=== PATIENT | male | born 1985 | race Caucasian/White ===

== ENCOUNTER 2016-05-13 18:30 | Emergency (ER) | payer OTHER ==
[2016-05-13] MEDS ORDERED: diphenhydrAMINE 25 MG CAPSULE PO STA (20:04)
[2016-05-13] MEDS ORDERED: diphenhydrAMINE 25 MG CAPSULE PO ONE (20:05)
[2016-05-13] MEDS ORDERED: NICOTINE 21 MG PATCH TOP STA (21:46)
[2016-05-13] MEDS ORDERED: NICOTINE 21 MG PATCH TOP ONE (21:49)
[2016-05-13] MEDS ORDERED: LORazepam 0.5 MG TABLET PO STA (23:13)
[2016-05-13] MEDS ORDERED: LORazepam 0.5 MG TABLET ONE (23:17)
[2016-05-14] MEDS ORDERED: LORazepam 0.5 MG TABLET PO STA ×2 (00:59→10:59)
[2016-05-14] MEDS ORDERED: LORazepam 0.5 MG TABLET ONE ×2 (01:03→11:02)
== END 2016-05-14 11:07 | disposition home or self-care (01) ==
DX: F10.129 Alcohol abuse with intoxication, unspecified (principal); R45.851 Suicidal ideations; Y90.8 Blood alcohol level of 240 mg/100 ml or more; F41.9 Anxiety disorder, unspecified; F32.9 Major depressive disorder, single episode, unspecified; F90.9 Attention-deficit hyperactivity disorder, unspecified type; F17.200 Nicotine dependence, unspecified, uncomplicated
CPT/HCPCS: 36415; 80053; 80306; 80307; 80320; 80329; 81003; 83690; 84443; 85025; 99284; A9270

== ENCOUNTER 2016-07-29 13:58 | Outpatient (CLI) | payer OTHER | END 2016-07-29 13:59 | disposition home or self-care (01) | DX: G47.30 Sleep apnea, unspecified (principal); G47.8 Other sleep disorders; R06.83 Snoring; R51 Headache; G47.10 Hypersomnia, unspecified ==

== ENCOUNTER 2016-08-22 22:35 | Outpatient (CLI) | payer OTHER | END 2016-08-22 22:36 | disposition home or self-care (01) | LOC: SC 22:35 | PROVIDERS: ATTEND Internal Medicine Pulmonary Disease | DX: G47.30 Sleep apnea, unspecified (principal) | CPT/HCPCS: 95810 ==

== ENCOUNTER 2016-10-28 15:26 | Outpatient (CLI) | payer OTHER | END 2016-10-28 15:27 | disposition home or self-care (01) | LOC: SC 15:26 | PROVIDERS: ATTEND Internal Medicine Pulmonary Disease | DX: G47.33 Obstructive sleep apnea (adult) (pediatric) (principal) | CPT/HCPCS: 99212; 99213 ==

== ENCOUNTER 2016-12-01 19:26 | Outpatient (CLI) | payer OTHER | END 2016-12-01 19:27 | disposition home or self-care (01) | LOC: SC 19:26 | PROVIDERS: ATTEND Internal Medicine Pulmonary Disease | DX: G47.8 Other sleep disorders (principal) | CPT/HCPCS: 95810 ==

== ENCOUNTER 2016-12-17 14:19 | Outpatient (CLI) | payer OTHER | END 2016-12-17 14:20 | disposition home or self-care (01) | LOC: SC 14:19 | PROVIDERS: ATTEND Internal Medicine Pulmonary Disease | DX: G47.8 Other sleep disorders (principal) | CPT/HCPCS: 99212; 99213 ==

== ENCOUNTER 2017-02-19 15:17 | Emergency (ER) | payer OTHER ==
[2017-02-19] MEDS ORDERED: HYDROmorphone 1 MG/ML SYRINGE IM STA (16:26)
--- NOTE | 2017-02-19 16:29 | ED Physician Documentation ---
History of Present Illness - Stated complaint Stated Complaint: LOWER BACK PX - Chief complaint Chief Complaint: Back Pain - History obtained from History obtained from: Patient (pt states that approx 1-2 hours ago he bent over to tie his shoe and stretched nad had a sudden onset of lower back pain. he states that he now has tingling down his legs. no urinary sx, no bowel sx, no fevers, no trauma, no numbness in his upper thighs, states he had pain similar to this several years go and was dx with prostititis.) Review of Systems Constitutional: denies: Fever, Chills Cardiac: denies: Chest pain / pressure, Palpitations Respiratory: denies: Dyspnea, Cough GI: denies: Abdominal Pain, Nausea, Vomiting, Constipation, Diarrhea, Hematemesis : denies: Dysuria, Hesitancy, Unable to Void, Incontinent Skin: denies: Rash, Lesions Musculoskeletal: reports: Back pain. denies: Extremity pain, Joint pain, Joint swelling, Pain with weight bearing Neurologic: reports: Numbness (tingling to bilateral legs) PD PAST MEDICAL HISTORY - Past Medical History Cardiovascular: Other (anxiety, depression ) Psych: Depression - Past Surgical History Past Surgical History: Yes - Present Medications Home Medications: Ambulatory Orders Medication Instructions Recorded Confirmed HYDROcod/ACETAM 5/325 [[place] 5/325] 1 - 2 ea PO Q6H PRN #15 tablet 02/19/17 Mirtazapine [Remeron] 15 mg PO DAILY 02/19/17 02/19/17 OLANZapine [Zyprexa] 10 mg PO DAILY PM 02/19/17 02/19/17 - Allergies Allergies/Adverse Reactions: Allergies Allergy/AdvReac Type Severity Reaction Status Date / Time No Known Drug Allergies Allergy Verified 02/19/17 15:33 - Social History Does the pt smoke?: Yes Smoking Status: Current every day smoker Does the pt drink ETOH?: Yes Does the pt have substance abuse?: No - Immunizations Immunizations are current?: Yes PD ED PE NORMAL - Vitals Vital signs reviewed: Yes - General General: Alert and oriented X 3, No acute distress, Well developed/nourished - HEENT HEENT: Moist mucous membranes - Cardiac Cardiac: RRR, No murmur - Respiratory Respiratory: No respiratory distress - Abdomen Abdomen: Normal bowel sounds, Soft, Non tender - Back Back: No: No spinal TTP (TTP lower lumbar region medline and bilateral parapsinal. + uscle spasm with tenderness to the right paraspinal region. ) - Derm Derm: Normal color, No rash - Extremities Extremities: No deformity, No tenderness to palpate, No edema - Neuro Neuro: Alert and oriented X 3, Normal speech - Psych Psych: Normal mood, Normal affect Results - Vitals Vitals: Vital Signs - 24 hr 02/19/17 15:28 Temperature 36.4 C L Heart Rate 87 Respiratory 18 Rate Blood Pressure 159/102 H O2 Saturation 100 Oxygen O2 Source Room air PD MEDICAL DECISION MAKING - ED course Complexity details: d/w patient ED course: pt with hx and PE that is C/W MSK back pain. does have bilateral sx but has not other sx that are concerning for cauda equina. will hold on MRI for now. he urinated in the ER w/o problems. no trauma so doubt fracture. will hold on X-rays for now. discussed with the pt. he has flexeril and lidocaine patches at home. We discussed NSAID use. offered toradol but he refused. stated that he has had tradol in the past for his upper back pain but that did not help. will treat symptoms for now. pt was given return precautions. Departure - Departure Disposition: 01 Home, Self Care Clinical Impression: Back pain, Hypertension, Radiculopathy Condition: Good Instructions: ED Low Back Pain Injury Follow-Up: primary, care provider [Other] Prescriptions: HYDROcod/ACETAM 5/325 [Leonidas 5/325] 1 - 2 ea PO Q6H PRN #15 tablet PRN Reason: Pain Comments: take the medications as we discussed. Return to the ER for any new or worsening symptoms, fevers, increase in pain, problems urinating or any other concerning symptoms. Call your primary care provider for a follow up next week.
[2017-02-19] MEDS ORDERED: HYDROmorphone 1 MG/ML SYRINGE ONE (16:37)
[2017-02-19 17:09] VITALS: BP 156/107
== END 2017-02-19 17:08 | disposition home or self-care (01) ==
LOC: ED 15:17
DX: M54.5 Low back pain (principal); M54.10 Radiculopathy, site unspecified; I10 Essential (primary) hypertension; F17.200 Nicotine dependence, unspecified, uncomplicated
CPT/HCPCS: 96372; 99283; J1170

== ENCOUNTER 2019-03-01 16:35 | Emergency (ER) | payer OTHER ==
--- NOTE | 2019-03-01 18:10 | ED Physician Documentation ---
PD HPI BACK INJURY - Stated complaint Stated Complaint: LOW BACK PAIN - History obtained from History obtained from: Patient - History of Present Illness Location: Right, Lower Type of injury: No: Fall, Twist Where injury occurred: Home Timing - onset: Today (Today around noon time he was lifting groceries with slight bending and twisting noted no abrupt worsening of his back pain. He does have a history of back pain episodically in the past with some mild baseline pain often. He does not take any daily medicines. The pain was significantly worse after onset and has continued through the afternoon despite some stretching heat and rest.) Timing - duration: Hours Timing - details: Abrupt onset, Still present, Constant Quality: Pain, Spasm Improved by: No: Rest, Immobilization Worsened by: Moving, Palpating Associated symptoms: No: Fever, Weakness, Numbness, Incontinent of urine Contributing factors: No: Prior back surgery, Work related Similar symptoms before: Diagnosis (Recurrent low back pain with last significant episode about 2 years ago and does not take any daily medicines) Recently seen: Not recently seen Review of Systems Constitutional: denies: Fever, Chills Nose: denies: Rhinorrhea / runny nose, Congestion Throat: denies: Sore throat Respiratory: denies: Cough GI: denies: Nausea, Vomiting, Diarrhea : denies: Incontinent, Hematuria Skin: denies: Rash, Lesions Neurologic: reports: Numbness (intermittent down left posterolateral thigh). denies: Focal weakness PD PAST MEDICAL HISTORY - Past Medical History Cardiovascular: Other (anxiety, depression ) Psych: Depression Musculoskeletal: Chronic back pain (episodic and not regularly; last episode 2016, with some pains intermittently since. ) - Past Surgical History Past Surgical History: Yes - Present Medications Home Medications: Ambulatory Orders Medication Instructions Recorded Confirmed HYDROcod/ACETAM 5/325 [[place] 5/325] 1 - 2 ea PO Q6H PRN #15 tablet 02/19/17 Mirtazapine [Remeron] 15 mg PO DAILY 02/19/17 02/19/17 OLANZapine [Zyprexa] 10 mg PO DAILY PM 02/19/17 02/19/17 Naproxen 500 mg PO BID #20 tablet 03/01/19 Oxycodone HCl/Acetaminophen 1 each PO Q4H PRN #20 tablet 03/01/19 [Percocet 7.5-325 mg Tablet] Tizanidine HCl 4 mg PO TID PRN #25 capsule 03/01/19 dexAMETHasone [Decadron] 4 mg PO DAILY #5 tablet 03/01/19 - Allergies Allergies/Adverse Reactions: Allergies Allergy/AdvReac Type Severity Reaction Status Date / Time No Known Drug Allergies Allergy Verified 03/01/19 16:40 - Social History Does the pt smoke?: Yes Smoking Status: Current every day smoker Does the pt drink ETOH?: Yes Does the pt have substance abuse?: No - Immunizations Immunizations are current?: Yes PD ED PE NORMAL - Vitals Vital signs reviewed: Yes - General General: Alert and oriented X 3, Well developed/nourished, Other (He appears uncomfortable with a slightly bent position and guarded range of motion.) - Neck Neck: Supple, no meningeal sign, No adenopathy - Cardiac Cardiac: RRR, No murmur - Respiratory Respiratory: Clear bilaterally - Abdomen Abdomen: Soft, Non tender - Back Back: No CVA TTP, Other (Tender in the upper upper to mid lumbar area and also in the right paralumbar muscles. There is no obvious deformity. There is limited range of motion due to guarding.) - Derm Derm: Normal color, Warm and dry - Extremities Extremities: No deformity, No tenderness to palpate, No edema, No calf tenderness / cord - Neuro Neuro: Alert and oriented X 3, No motor deficit, No sensory deficit, Other (2+ DTRs at the knees) Eye Opening: Spontaneous Motor: Obeys Commands Verbal: Oriented GCS Score: 15 Results - Vitals Vitals: Vital Signs - 24 hr 03/01/19 03/01/19 16:40 18:59 Temperature 36.8 C Heart Rate 92 69 Respiratory 18 18 Rate Blood Pressure 144/113 H 130/83 H O2 Saturation 98 100 Oxygen O2 Source Room air PD MEDICAL DECISION MAKING - ED course Complexity details: reviewed old records (The nurse reports that the patient's called and was concerned he may be exaggerating his degree of pain for work release or such. However the patient does appear uncomfortable and does have tenderness and does not have an KELLY form and his last visit to the ER was 2 and half years ago. At this point I would go with the idea of having some back pain episode and just be cautious on repeat visits.), re-evaluated patient, considered differential, d/w patient Departure - Departure Disposition: 01 Home, Self Care Clinical Impression: Low back strain Qualifiers: Encounter type: initial encounter Qualified Code(s): S39.012A - Strain of muscle, fascia and tendon of lower back, initial encounter Condition: Stable Record reviewed to determine appropriate education?: Yes Instructions: ED Low Back Pain Injury Prescriptions: dexAMETHasone [Decadron] 4 mg PO DAILY #5 tablet Naproxen 500 mg PO BID #20 tablet Oxycodone HCl/Acetaminophen [Percocet 7.5-325 mg Tablet] 1 each PO Q4H PRN #20 tablet PRN Reason: Pain Tizanidine HCl 4 mg PO TID PRN #25 capsule PRN Reason: Spasms Comments: Heat and gentle stretching for the low back to decrease spasming. Physical modalities such as chiropractic and massage are good for this. Off work for several days as needed to reduce strain on the low back. Anti-inflammatories such as naproxen twice daily for the next 7 to 10 days. Decadron steroid anti-inflammatory daily for 5 more days as well. To that add tizanidine if needed for muscle spasms and stiffness. Add Tylenol or oxycodone as needed for pain. Follow-up with your primary care if not improving well over the next several days and resolved by a week back to your baseline. Return if other symptoms develop worsening. Forms: Activity restrictions
[2019-03-01] MEDS ORDERED: KETOROLAC 60 MG/2 ML VIAL IM STA (18:24)
[2019-03-01] MEDS ORDERED: CHERRY SYRUP 10 ML UDC PO ONE (18:24)
[2019-03-01] MEDS ORDERED: METHOCARBAMOL 500 MG TABLET PO STA (18:24)
[2019-03-01] MEDS ORDERED: HYDROmorphone 1 MG/ML CARPUJECT IM STA (18:24)
[2019-03-01] MEDS ORDERED: DEXAMETHASONE 10 MG/ML VIAL PO STA (18:24)
[2019-03-01 19:00] VITALS: BP 130/83
== END 2019-03-01 19:15 | disposition home or self-care (01) ==
LOC: ED 16:35
DX: S39.012A Strain of muscle, fascia and tendon of lower back, initial encounter (principal); X50.0XXA Overexertion from strenuous movement or load, initial encounter; Y93.89 Activity, other specified; Y92.009 Unspecified place in unspecified non-institutional (private) residence as the place of occurrence of the external cause; F17.200 Nicotine dependence, unspecified, uncomplicated
CPT/HCPCS: 96372; 99284; A9270; J1170

== ENCOUNTER 2019-03-26 10:08 | Emergency (ER) | payer OTHER ==
[2019-03-26 10:31] LABS: MUDS CUTOFF CONCENTRATIONS CUTOFF CONC BELOW:
[2019-03-26 10:40] LABS: BILIRUBIN,URINE NEGATIVE (NEGATIVE); GLUCOSE, URINE (UA) NEGATIVE (NEGATIVE); KETONES,URINE (UA) 40 mg/dL (NEGATIVE); LEUKOCYTE ESTERASE, URINE NEGATIVE (NEGATIVE); NITRITE,URINE NEGATIVE (NEGATIVE); OCCULT BLOOD,URINE NEGATIVE (NEGATIVE); PH,URINE 5.5 PH (5.0-7.5); PROTEIN,URINE NEGATIVE (NEGATIVE); UROBILINOGEN,URINE 0.2 (NORMAL) E.U./dL (NORMAL)
[2019-03-26 10:44] LABS: CLARITY,URINE CLEAR (CLEAR)
[2019-03-26 10:46] LABS: AMPHETAMINE SCREEN,URINE NEGATIVE (NEGATIVE); BENZODIAZEPINES SCREEN, URINE NEGATIVE (NEGATIVE); COCAINE SCREEN URINE NEGATIVE (NEGATIVE); METHADONE SCREEN, URINE NEGATIVE (NEGATIVE); METHAMPHETAMINES SCREEN, URINE NEGATIVE (NEGATIVE); OPIATE SCREEN, URINE NEGATIVE (NEGATIVE); OXYCODONE SCREEN, URINE NEGATIVE (NEGATIVE); PROPOXYPHENE SCREEN, URINE NEGATIVE (NEGATIVE); TRICYCLIC ANTIDEPRESSANT,URINE NEGATIVE (NEGATIVE)
[2019-03-26 10:46] LABS: BASOPHILS % (AUTO) 0.4 %; EOSINOPHILS % (AUTO) 0.1 %; LYMPHOCYTES # (AUTO) 1.3 10^3/uL (1.5-3.5); LYMPHOCYTES % (AUTO) 15.4 %; MEAN CORPUSCULAR HEMOGLOBIN 29.5 pg (27.0-31.0); MEAN CORPUSCULAR HGB CONC 33.2 g/dL (32.0-36.0); MEAN PLATELET VOLUME 9.9 fL (7.4-11.4); MONOCYTES # (AUTO) 0.4 10^3/uL (0.0-1.0); MONOCYTES % (AUTO) 4.4 %; NEUTROPHILS # (AUTO) 6.7 10^3/uL (1.5-6.6); NEUTROPHILS % (AUTO) 79.3 %; PLT - PLATELET COUNT 296 10^3/uL (130-450); RED BLOOD COUNT 5.08 10^6/uL (4.70-6.10); RED CELL DISTRIBUTION WIDTH 13.7 % (12.0-15.0); WHITE BLOOD COUNT 8.5 x10^3/uL (4.8-10.8)
[2019-03-26 11:12] LABS: ACETAMINOPHEN < 10 ug/mL (10-30); ALBUMIN 5.5 g/dL (3.2-5.5); ALBUMIN/GLOBULIN RATIO 1.8 (1.0-2.2); ALKALINE PHOSPHATASE 63 IU/L (42-121); ALT ALANINE AMINOTRANSFERASE 23 IU/L (10-60); AST ASPARTATE AMINOTRANSFERASE 32 IU/L (10-42); BILIRUBIN,TOTAL 0.9 mg/dL (0.2-1.0); BUN - BLOOD UREA NITROGEN 19 mg/dL (6-20); CREATININE 0.9 mg/dL (0.6-1.2); GFR - MDRD 97 (>89); LIPASE 25 U/L (22-51); SALICYLATE < 6.0 mg/dL; TOTAL PROTEIN 8.6 g/dL (6.7-8.2)
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
[2019-03-26 11:14] LABS: CARBON DIOXIDE - CO2 24 mmol/L (21-32); CHLORIDE 99 mmol/L (101-111); GLUCOSE 74 mg/dL (70-100); SODIUM 137 mmol/L (135-145)
[2019-03-26] MEDS ORDERED: OLANZapine ODT 5 MG TABLET TL ONE (12:34)
[2019-03-26] MEDS ORDERED: OLANZapine ODT 5 MG TABLET TL STA (23:06)
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
[2019-03-27] MEDS ORDERED: OLANZapine ODT 5 MG TABLET TL STA (07:58)
[2019-03-27] MEDS ORDERED: KETOROLAC 60 MG/2 ML VIAL IM STA (14:03)
[2019-03-27 14:11] VITALS: BP 123/76
== END 2019-03-27 14:13 ==
LOC: ED 10:08
DX: F33.3 Major depressive disorder, recurrent, severe with psychotic symptoms (principal); F41.9 Anxiety disorder, unspecified; F19.10 Other psychoactive substance abuse, uncomplicated; F12.10 Cannabis abuse, uncomplicated; F10.10 Alcohol abuse, uncomplicated; F17.200 Nicotine dependence, unspecified, uncomplicated
CPT/HCPCS: 36415; 80320; 80329; 81003; 83690; 96372; 99283; 99285; A9270; G0427; Q3014; 80053; 80306; 80307; 81001; 84443; 85025; 87086

== ENCOUNTER 2020-08-02 11:50 | Outpatient (CLI) | payer OTHER | END 2020-08-02 23:59 | disposition home or self-care (01) | LOC: COV 11:50 | PROVIDERS: ATTEND Family Medicine | DX: R06.02 Shortness of breath (principal); M79.10 Myalgia, unspecified site; R53.83 Other fatigue; R09.81 Nasal congestion; Z20.822 Contact with and (suspected) exposure to COVID-19 ==

== ENCOUNTER 2020-08-09 14:21 | Outpatient (CLI) | payer OTHER | END 2020-08-09 14:22 | disposition critical access hospital (66) | LOC: EMS 14:21 | DX: R53.83 Other fatigue (principal); R11.2 Nausea with vomiting, unspecified; F41.9 Anxiety disorder, unspecified | CPT/HCPCS: A0425; A0429 ==

== ENCOUNTER 2020-08-09 14:42 | Inpatient (IN) | payer OTHER ==
[2020-08-09] MEDS ORDERED: SODIUM CHLORIDE 0.9% 1,000 ML IV STA ×3 (15:09→19:29)
[2020-08-09] MEDS ORDERED: DROPERIDOL 5 MG/2 ML VIAL IVP STA (15:10)
--- NOTE | 2020-08-09 15:12 | ED Physician Documentation ---
History of Present Illness - Stated complaint Stated Complaint: ANXIOUS - Chief complaint Chief Complaint: General - Additonal information Additional information: 35-year-old male was brought to the emergency department via EMS for acute anxi ety and vomiting. He had reportedly been abstaining from cannabis for nearly a month when today he consumed more than his usual dose which may have been around 100 mg. He states that he began vomiting immediately and just wants to sleep. On presentation he is quite wide-eyed and tachypneic hyperventilating. He denies chest pain or shortness of air. He feels nauseated. He denies focal abdominal pain. Denies that he had thoughts of self-harm or harm to others. 1800: Patient's has arrived at the bedside and provides more ancillary history. She reports the patient returned from [place] nearly 10 days ago. He has been having shortness of air and tachypnea and did go to [facility] on the . She reports a chest x-ray was completed but no testing was done and he was told he had a viral upper respiratory infection. Review of Systems Unable to obtain: Other (high on cannabis??) Constitutional: denies: Fever, Chills Eyes: reports: Reviewed and negative Ears: reports: Reviewed and negative Nose: reports: Reviewed and negative Throat: reports: Reviewed and negative Cardiac: reports: Reviewed and negative Respiratory: reports: Reviewed and negative GI: reports: Nausea, Vomiting. denies: Abdominal Swelling : reports: Reviewed and negative Skin: reports: Reviewed and negative Musculoskeletal: reports: Reviewed and negative Neurologic: reports: Reviewed and negative Psychiatric: reports: Reviewed and negative Endocrine: reports: Reviewed and negative PD PAST MEDICAL HISTORY - Past Medical History Cardiovascular: Other (anxiety, depression ) Respiratory: None Neuro: None Endocrine/Autoimmune: None Psych: Depression, Anxiety Musculoskeletal: Chronic back pain - Past Surgical History Past Surgical History: Yes - Present Medications Home Medications: Ambulatory Orders Medication Instructions Recorded Confirmed HYDROcod/ACETAM 5/325 [[place] 5/325] 1 - 2 ea PO Q6H PRN #15 tablet 02/19/17 Mirtazapine [Remeron] 15 mg PO DAILY 02/19/17 02/19/17 OLANZapine [Zyprexa] 10 mg PO DAILY PM 02/19/17 02/19/17 Naproxen 500 mg PO BID #20 tablet 12/16/19 Oxycodone HCl/Acetaminophen 1 each PO Q4H PRN #20 tablet 03/01/19 [Percocet 7.5-325 mg Tablet] Tizanidine HCl 4 mg PO TID PRN #25 capsule 03/01/19 dexAMETHasone [Decadron] 4 mg PO DAILY #5 tablet 03/01/19 LORazepam [Ativan] 1 mg PO TID PRN #15 tablet 03/26/19 traZODone [Desyrel] 50 mg PO HS PRN #15 tablet 03/26/19 - Allergies Allergies/Adverse Reactions: Allergies Allergy/AdvReac Type Severity Reaction Status Date / Time No Known Drug Allergies Allergy Verified 08/09/20 14:53 - Social History Does the pt smoke?: Yes Smoking Status: Current every day smoker Does the pt drink ETOH?: Yes Does the pt have substance abuse?: No - Immunizations Immunizations are current?: Yes PD ED PE EXPANDED - General General: In distress (tachypneic, requesting to sleep) - Neck Neck: Supple w/out meningeal sx. No: Adenopathy - Cardiac Cardiac: Tachy, Radial strong equal, Pedal strong equal, Cap refill < 2 sec. No: Murmur Present - Respiratory Respiratory: Clear to ausultation karson. No: Distress (tachypnea, unlabored) - Abdomen Abdomen: Normal Bowel sounds. No: Tender to palpation - Back Back: Normal exam. No: Vertebral tenderness, Soft tissue tenderness - Derm Derm: Normal color, Warm and dry - Extremities Extremities: Normal. No: Deformity, Tenderness - Neuro Neuro: Alert and Oriented X 3, CNII-XII intact, Normal speech (Sleepy but arouses easily. Speaking in full coherent sentences. States that he consumed too much cannabis and would simply like to sleep.) - GCS Eye Opening: Spontaneous Motor: Obeys Commands Verbal: Oriented Total: 15 - Psych Psych: Intoxicated / AOB, Poor eye contact, Anxious Results - Vitals Vitals: Vital Signs - 24 hr 08/09/20 14:46 Temperature 36.3 C L Heart Rate 121 H Respiratory 22 Rate Blood Pressure 140/95 H O2 Saturation 100 Oxygen O2 Source Room air - Labs Labs: Laboratory Tests 08/09/20 08/09/20 08/09/20 15:15 15:36 15:36 WBC 19.9 H RBC 5.00 Hgb 15.3 Hct 42.3 MCV 84.6 MCH 30.6 MCHC 36.2 H RDW 15.9 H Plt Count 364 MPV 9.3 Neut # (Auto) Not Reportable Lymph # (Auto) Not Reportable Ada # (Auto) Not Reportable Eos # (Auto) Not Reportable Baso # (Auto) Not Reportable Absolute Nucleated RBC Not Reportable Total Counted 100 Band Neuts % (Manual) 15 H Abnorm Lymph % (Manual) 0 Nucleated RBC % Not Reportable Neutrophils # (Manual) 17.9 H Lymphocytes # (Manual) 1.0 L Monocytes # (Manual) 1.0 Eosinophils # (Manual) 0.0 Basophils # (Manual) 0.0 Differential Comment MANUAL DIFFERENTIAL WBC Morphology 2+ TOXIC GRANULATION Platelet Estimate NORMAL (130-450,000) Platelet Morphology NORMAL APPEARANCE RBC Morph Micro Appear 1+ ANISOCYTOSIS VBG pH VBG pCO2 VBG pO2 VBG HCO3 VBG Total CO2 VBG O2 Saturation VBG Base Excess Sodium 130 L Potassium 3.3 L Chloride 98 L Carbon Dioxide 6 L* Anion Gap 26.0 H BUN 13 Creatinine 1.7 H Estimated GFR (MDRD) 46 L Glucose 488 H Lactic Acid Calcium 10.3 Phosphorus Magnesium Total Bilirubin 2.4 H AST 23 ALT 22 Alkaline Phosphatase 204 H Troponin I High Sens Total Protein 8.2 Albumin 4.5 Globulin 3.7 Albumin/Globulin Ratio 1.2 Triglycerides Cholesterol LDL Cholesterol Direct LDL Cholesterol, Calc VLDL Cholesterol HDL Cholesterol LDL/HDL Ratio dLDL/HDL Ratio Cholesterol/HDL Ratio Lipase 660 H TSH Urine Color YELLOW Urine Clarity CLEAR Urine pH 5.5 Ur Specific [place] >=1.030 H Urine Protein 100 H Urine Glucose (UA) >=1000 H Urine Ketones >=80 H Urine Occult Blood MODERATE H Urine Nitrite NEGATIVE Urine Bilirubin NEGATIVE Urine Urobilinogen 0.2 (NORMAL) Ur Leukocyte Esterase NEGATIVE Urine RBC 6-10 H Urine WBC 0-3 Ur Squamous Epith Cells FEW Squamous Amorphous Sediment Few Urine Bacteria Rare Urine Casts 6-10 RBC Casts Urine Mucus Few Strands Ur Microscopic Review INDICATED Urine Culture Comments NOT INDICATED Nasal Adenovirus (PCR) Nasal B. parapertussis DNA (PCR) Nasal Coronavir 229E PCR Nasal Coronavir HKU1 PCR Nasal Coronavir NL63 PCR Nasal Coronavir OC43 PCR Nasal Enterovir/Rhinovir PCR Nasal Influenza B PCR Nasal Influenza A PCR Nasal Parainfluen 1 PCR Nasal Parainfluen 2 PCR Nasal Parainfluen 3 PCR Nasal Parainfluen 4 PCR Nasal RSV (PCR) Nasal B.pertussis DNA PCR Nasal C.pneumoniae (PCR) Geoff Human Metapneumo PCR Nasal M.pneumoniae (PCR) Nasal SARS-CoV-2 (PCR) Salicylates < 6.0 Urine Opiates Screen POSITIVE H Ur Oxycodone Screen NEGATIVE Urine Methadone Screen NEGATIVE Ur Propoxyphene Screen NEGATIVE Acetaminophen < 10 L Ur Barbiturates Screen NEGATIVE Ur Tricyclics Screen NEGATIVE Ur Phencyclidine Scrn NEGATIVE Ur Amphetamine Screen NEGATIVE U Methamphetamines Scrn NEGATIVE U Benzodiazepines Scrn NEGATIVE Urine Cocaine Screen NEGATIVE U Cannabinoids Screen POSITIVE H Ethyl Alcohol < 5.0 Serum Ketones 08/09/20 08/09/20 08/09/20 15:36 17:36 17:36 WBC RBC Hgb Hct MCV MCH MCHC RDW Plt Count MPV Neut # (Auto) Lymph # (Auto) Ada # (Auto) Eos # (Auto) Baso # (Auto) Absolute Nucleated RBC Total Counted Band Neuts % (Manual) Abnorm Lymph % (Manual) Nucleated RBC % Neutrophils # (Manual) Lymphocytes # (Manual) Monocytes # (Manual) Eosinophils # (Manual) Basophils # (Manual) Differential Comment WBC Morphology Platelet Estimate Platelet Morphology RBC Morph Micro Appear VBG pH 6.893 L VBG pCO2 19.6 L VBG pO2 52.2 H VBG HCO3 3.7 L VBG Total CO2 4.3 L VBG O2 Saturation 83.5 H VBG Base Excess -28.3 L Sodium 130 L Potassium 3.0 L Chloride 100 L Carbon Dioxide < 6 L* Anion Gap 24.0 H BUN 13 Creatinine 1.4 H Estimated GFR (MDRD) 58 L Glucose 458 H Lactic Acid Calcium 9.3 Phosphorus Magnesium Total Bilirubin 2.1 H AST 25 ALT 20 Alkaline Phosphatase 186 H Troponin I High Sens Total Protein 7.4 Albumin 4.2 Globulin 3.2 Albumin/Globulin Ratio 1.3 Triglycerides Cholesterol LDL Cholesterol Direct LDL Cholesterol, Calc VLDL Cholesterol HDL Cholesterol LDL/HDL Ratio dLDL/HDL Ratio Cholesterol/HDL Ratio Lipase 825 H TSH 0.48 Urine Color Urine Clarity Urine pH Ur Specific [place] Urine Protein Urine Glucose (UA) Urine Ketones Urine Occult Blood Urine Nitrite Urine Bilirubin Urine Urobilinogen Ur Leukocyte Esterase Urine RBC Urine WBC Ur Squamous Epith Cells Amorphous Sediment Urine Bacteria Urine Casts Urine Mucus Ur Microscopic Review Urine Culture Comments Nasal Adenovirus (PCR) Nasal B. parapertussis DNA (PCR) Nasal Coronavir 229E PCR Nasal Coronavir HKU1 PCR Nasal Coronavir NL63 PCR Nasal Coronavir OC43 PCR Nasal Enterovir/Rhinovir PCR Nasal Influenza B PCR Nasal Influenza A PCR Nasal Parainfluen 1 PCR Nasal Parainfluen 2 PCR Nasal Parainfluen 3 PCR Nasal Parainfluen 4 PCR Nasal RSV (PCR) Nasal B.pertussis DNA PCR Nasal C.pneumoniae (PCR) Geoff Human Metapneumo PCR Nasal M.pneumoniae (PCR) Nasal SARS-CoV-2 (PCR) Salicylates Urine Opiates Screen Ur Oxycodone Screen Urine Methadone Screen Ur Propoxyphene Screen Acetaminophen Ur Barbiturates Screen Ur Tricyclics Screen Ur Phencyclidine Scrn Ur Amphetamine Screen U Methamphetamines Scrn U Benzodiazepines Scrn Urine Cocaine Screen U Cannabinoids Screen Ethyl Alcohol Serum Ketones MODERATE H 08/09/20 08/09/20 08/09/20 17:36 18:50 18:50 WBC RBC Hgb Hct MCV MCH MCHC RDW Plt Count MPV Neut # (Auto) Lymph # (Auto) Ada # (Auto) Eos # (Auto) Baso # (Auto) Absolute Nucleated RBC Total Counted Band Neuts % (Manual) Abnorm Lymph % (Manual) Nucleated RBC % Neutrophils # (Manual) Lymphocytes # (Manual) Monocytes # (Manual) Eosinophils # (Manual) Basophils # (Manual) Differential Comment WBC Morphology Platelet Estimate Platelet Morphology RBC Morph Micro Appear VBG pH VBG pCO2 VBG pO2 VBG HCO3 VBG Total CO2 VBG O2 Saturation VBG Base Excess Sodium 130 L Potassium 3.5 Chloride 101 Carbon Dioxide < 6 L* Anion Gap 23.0 H BUN 12 Creatinine 1.4 H Estimated GFR (MDRD) 58 L Glucose 453 H Lactic Acid 2.5 H Calcium 9.3 Phosphorus 4.1 Magnesium 2.1 Total Bilirubin AST ALT Alkaline Phosphatase Troponin I High Sens Total Protein Albumin Globulin Albumin/Globulin Ratio Triglycerides Cholesterol LDL Cholesterol Direct LDL Cholesterol, Calc VLDL Cholesterol HDL Cholesterol LDL/HDL Ratio dLDL/HDL Ratio Cholesterol/HDL Ratio Lipase TSH Urine Color Urine Clarity Urine pH Ur Specific [place] Urine Protein Urine Glucose (UA) Urine Ketones Urine Occult Blood Urine Nitrite Urine Bilirubin Urine Urobilinogen Ur Leukocyte Esterase Urine RBC Urine WBC Ur Squamous Epith Cells Amorphous Sediment Urine Bacteria Urine Casts Urine Mucus Ur Microscopic Review Urine Culture Comments Nasal Adenovirus (PCR) Nasal B. parapertussis DNA (PCR) Nasal Coronavir 229E PCR Nasal Coronavir HKU1 PCR Nasal Coronavir NL63 PCR Nasal Coronavir OC43 PCR Nasal Enterovir/Rhinovir PCR Nasal Influenza B PCR Nasal Influenza A PCR Nasal Parainfluen 1 PCR Nasal Parainfluen 2 PCR Nasal Parainfluen 3 PCR Nasal Parainfluen 4 PCR Nasal RSV (PCR) Nasal B.pertussis DNA PCR Nasal C.pneumoniae (PCR) Geoff Human Metapneumo PCR Nasal M.pneumoniae (PCR) Nasal SARS-CoV-2 (PCR) Salicylates Urine Opiates Screen Ur Oxycodone Screen Urine Methadone Screen Ur Propoxyphene Screen Acetaminophen Ur Barbiturates Screen Ur Tricyclics Screen Ur Phencyclidine Scrn Ur Amphetamine Screen U Methamphetamines Scrn U Benzodiazepines Scrn Urine Cocaine Screen U Cannabinoids Screen Ethyl Alcohol Serum Ketones 08/09/20 08/09/20 08/09/20 18:50 18:53 19:01 WBC RBC Hgb Hct MCV MCH MCHC RDW Plt Count MPV Neut # (Auto) Lymph # (Auto) Ada # (Auto) Eos # (Auto) Baso # (Auto) Absolute Nucleated RBC Total Counted Band Neuts % (Manual) Abnorm Lymph % (Manual) Nucleated RBC % Neutrophils # (Manual) Lymphocytes # (Manual) Monocytes # (Manual) Eosinophils # (Manual) Basophils # (Manual) Differential Comment WBC Morphology Platelet Estimate Platelet Morphology RBC Morph Micro Appear VBG pH VBG pCO2 VBG pO2 VBG HCO3 VBG Total CO2 VBG O2 Saturation VBG Base Excess Sodium Potassium Chloride Carbon Dioxide Anion Gap BUN Creatinine Estimated GFR (MDRD) Glucose Lactic Acid Calcium Phosphorus Magnesium Total Bilirubin AST ALT Alkaline Phosphatase Troponin I High Sens 15.3 Total Protein Albumin Globulin Albumin/Globulin Ratio Triglycerides 692 H Cholesterol 296 H LDL Cholesterol Direct 138 H LDL Cholesterol, Calc Not Reportable VLDL Cholesterol Not Reportable HDL Cholesterol 25 L LDL/HDL Ratio Not Reportable dLDL/HDL Ratio 5.5 Cholesterol/HDL Ratio 11.8 Lipase TSH Urine Color Urine Clarity Urine pH Ur Specific [place] Urine Protein Urine Glucose (UA) Urine Ketones Urine Occult Blood Urine Nitrite Urine Bilirubin Urine Urobilinogen Ur Leukocyte Esterase Urine RBC Urine WBC Ur Squamous Epith Cells Amorphous Sediment Urine Bacteria Urine Casts Urine Mucus Ur Microscopic Review Urine Culture Comments Nasal Adenovirus (PCR) NOT DETECTED Nasal B. parapertussis DNA (PCR) NOT DETECTED Nasal Coronavir 229E PCR NOT DETECTED Nasal Coronavir HKU1 PCR NOT DETECTED Nasal Coronavir NL63 PCR NOT DETECTED Nasal Coronavir OC43 PCR DETECTED A Nasal Enterovir/Rhinovir PCR NOT DETECTED Nasal Influenza B PCR NOT DETECTED Nasal Influenza A PCR NOT DETECTED Nasal Parainfluen 1 PCR NOT DETECTED Nasal Parainfluen 2 PCR NOT DETECTED Nasal Parainfluen 3 PCR NOT DETECTED Nasal Parainfluen 4 PCR NOT DETECTED Nasal RSV (PCR) NOT DETECTED Nasal B.pertussis DNA PCR NOT DETECTED Nasal C.pneumoniae (PCR) NOT DETECTED Geoff Human Metapneumo PCR NOT DETECTED Nasal M.pneumoniae (PCR) NOT DETECTED Nasal SARS-CoV-2 (PCR) NOT DETECTED Salicylates Urine Opiates Screen Ur Oxycodone Screen Urine Methadone Screen Ur Propoxyphene Screen Acetaminophen Ur Barbiturates Screen Ur Tricyclics Screen Ur Phencyclidine Scrn Ur Amphetamine Screen U Methamphetamines Scrn U Benzodiazepines Scrn Urine Cocaine Screen U Cannabinoids Screen Ethyl Alcohol Serum Ketones - Rads (name of study) CXR Radiology: Final report received (No acute cardiopulmonary process) CT head Radiology: Final report received (No acute process.) Procedures - Central Line Central Line Preparation: Unable to obtain consent, Ultrasound used Central line location: Right IJ Central line type: Triple lumen Central line aftercare: Chlorhexidine disc placed, Secured, Placement confirmed, No pneumothorax, No complications, Pt tolerated well PD MEDICAL DECISION MAKING - ED course Complexity details: reviewed results, re-evaluated patient ED course: 35-year-old male presents to the emergency department initially with reported anxiety, hyperventilation and tachycardia after consuming 100 mg of cannabis. Reported to me initially that he just wanted to sleep and had not used cannabis for quite some time. On presentation he was fairly tachypneic and tachycardic but his vital signs were otherwise unrevealing. As he had reported excessive cannabis use to this provider initially we treated him with IV fluids as well as droperidol pending screening labs. 1700: Screening labs are unfortunately consistent with acute DKA. He is noted to be mildly hypokalemic with a potassium of 3.3. 20 mEq of potassium replacement ordered. Will defer insulin until electrolytes are corrected. He has received approximately 14 help 100 mL of fluid to date. Central line will be placed. Ketones are positive. Lactate mildly elevated at 2.5. He has an elevated anion gap. As his time in the emergency department has progressed he has become increasingly encephalopathic and obtunded. CT of the head was completed and did not show any acute findings. This gentleman will need to be admitted to the ICU for further evaluation and management of his electrolyte derangement as well as DKA. noted increasing lipase; CT of the abdomen is pending, though initially there was not abdominal pain elicited I have spoken with Dr. Hurt hospitalist at 1745 she agrees to bring the patient into the hospital once a troponin is negative. 1925: High-sensitivity troponin is negative. Dr. King will admit the patient to the ICU. - Critical Care Time(min): 45 Time Includes: Direct patient care, Review records, Reassess patient, Document care, Coordinate care Data interpretation: Labs, CXR, Prior EKG Procedures included in critical care time: Peripheral IV, Blood draw Procedures excluded from critical care time: Central IV Departure - Departure Disposition: 66 [facility] DC/Xfer Clinical Impression: DKA (diabetic ketoacidoses) Qualifiers: Diabetes mellitus complication detail: with coma Qualified Code(s): E08.11 - Diabetes mellitus due to underlying condition with ketoacidosis with coma Condition: Stable Record reviewed to determine appropriate education?: Yes Discharge Date/Time: 08/09/20 20:10
[2020-08-09 15:16] LABS: MUDS CUTOFF CONCENTRATIONS CUTOFF CONC BELOW:
[2020-08-09 15:21] LABS: GLUCOSE, URINE (UA) >=1000 mg/dL (NEGATIVE); KETONES,URINE (UA) >=80 mg/dL (NEGATIVE); LEUKOCYTE ESTERASE, URINE NEGATIVE (NEGATIVE); NITRITE,URINE NEGATIVE (NEGATIVE); OCCULT BLOOD,URINE MODERATE (NEGATIVE); PH,URINE 5.5 PH (5.0-7.5); PROTEIN,URINE 100 mg/dL (NEGATIVE); UROBILINOGEN,URINE 0.2 (NORMAL) E.U./dL (NORMAL)
[2020-08-09 15:23] LABS: CLARITY,URINE CLEAR (CLEAR)
[2020-08-09 15:26] LABS: BILIRUBIN,URINE NEGATIVE (NEGATIVE); ICTOTEST,URINE NEGATIVE
[2020-08-09 15:30] LABS: AMPHETAMINE SCREEN,URINE NEGATIVE (NEGATIVE); BARBITURATE SCREEN,UR NEGATIVE (NEGATIVE); BENZODIAZEPINES SCREEN, URINE NEGATIVE (NEGATIVE); COCAINE SCREEN URINE NEGATIVE (NEGATIVE); METHADONE SCREEN, URINE NEGATIVE (NEGATIVE); METHAMPHETAMINES SCREEN, URINE NEGATIVE (NEGATIVE); OPIATE SCREEN, URINE POSITIVE (NEGATIVE); OXYCODONE SCREEN, URINE NEGATIVE (NEGATIVE); PROPOXYPHENE SCREEN, URINE NEGATIVE (NEGATIVE); THC CANNABINOID SCREEN, URINE POSITIVE (NEGATIVE); TRICYCLIC ANTIDEPRESSANT,URINE NEGATIVE (NEGATIVE)
[2020-08-09 15:32] LABS: AMORPHOUS SEDIMENT,UR Few /LPF; BACTERIA,URINE Rare /HPF (None Seen); MUCUS,URINE Few Strands; SQUAMOUS EPITHELIAL CELL,UR FEW Squamous (<= Few); WBC,URINE 0-3 /HPF (0-3)
[2020-08-09 15:33] LABS: CASTS, URINE 6-10 RBC Casts /LPF
[2020-08-09 15:41] LABS: BASOPHILS % (AUTO) 0.6 %; HCT - HEMATOCRIT 42.3 % (42.0-52.0); HGB - HEMOGLOBIN 15.3 g/dL (14.0-18.0); LYMPHOCYTES % (AUTO) 4.3 %; MEAN CORPUSCULAR HEMOGLOBIN 30.6 pg (27.0-31.0); MEAN CORPUSCULAR HGB CONC 36.2 g/dL (32.0-36.0); MEAN CORPUSCULAR VOLUME 84.6 fL (80.0-94.0); MEAN PLATELET VOLUME 9.3 fL (7.4-11.4); MONOCYTES % (AUTO) 7.9 %; NEUTROPHILS % (AUTO) 86.6 %; PLT - PLATELET COUNT 364 10^3/uL (130-450); RED CELL DISTRIBUTION WIDTH 15.9 % (12.0-15.0); WHITE BLOOD COUNT 19.9 x10^3/uL (4.8-10.8)
[2020-08-09 15:45] LABS: ABNORMAL LYMPHS % (MANUAL) 0 %
[2020-08-09] MEDS ORDERED: LORazepam 2 MG/ML VIAL IVP STA (16:07)
[2020-08-09 16:19] LABS: BAND NEUTROPHILS % (MANUAL) 15 %; DIFFERENTIAL COMMENT MANUAL DIFFERENTIAL; LYMPHOCYTES % (MANUAL) 5 %; NEUTROPHILS # (MANUAL) 17.9 10^3/uL (1.5-6.6); PLATELET ESTIMATE, MANUAL NORMAL (130-450,000) (NORMAL); PLATELET MORPHOLOGY NORMAL APPEARANCE (NORMAL); RBC MORPHOLOGY (MULTIPLE) 1+ ANISOCYTOSIS (NORMAL); WBC MORPHOLOGY (MULTIPLE) 2+ TOXIC GRANULATION (NORMAL)
--- NOTE | 2020-08-09 16:43 | XRAY Report ---
PROCEDURE: Chest 1 View X-Ray INDICATIONS: chest pain TECHNIQUE: One view of the chest was acquired. COMPARISON: None. FINDINGS: Surgical changes and devices: A metallic density projects in the region of the right axilla, possibly external to the patient although indeterminate. Please correlate clinically. Lungs and pleura: No pleural effusions or pneumothorax. Lungs are clear. Mediastinum: Mediastinal contours appear normal. Heart size is normal. Bones and chest wall: No suspicious bony lesions. Overlying soft tissues appear unremarkable. IMPRESSION: No acute disease. Reviewed by: Tevin Bonds MD on 08/09/2020 4:42 PM PDT Approved by: Tevin Bonds MD on 08/09/2020 4:42 PM PDT Station ID: [id number]
[2020-08-09 16:53] LABS: ACETAMINOPHEN < 10 ug/mL (10-30); ALBUMIN 4.5 g/dL (3.2-5.5); ALBUMIN/GLOBULIN RATIO 1.2 (1.0-2.2); ALKALINE PHOSPHATASE 204 IU/L (42-121); ALT ALANINE AMINOTRANSFERASE 22 IU/L (10-60); AST ASPARTATE AMINOTRANSFERASE 23 IU/L (10-42); BILIRUBIN,TOTAL 2.4 mg/dL (0.2-1.0); BUN - BLOOD UREA NITROGEN 13 mg/dL (6-20); CALCIUM 10.3 mg/dL (8.5-10.3); CHLORIDE 98 mmol/L (101-111); CREATININE 1.7 mg/dL (0.6-1.2); ETOH - ETHANOL < 5.0 mg/dL; GFR - MDRD 46 (>89); GLUCOSE 488 mg/dL (70-100); LIPASE 660 U/L (22-51); POTASSIUM 3.3 mmol/L (3.5-5.0); SALICYLATE < 6.0 mg/dL; SODIUM 130 mmol/L (135-145); TOTAL PROTEIN 8.2 g/dL (6.7-8.2)
[2020-08-09 16:55] LABS: CARBON DIOXIDE - CO2 6 mmol/L (21-32)
[2020-08-09] MEDS ORDERED: POTASSIUM CHLOR 10 MEQ/100 ML 10 MEQ/100 ML BAG IV STA (17:01)
[2020-08-09 17:42] LABS: VBG BASE EXCESS -28.3 mmol/L (-2 - +2); VBG HCO3 3.7 mmol/L (23-28); VBG PCO2 19.6 mmHg (41-51); VBG PH 6.893 (7.31-7.41); VBG PO2 52.2 mmHg (25-47); VBG TOTAL CO2 4.3 mmol/L (24-29)
[2020-08-09 17:43] LABS: VBG OXYGEN SATURATION 83.5 % (60-80)
[2020-08-09 17:49] LABS: KETONES, SERUM (ACETEST) MODERATE (NEGATIVE)
[2020-08-09 18:10] LABS: BILIRUBIN,TOTAL 2.1 mg/dL (0.2-1.0); LIPASE 825 U/L (22-51); TOTAL PROTEIN 7.4 g/dL (6.7-8.2)
[2020-08-09 18:11] LABS: ALBUMIN 4.2 g/dL (3.2-5.5); ALBUMIN/GLOBULIN RATIO 1.3 (1.0-2.2); ALKALINE PHOSPHATASE 186 IU/L (42-121); ALT ALANINE AMINOTRANSFERASE 20 IU/L (10-60); AST ASPARTATE AMINOTRANSFERASE 25 IU/L (10-42); BUN - BLOOD UREA NITROGEN 13 mg/dL (6-20); CALCIUM 9.3 mg/dL (8.5-10.3); CHLORIDE 100 mmol/L (101-111); CREATININE 1.4 mg/dL (0.6-1.2); GFR - MDRD 58 (>89); GLUCOSE 458 mg/dL (70-100); SODIUM 130 mmol/L (135-145)
[2020-08-09 18:14] LABS: CARBON DIOXIDE - CO2 < 6 mmol/L (21-32)
--- NOTE | 2020-08-09 18:25 | CT Report ---
PROCEDURE: HEAD WO INDICATIONS: DKA< tacypnea TECHNIQUE: Noncontrast 4.5 mm thick angled axial sections acquired from the foramen magnum to the vertex. For r adiation dose reduction, the following was used: automated exposure control, adjustment of mA and/or kV according to patient size. COMPARISON: None. FINDINGS: Image quality: Excellent. CSF spaces: Basal cisterns are patent. No extra-axial fluid collections. Ventricles are normal in size and shape. Brain: No midline shift. No intracranial masses or hemorrhage. [place]-white matter interface is norm al. Skull and face: Calvarium and visualized facial bones are intact, without suspicious lesions. Sinuses: Moderate left maxillary sinus mucosal disease. Visualized sinuses and mastoids are otherwis e clear. IMPRESSION: 1. No acute intracranial abnormality. 2. Left maxillary sinus mucosal disease. Reviewed by: Perri Hood MD on 08/09/2020 6:23 PM PDT Approved by: Perri Hood MD on 08/09/2020 6:23 PM PDT Station ID: [id number]
--- NOTE | 2020-08-09 19:04 | XRAY Report ---
PROCEDURE: Chest for Line Placement INDICATIONS: CENTRAL LINE PLACEMENT TECHNIQUE: One view of the chest was acquired. COMPARISON: 08/09/2020 at 1547 hours FINDINGS: Surgical changes and devices: Right-sided central venous catheter is present, tip of which projects o eugenie the mid SVC. Lungs and pleura: No pleural effusions or pneumothorax. Lungs are clear. Mediastinum: Mediastinal contours appear normal. Heart size is normal. Bones and chest wall: No suspicious bony lesions. Overlying soft tissues appear unremarkable. IMPRESSION: No acute process. Reviewed by: Perri Hood MD on 08/09/2020 7:02 PM PDT Approved by: Perri Hood MD on 08/09/2020 7:02 PM PDT Station ID: [id number]
[2020-08-09 19:10] LABS: BUN - BLOOD UREA NITROGEN 12 mg/dL (6-20); CALCIUM 9.3 mg/dL (8.5-10.3); CHLORIDE 101 mmol/L (101-111); CREATININE 1.4 mg/dL (0.6-1.2); GFR - MDRD 58 (>89); GLUCOSE 453 mg/dL (70-100); POTASSIUM 3.5 mmol/L (3.5-5.0); SODIUM 130 mmol/L (135-145)
[2020-08-09] MEDS: POTASSIUM CHLOR 10 MEQ/100 ML 10 MEQ/100 ML BAG IV SCH ×2 (19:11→21:03)
[2020-08-09 19:12] LABS: CARBON DIOXIDE - CO2 < 6 mmol/L (21-32)
[2020-08-09] MEDS ORDERED: MORPHINE 2 MG/ML CARPUJECT IVP PRN (19:32)
[2020-08-09] MEDS ORDERED: ONDANSETRON 4 MG/2 ML VIAL IVP PRN (19:32)
[2020-08-09] MEDS ORDERED: ONDANSETRON ODT 4 MG TABLET TL PRN (19:32)
[2020-08-09] MEDS ORDERED: POTASSIUM CHLOR 20 MEQ/100 ML 20 MEQ/100 ML BAG IV ONE ×3 (19:38→22:31)
--- NOTE | 2020-08-09 19:42 | HISTORY & PHYSICAL EXAMINATION ---
History of Present Illness - Admitted From Admitted From:: Home - History Obtained From Records Reviewed: Yes History obtained from: Spouse, Daytime Hospitalist, EMR Exam Limitations: Patient is altered and unable to provide a history. - History of Present Illness HPI Comment/Other: This is a 35-year-old male with a past medical history significant for bipolar disorder, chronic back pain, anxiety/depression who presents today due to increasing fatigue as well as nausea and vomiting. Most of the history is obtained from his as he is altered and unable to provide a meaningful histo ry. His tells me that he went to [place] about 6 weeks ago and since he returned, he has been feeling sick. She states he was previously taking Abilify, lithium, Zoloft but he stopped taking these for at least the past 2 to 3 weeks. There was concern that he may have had a viral infection given he was feeling ill and was complaining of shortness of breath at times. He went to [facility] a few days ago where he was reportedly diagnosed with a URI and discharged home. His notes that she noticed he has been drinking more water this past few weeks and that he has lost about 10 to 15 pounds since he went to [place]. He had nausea and vomiting last week but then began to feel be tter over the weekend but today he had another episode of emesis. He told her that he was complaining of right upper quadrant pain. She is states he may have smoking marijuana today and does smoke marijuana occasionally. She does not believe he has drank any alcohol for the past few days but reports a history of alcohol abuse in the past. She states he would drink for 6 months to a year and then quit suddenly and they began to drink again at times. He was hospitalized at a rehab facility in [place] over a year ago for about 3 months. She states he was on Suboxone at the time but is currently not taking it. In the emergency department, he was found to be afebrile with a temperature of 3 6.3 C. He was tachycardic with a heart rate of 121. Blood pressure was in the 140s systolic. His respiratory rate was in the low 20s. He was saturating well on room air. Labs were significant for a white count of 19.9 with 15% bands. His initial sodium was 130, potassium 3.3, bicarbonate 6, anion gap 26, creatinine 1.7, and blood glucose 488. His total bilirubin was 2.4 with a normal AST and ALT. Lipase was 660. pH on VBG was 6.893. His serum ketones were positive. Given the above findings, medicine was consulted for admission. History - Past Medical History Respiratory: reports: None Neuro: reports: None Endocrine/Autoimmune: reports: None Psych: reports: Depression, Anxiety, Bipolar disorder Musculoskeletal: reports: Chronic back pain MRSA Hx?: No - Family & Social History Family History Comment/Other: His does not believe his parents have a history of diabetes. She does not recall any family history to her knowledge. Living arrangement: At home Living Situation: With family Social History Notes: The patient lives at home with his and 8-year-old daughter. He was previously the [employer] and retired in 2018. He worked for [employer] shortly after that. They have lived on [facility] for 6 years. He does have a history of marijuana and alcohol use although this is not consistent. Meds/Allgy - Home Medications Home Medications: Ambulatory Orders Medication Instructions Recorded Confirmed HYDROcod/ACETAM 5/325 [Hutchinson 5/325] 1 - 2 ea PO Q6H PRN #15 tablet 02/19/17 Mirtazapine [Remeron] 15 mg PO DAILY 02/19/17 02/19/17 OLANZapine [Zyprexa] 10 mg PO DAILY PM 02/19/17 02/19/17 Naproxen 500 mg PO BID #20 tablet 03/01/19 Oxycodone HCl/Acetaminophen 1 each PO Q4H PRN #20 tablet 03/01/19 [Percocet 7.5-325 mg Tablet] Tizanidine HCl 4 mg PO TID PRN #25 capsule 03/01/19 dexAMETHasone [Decadron] 4 mg PO DAILY #5 tablet 03/01/19 LORazepam [Ativan] 1 mg PO TID PRN #15 tablet 03/26/19 traZODone [Desyrel] 50 mg PO HS PRN #15 tablet 03/26/19 - Allergies Allergies/Adverse Reactions: Allergies Allergy/AdvReac Type Severity Reaction Status Date / Time No Known Drug Allergies Allergy Verified 08/09/20 14:53 Review of Systems - All Other Systems All Other Systems: reports: Other (Unable to obtain review of systems due to his encephalopathy.) Prior Level of Functionality: He is independent with his ADL's. Exam - Vital Signs Reviewed Vital Signs: Yes Vital Signs: Vital Signs x48h Temp Pulse Resp BP Pulse Ox 08/09/20 14:46 36.3 C L 121 H 22 140/95 H 100 - Physical Exam General Appearance: positive: Moderate distress, Lethargic, Other (He is lethargic but will open his eyes at times. Appears lethargic and restless at other times.) Eyes Bilateral: positive: PERRL, Conjunctivae nml ENT: positive: Dry mucous membranes. negative: No signs of dehydration Neck: positive: Nml inspection Respiratory: positive: Other (Tachypnic.). negative: No respiratory distress, Wheezes, Rales Cardiovascular: positive: Tachycardia. negative: Irregularly irregular, Systolic murmur Abdomen: positive: Non-tender, Nml bowel sounds, No distention. negative: Tenderness, Guarding, Rebound Skin: positive: Warm, Dry Extremities: positive: No pedal edema Neurologic/Psychiatric: positive: Other (Moving all four extremities. No obvious focal deficits. Does follow commands intermittently.). negative: Disoriented to person Conclusion/Plan - Problem List (1) DKA (diabetic ketoacidoses) Conclusion/Plan: He is quite obviously in DKA at this time and suspect that he has underlying type 1 diabetes. His pH is less than 6.9 and his bicarbonate is less than 6 with an anion gap in the mid 20s. Serum ketons are positive. His blood glucose is greater than 450. He has already received 1.5 L of IV fluids in the emergency department. At this time, we will admit him to intensive care unit and start him on insulin drip as his potassium is now above 3.5. We will continue aggressive IV hydration with normal saline. Check labs every 4 hours and transition to D5/half-normal when his blood glucose is less than 200 as long as his anion gap is still elevated. He is n.p.o. for time being. Check A1c. He will need diabetic education and nutrition consult and further work-up of this new diabetes. Qualifiers: Diabetes mellitus complication detail: with coma Qualified Code(s): E08.11 - Diabetes mellitus due to underlying condition with ketoacidosis with coma (2) Encephalopathy Conclusion/Plan: I suspect this is related to his diabetic ketoacidosis. CT of the head was unremarkable. His urine toxicology was positive for opiates and marijuana which is consistent with a history obtained from his . At this time, we will treat his underlying DKA in hopes that his mental status will improve over the next 24 hours. (3) Pancreatitis Conclusion/Plan: This may be secondary to alcohol use although his does not believe he has been drinking recently.. Although his T bili is mildly elevated, his AST and ALT are normal and therefore would not suspect gallstone pancreatitis. Given this new diagnosis of diabetes, he could very well have hypertriglyceridemia and we will check a stat lipid panel to evaluate for this although management would not change as he would still require IV insulin and IV fluids. Continue n.p.o. status. Aggressive IV hydration with saline. Pain control with morphine IV as needed. Zofran as needed for nausea. Given he has a soft abdomen without tenderness at this time, we will hold off on CT but consider one tomorrow with IV contrast once his renal function improves. Qualifiers: Chronicity: acute (4) Acute kidney injury Conclusion/Plan: His creatinine is elevated at 1.7 and repeat labs have shown improvement 1.4. This is likely prerenal injury due to dehydration from his diabetic ketoacidosis and poorly controlled diabetes. His urinalysis did reveal RBC casts as well as occult blood. We will continue aggressive IV hydration and monitor his renal function and urine output. (5) Leukocytosis Conclusion/Plan: This is likely reactive. He does have 15% bands noted and his white count is nearly 20,000. There has been no evidence of infection at this time. We will hold off on antibiotics and continue to monitor. Blood cultures have been obtained (6) Hypokalemia Conclusion/Plan: His potassium is now improved to 3.5 and so we will initiate the insulin drip as mentioned above. We will repeat the potassium aggressively with potassium in his IV fluids as well as 20 mEq via central line. We will continue to monitor every 4 hours and will hold insulin drip if his potassium decreases to less than 3.3. (7) Hyponatremia Conclusion/Plan: This is pseudohyponatremia secondary to the hyperglycemia. When corrected for hyperglycemia, his sodium is within normal limits. (8) Marijuana abuse Conclusion/Plan: He does have a history of marijuana use but his tells me that he can quit for up to months at a time. His urine toxicology was positive for marijuana. We will discuss this further with the patient once he is able to participate in a conversation. (9) Bipolar disorder Conclusion/Plan: We will need to discuss this further with the patient once he is able to par ticipate in a conversation. We will need to discuss resuming his previous medications and ensuring he has appropriate follow-up. - Lab Results Lab results reviewed: Yes Ky Bones: 08/09/20 15:36 08/09/20 18:50 Core Measures - Anticipated LOS I expect patient to be DC'd or transferred within 96 hours.: Yes - Issues Hospital Issues and Management Plan: 35-year-old male presents with nausea or vomiting and tachypnea found to have diabetic acidosis with pancreatitis. Will admit to intensive care unit for IV insulin and aggressive IV hydration. - DVT/VTE - Prophylaxis VTE/DVT Device ordered at admit?: Yes VTE/DVT Prophylaxis med ordered at admit?: Yes
[2020-08-09] MEDS ORDERED: SODIUM CHLORIDE 0.9% 1,000 ML IV ONE (19:49)
[2020-08-09 19:56] LABS: MAGNESIUM 2.1 mg/dL (1.7-2.8); PHOSPHORUS 4.1 mg/dL (2.5-4.6)
[2020-08-09 20:00] LABS: B. PARAPERTUSSIS- RESP PCR PAN NOT DETECTED; B. PERTUSSIS- RESP PCR PANEL NOT DETECTED; C. PNEUMONIAE- RESP PCR PANEL NOT DETECTED; CORONAVIRUS 229E-RESP PCR NOT DETECTED; CORONAVIRUS HKU1-RESP PCR NOT DETECTED; CORONAVIRUS NL63-RESP PCR NOT DETECTED; CORONAVIRUS OC43-RESP PCR DETECTED; HUMAN METAPNEUMOVIRUS NOT DETECTED; INFLUENZA A- RESP PCR PANEL NOT DETECTED; INFLUENZA B - RESP PCR PANEL NOT DETECTED; M. PNEUMONIAE- RESP PCR PANEL NOT DETECTED; PARAINFLUENZA VIRUS 1 NOT DETECTED; PARAINFLUENZA VIRUS 2 NOT DETECTED; PARAINFLUENZA VIRUS 3 NOT DETECTED; PARAINFLUENZA VIRUS 4 NOT DETECTED; RHINOVIRUS/ENTEROVIRUS NOT DETECTED; RSV- RESP PCR PANEL NOT DETECTED; SARS-CoV-2 -RESP PCR PANEL NOT DETECTED
[2020-08-09] MEDS ORDERED: POTASSIUM CHLORIDE INJ 40 MEQ in DEXTROSE 5%-0.45% NACL 980 ML IV SCH (20:00)
[2020-08-09] MEDS ORDERED: INSULIN REGULAR HUMAN 100 UNIT in SODIUM CHLORIDE 0.9% 100ML 99 ML IV SCH (20:00)
[2020-08-09] MEDS ORDERED: IOVERSOL 320 100 ML VIAL IVP ONE (20:05)
[2020-08-09] MEDS: NS W/20 MEQ KCL 1,000 ML IV SCH (20:20)
[2020-08-09] MEDS ORDERED: INSULIN REGULAR HUMAN 100 UNIT/1 ML 10 ML MDV ONE (20:21)
[2020-08-09 20:23] LABS: CHOL/HDL RATIO 11.8 (<5.0); CHOLESTEROL 296 mg/dL; HDL CHOLESTEROL 25 mg/dL; TRIGLYCERIDES 692 mg/dL
[2020-08-09 20:44] LABS: LDL CHOLESTEROL,DIRECT 138 mg/dL; LDLD/HDL RATIO 5.5 (<3.6)
[2020-08-09] MEDS: SODIUM CHLORIDE FLUSH 0.9% 10 ML SYRINGE IVP PRN (21:04)
[2020-08-09 22:27] LABS: BUN - BLOOD UREA NITROGEN 14 mg/dL (6-20); CALCIUM 7.8 mg/dL (8.5-10.3); CHLORIDE 109 mmol/L (101-111); CREATININE 1.1 mg/dL (0.6-1.2); GFR - MDRD 77 (>89); GLUCOSE 299 mg/dL (70-100); PHOSPHORUS 2.9 mg/dL (2.5-4.6); POTASSIUM 3.6 mmol/L (3.5-5.0); SODIUM 132 mmol/L (135-145)
[2020-08-09 22:29] LABS: CARBON DIOXIDE - CO2 < 6 mmol/L (21-32)
[2020-08-09] MEDS: D5.45NS W/20 MEQ KCL 1,000 ML IV SCH (23:53)
[2020-08-10] MEDS: SODIUM CHLORIDE FLUSH 0.9% 10 ML SYRINGE IVP SCH ×3 (01:45→18:26)
[2020-08-10] MEDS: SODIUM CHLORIDE FLUSH 0.9% 10 ML SYRINGE IVP PRN ×4 (01:45→22:01)
[2020-08-10 02:08] LABS: CALCIUM 9.1 mg/dL (8.5-10.3); CREATININE 1.1 mg/dL (0.6-1.2); MAGNESIUM 1.9 mg/dL (1.7-2.8); POTASSIUM 2.7 mmol/L (3.5-5.0)
[2020-08-10] MEDS ORDERED: POTASSIUM CHLOR 20 MEQ/100 ML 20 MEQ/100 ML BAG IV ONE ×7 (02:20→22:28)
[2020-08-10] MEDS: NS W/20 MEQ KCL 1,000 ML IV SCH ×3 (04:11→19:33)
[2020-08-10 04:44] LABS: BASOPHILS % (AUTO) 0.3 %; HCT - HEMATOCRIT 36.8 % (42.0-52.0); HGB - HEMOGLOBIN 13.4 g/dL (14.0-18.0); LYMPHOCYTES % (AUTO) 3.1 %; MEAN CORPUSCULAR HEMOGLOBIN 30.2 pg (27.0-31.0); MEAN CORPUSCULAR HGB CONC 36.4 g/dL (32.0-36.0); MEAN CORPUSCULAR VOLUME 82.9 fL (80.0-94.0); MONOCYTES % (AUTO) 6.5 %; NEUTROPHILS % (AUTO) 89.3 %; PLT - PLATELET COUNT 246 10^3/uL (130-450); RED BLOOD COUNT 4.44 10^6/uL (4.70-6.10); RED CELL DISTRIBUTION WIDTH 15.9 % (12.0-15.0); WHITE BLOOD COUNT 20.3 x10^3/uL (4.8-10.8)
[2020-08-10 04:46] LABS: ABNORMAL LYMPHS % (MANUAL) 0 %
[2020-08-10 05:02] LABS: ALBUMIN 3.6 g/dL (3.2-5.5); ALKALINE PHOSPHATASE 153 IU/L (42-121); ALT ALANINE AMINOTRANSFERASE 20 IU/L (10-60); AMYLASE 292 U/L (28-100); AST ASPARTATE AMINOTRANSFERASE 26 IU/L (10-42); BILIRUBIN,DIRECT 0.1 mg/dL (0.1-0.5); BILIRUBIN,TOTAL 1.6 mg/dL (0.2-1.0); BUN - BLOOD UREA NITROGEN 12 mg/dL (6-20); CALCIUM 9.2 mg/dL (8.5-10.3); CHLORIDE 113 mmol/L (101-111); CREATININE 1.1 mg/dL (0.6-1.2); GFR - MDRD 77 (>89); GLUCOSE 207 mg/dL (70-100); LIPASE 213 U/L (22-51); MAGNESIUM 1.9 mg/dL (1.7-2.8); POTASSIUM 3.5 mmol/L (3.5-5.0); SODIUM 135 mmol/L (135-145); TOTAL PROTEIN 6.8 g/dL (6.7-8.2)
[2020-08-10 05:06] LABS: CARBON DIOXIDE - CO2 < 6 mmol/L (21-32); PHOSPHORUS < 1.0 mg/dL (2.5-4.6)
[2020-08-10] MEDS ORDERED: POTASSIUM PHOSPHATE 21 MMOL in SODIUM CHLORIDE 0.9% 250 ML IV ONE (05:20)
[2020-08-10] MEDS: INSULIN REGULAR HUMAN 100 UNIT in SODIUM CHLORIDE 0.9% 100ML 99 ML IV SCH ×2 (05:27→15:01)
[2020-08-10 05:40] LABS: BAND NEUTROPHILS % (MANUAL) 28 %; LYMPHOCYTES # (MANUAL) 0.6 10^3/uL (1.5-3.5); LYMPHOCYTES % (MANUAL) 3 %; MONOCYTES # (MANUAL) 0.6 10^3/uL (0.0-1.0); NEUTROPHILS # (MANUAL) 19.1 10^3/uL (1.5-6.6)
[2020-08-10 05:41] LABS: DIFFERENTIAL COMMENT MANUAL DIFFERENTIAL; PLATELET ESTIMATE, MANUAL NORMAL (130-450,000) (NORMAL); RBC MORPHOLOGY (MULTIPLE) NORMAL APPEARANCE (NORMAL)
[2020-08-10] MEDS: POTASSIUM PHOSPHATE 15 MMOL in SODIUM CHLORIDE 0.9% 250 ML IV SCH ×3 (06:18→20:10)
[2020-08-10] MEDS ORDERED: IOVERSOL 320 100 ML VIAL IVP ONE ×2 (06:24→07:30)
[2020-08-10] MEDS: D5.45NS W/20 MEQ KCL 1,000 ML IV SCH ×2 (08:00→17:30)
--- NOTE | 2020-08-10 08:06 | CT Report ---
PROCEDURE: Abdomen/Pelvis W INDICATIONS: Nausea, vomiting, abdominal pain, elevated lipase CONTRAST: IV CONTRAST: Optiray 320 ml: 100 PO CONTRAST: *NO PO CONTRAST TECHNIQUE: After the administration of intravenous contrast, 5 mm thick sections acquired from the diaphragms to the symphysis. 5 mm thick coronal and sagittal reformats were acquired. For radiation dose reducti on, the following was used: automated exposure control, adjustment of mA and/or kV according to isabel ent size. COMPARISON: None. FINDINGS: Image quality: Excellent. ABDOMEN: Lung bases: Scattered areas of patchy groundglass airspace opacity in both lower lobes as well as the right middle lobe and the lingular segment of the left upper lobe. This is consistent with atypical pneumonia. Solid organs: Low attenuation of the hepatic parenchyma consistent with hepatic steatosis. Superimpos ed more dense focal fatty infiltration of the medial left hepatic lobe. Normal size of the liver. No focal hepatic mass. Hepatic and portal veins appear patent. The gallbladder is unremarkable. No intra hepatic or extrahepatic biliary ductal dilatation. No pancreatic duct dilatation. There is mild perip ancreatic fat stranding. No organized fluid collection is seen adjacent to the pancreas. The spleen, adrenal glands, and kidneys are unremarkable. Peritoneum and bowel: Bowel loops demonstrate normal wall thickness and caliber. No free fluid or a ir. Nodes and vessels: No retroperitoneal or mesenteric adenopathy by size criteria. Aorta and inferior vena cava are normal in size. Miscellaneous: No ventral hernias. PELVIS: Genitourinary: Bladder wall thickness is normal. Miscellaneous: No inguinal hernias or adenopathy. Bones: No suspicious bony lesions. No vertebral body compression fractures. IMPRESSION: Acute interstitial pancreatitis. Bilateral atypical pneumonia. Hepatic steatosis. Reviewed by: Daniel Hunt MD on 08/10/2020 8:05 AM PDT Approved by: Daniel Hunt MD on 08/10/2020 8:05 AM PDT Station ID: [id number]
[2020-08-10] MEDS: ENOXAPARIN 40 MG/0.4 ML SYRINGE SUBQ SCH (09:44)
[2020-08-10] MEDS: FENOFIBRATE 48 MG TABLET PO SCH (10:11)
[2020-08-10 10:20] LABS: CALCIUM 9.1 mg/dL (8.5-10.3); CREATININE 0.9 mg/dL (0.6-1.2); MAGNESIUM 1.8 mg/dL (1.7-2.8); POTASSIUM 2.7 mmol/L (3.5-5.0)
[2020-08-10] MEDS: POTASSIUM CHLOR 20 MEQ/100 ML 20 MEQ/100 ML BAG IV SCH ×4 (10:46→15:35)
[2020-08-10 11:44] LABS: ESTIMATED AVERAGE GLUCOSE 364 mg/dL (70-100); HEMOGLOBIN A1c% 14.3 % (4.27-6.07)
--- NOTE | 2020-08-10 12:43 | XRAY Report ---
PROCEDURE: Chest for Line Placement INDICATIONS: verify line placement d/t possible dislodgement TECHNIQUE: One view of the chest was acquired. COMPARISON: 08/09/2020 FINDINGS: Surgical changes and devices: Right IJ central venous line has been retracted into the soft tissues o f the right neck. Lungs and pleura: No pleural effusions or pneumothorax. Lungs are clear. Mediastinum: Mediastinal contours appear normal. Heart size is normal. Bones and chest wall: No suspicious bony lesions. Overlying soft tissues appear unremarkable. IMPRESSION: 1. Right IJ central venous line is now in the soft tissues of the right neck. Advise repositioning. 2. No pneumothorax. Reviewed by: Guanakito Colunga MD on 08/10/2020 11:42 AM MARCOS Approved by: Guanakito Colunga MD on 08/10/2020 11:42 AM MARCOS Station ID: [id number]
--- NOTE | 2020-08-10 13:23 | ANESTHESIA PROCEDURE NOTE ---
Anesth Central Line Template - Central Line Central Line Preparation: Consent Obtained (from original placement), Time out completed, Ultrasound used, Sterile prep and drape Central line location: Right IJ Central line type: Triple lumen Central line catheter tip site resides: Superior vena cava (SVC) Central line aftercare: Secured, Placement confirmed, No pneumothorax, No complications, Bundle checklist complete, Pt tolerated well, Other Other Info/Details: Call to ICU for CVL that was inadvertently pulled. Cath removed with dressing after line mann sutures removed. New 20cm triple placed at R IJ, caps aspirate and flush, easily, x3. Secured with suture and tegaderm. Pt tolerated procedure without complaint, complication
--- NOTE | 2020-08-10 13:25 | XRAY Report ---
PROCEDURE: Chest for Line Placement INDICATIONS: Verify line placement TECHNIQUE: One view of the chest was acquired. COMPARISON: 08/10/2020 FINDINGS: Surgical changes and devices: Termination of a right internal jugular central venous catheter project s over the cavoatrial junction. Lungs and pleura: No pleural effusions or pneumothorax. Lungs are clear. Mediastinum: Mediastinal contours appear normal. Heart size is normal. Bones and chest wall: No suspicious bony lesions. Overlying soft tissues appear unremarkable. IMPRESSION: Right internal jugular catheter appears to terminate near the cavoatrial junction. Reviewed by: Daniel Hunt MD on 08/10/2020 1:24 PM PDT Approved by: Daniel Hunt MD on 08/10/2020 1:24 PM PDT Station ID: [id number]
--- NOTE | 2020-08-10 18:32 | PROVIDER PROGRESS NOTE ---
Subjective - Prog Note Date Prog Note Date: 08/10/20 Prog Note Time: 18:29 - Subjective Subjective: The patient continues to sleep. While he will wake up to just voice stimulation, he will answer appropriately, speech is lucid, but then fall right back asleep. Not awake long enough to eat or drink anything substantial. He says he does not have an appetite at all he wants is to drink water. He denies abdominal pain. There has been no vomiting. Vital signs of been stable throughout the day. He accidentally pulled out his central line rolling over in bed and a new central line had to be placed. Current Medications - Current Medications Current Medications: Active Medications Acetaminophen (Acetaminophen 325 Mg Tablet) 650 mg PO Q4HR PRN PRN Reason: Pain 1 to 4 Enoxaparin Sodium (Enoxaparin 40 Mg/0.4 Ml Syringe) 40 mg SUBQ DAILY [facility] Last Admin: 08/10/20 09:44 Dose: 40 mg Documented by: Fenofibrate (Fenofibrate 48 Mg Tablet) 134 mg PO DAILY [facility] Last Admin: 08/10/20 10:11 Dose: Not Given Documented by: Potassium Chloride/Sodium Chloride (Normal Saline 0.9% W/20 Meq Kcl) 1,000 mls @ 125 mls/hr IV .Q8H [facility] Last Admin: 08/10/20 13:29 Dose: Not Given Documented by: Potassium Chloride/Dextrose/Sod Cl (D5.45ns W/20 Meq Kcl) 1,000 mls @ 125 mls/hr IV .Q8H [facility] Last Admin: 08/10/20 17:30 Dose: 125 mls/hr Documented by: Insulin Human Regular 100 unit (/ Sodium Chloride) 100 mls @ 6.6 mls/hr IV .[id number] [facility]; Protocol Last Titration: 08/10/20 17:00 Dose: 0.08 unit/kg/hr, 5 mls/hr Documented by: Morphine Sulfate (Morphine 2 Mg/Ml Carpuject) 2 mg IVP Q2HR PRN PRN Reason: Pain 8 to 10 Ondansetron HCl (Ondansetron Odt 4 Mg Tablet) 4 mg TL Q6HR PRN PRN Reason: Nausea / Vomiting Ondansetron HCl (Ondansetron 4 Mg/2 Ml Vial) 4 mg IVP Q6HR PRN PRN Reason: Nausea / Vomiting Oxycodone HCl (Oxycodone 5 Mg Tablet) 5 mg PO Q4HR PRN PRN Reason: Pain 5 to 7 Sodium Chloride (Sodium Chloride Flush 0.9% 10 Ml Syringe) 10 ml IVP 0100,0900,1700 [facility] Last Admin: 08/10/20 18:26 Dose: 10 ml Documented by: Sodium Chloride (Sodium Chloride Flush 0.9% 10 Ml Syringe) 10 ml IVP PRN PRN PRN Reason: NEEDED PER PROVIDER ORDERS Last Admin: 08/10/20 10:14 Dose: 10 ml Documented by: Sodium Chloride (Sodium Chloride Flush 0.9% 10 Ml Syringe) 20 ml IVP PRN PRN PRN Reason: After Blood Draw Mirtazapine [Remeron] 15 mg PO DAILY 02/19/17 OLANZapine [Zyprexa] 10 mg PO DAILY PM 02/19/17 ARIPiprazole [Abilify] 5 mg PO DAILY 08/10/20 Objective - Vital Signs/Intake & Output Reviewed Vital Signs: Yes Vital Signs: Vital Signs x48h Temp Pulse Resp BP Pulse Ox 08/10/20 18:00 81 19 119/80 99 08/10/20 17:00 37.6 C 85 15 126/85 H 99 08/10/20 16:00 86 19 108/75 98 08/10/20 15:00 37.1 C 84 16 129/90 H 99 08/10/20 14:00 37.8 C 84 18 135/82 H 100 08/10/20 13:00 80 19 123/84 H 100 08/10/20 12:00 38.0 C H 89 15 145/91 H 99 08/10/20 11:00 82 16 131/86 H 99 Intake & Output: Intake & Output 08/07/20 08/08/20 08/09/20 08/10/20 23:59 23:59 23:59 23:59 Intake Total 0119.670 3375.550 Output Total 2300 5150 Balance 3633.670 -4653.450 - Objective General Appearance: positive: No acute distress, Lethargic, Other (Thin white male at 6 foot tall and 65.5 kg, appears cachectic) Eyes Bilateral: positive: PERRL ENT: positive: No signs of dehydration Neck: positive: No JVD. negative: Stiff neck Respiratory: positive: No respiratory distress. negative: Wheezes, Rales, Rhon chi Cardiovascular: positive: Regular rate & rhythm. negative: Systolic murmur, Gallop/S4, Friction rub Abdomen: positive: Non-tender, No organomegaly, Nml bowel sounds, No distention. negative: Guarding, Rebound Skin: positive: Warm, Dry. negative: Diaphoresis, Skin rash Extremities: positive: Non-tender, Full ROM, No pedal edema Neurologic/Psychiatric: positive: CN's nml (2-12), Motor nml (Will spontaneously reach for things, sheets, all done with eyes closed.) - Lab Results Fish Bones: 08/10/20 04:30 08/10/20 10:04 Other Labs: Lab Results x24hrs 08/10/20 08/10/20 08/10/20 Range/Units 10:04 04:30 04:30 WBC (4.8-10.8) x10^3/uL RBC (4.70-6.10) 10^6/uL Hgb (14.0-18.0) g/dL Hct (42.0-52.0) % MCV (80.0-94.0) fL MCH (27.0-31.0) pg MCHC (32.0-36.0) g/dL RDW (12.0-15.0) % Plt Count (130-450) 10^3/uL MPV (7.4-11.4) fL Neut # (Auto) Lymph # (Auto) [place] # (Auto) Eos # (Auto) Baso # (Auto) Absolute Nucleated RBC Total Counted Band Neuts % (Manual) (0 - 10) % Abnorm Lymph % (Manual) % Nucleated RBC % Neutrophils # (Manual) (1.5-6.6) 10^3/uL Lymphocytes # (Manual) (1.5-3.5) 10^3/uL Monocytes # (Manual) (0.0-1.0) 10^3/uL Eosinophils # (Manual) (0-0.7) 10^3/uL Basophils # (Manual) (0-0.1) 10^3/uL Differential Comment Platelet Estimate (NORMAL) RBC Morph Micro Appear (NORMAL) Sodium 134 L 135 (135-145) mmol/L Potassium 2.7 L 3.5 (3.5-5.0) mmol/L Chloride 112 H 113 H (101-111) mmol/L Carbon Dioxide 12 L* < 6 L* (21-32) mmol/L Anion Gap 10.0 TNP (6-13) BUN 11 12 (6-20) mg/dL Creatinine 0.9 1.1 (0.6-1.2) mg/dL Estimated GFR (MDRD) 97 77 L (>89) Glucose 186 H 207 H (70-100) mg/dL Estimat Average Glucose 364 H (70-100) mg/dL Hemoglobin A1c % 14.3 H (4.27-6.07) % Lactic Acid (0.5-2.2) mmol/L Calcium 9.1 9.2 (8.5-10.3) mg/dL Phosphorus < 1.0 L* (2.5-4.6) mg/dL Magnesium 1.8 1.9 (1.7-2.8) mg/dL Total Bilirubin 1.6 H (0.2-1.0) mg/dL Direct Bilirubin 0.1 (0.1-0.5) mg/dL AST 26 (10-42) IU/L ALT 20 (10-60) IU/L Alkaline Phosphatase 153 H (42-121) IU/L Troponin I High Sens (2.3-19.7) ng/L Total Protein 6.8 (6.7-8.2) g/dL Albumin 3.6 (3.2-5.5) g/dL Globulin 3.2 (2.1-4.2) g/dL Triglycerides ( - 149) mg/dL Cholesterol ( - 199) mg/dL LDL Cholesterol Direct ( - 129) mg/dL LDL Cholesterol, Calc VLDL Cholesterol HDL Cholesterol (60 - ) mg/dL LDL/HDL Ratio dLDL/HDL Ratio (<3.6) Cholesterol/HDL Ratio (<5.0) Amylase 292 H (28-100) U/L Lipase 213 H (22-51) U/L Nasal Adenovirus (PCR) Nasal B. parapertussis DNA (PCR) Nasal Coronavir 229E PCR Nasal Coronavir HKU1 PCR Nasal Coronavir NL63 PCR Nasal Coronavir OC43 PCR Nasal Enterovir/Rhinovir PCR Nasal Influenza B PCR Nasal Influenza A PCR Nasal Parainfluen 1 PCR Nasal Parainfluen 2 PCR Nasal Parainfluen 3 PCR Nasal Parainfluen 4 PCR Nasal RSV (PCR) Nasal Screen MRSA (PCR) (NEGATIVE) Nasal B.pertussis DNA PCR Nasal C.pneumoniae (PCR) Geoff Human Metapneumo PCR Nasal M.pneumoniae (PCR) Nasal SARS-CoV-2 (PCR) 08/10/20 08/10/20 08/09/20 Range/Units 04:30 01:45 22:00 WBC 20.3 H (4.8-10.8) x10^3/uL RBC 4.44 L (4.70-6.10) 10^6/uL Hgb 13.4 L (14.0-18.0) g/dL Hct 36.8 L (42.0-52.0) % MCV 82.9 (80.0-94.0) fL MCH 30.2 (27.0-31.0) pg MCHC 36.4 H (32.0-36.0) g/dL RDW 15.9 H (12.0-15.0) % Plt Count 246 (130-450) 10^3/uL MPV 9.0 (7.4-11.4) fL Neut # (Auto) Not Reportable Lymph # (Auto) Not Reportable [place] # (Auto) Not Reportable Eos # (Auto) Not Reportable Baso # (Auto) Not Reportable Absolute Nucleated RBC Not Reportable Total Counted 100 Band Neuts % (Manual) 28 H (0 - 10) % Abnorm Lymph % (Manual) 0 % Nucleated RBC % Not Reportable Neutrophils # (Manual) 19.1 H (1.5-6.6) 10^3/uL Lymphocytes # (Manual) 0.6 L (1.5-3.5) 10^3/uL Monocytes # (Manual) 0.6 (0.0-1.0) 10^3/uL Eosinophils # (Manual) 0.0 (0-0.7) 10^3/uL Basophils # (Manual) 0.0 (0-0.1) 10^3/uL Differential Comment MANUAL DIFFERENTIAL Platelet Estimate NORMAL (130-450,000) (NORMAL) RBC Morph Micro Appear NORMAL APPEARANCE (NORMAL) Sodium 135 132 L (135-145) mmol/L Potassium 2.7 L 3.6 (3.5-5.0) mmol/L Chloride 113 H 109 (101-111) mmol/L Carbon Dioxide 7 L* < 6 L* (21-32) mmol/L Anion Gap 15.0 H 17.0 H (6-13) BUN 13 14 (6-20) mg/dL Creatinine 1.1 1.1 (0.6-1.2) mg/dL Estimated GFR (MDRD) 77 L 77 L (>89) Glucose 121 H 299 H (70-100) mg/dL Estimat Average Glucose (70-100) mg/dL Hemoglobin A1c % (4.27-6.07) % Lactic Acid (0.5-2.2) mmol/L Calcium 9.1 7.8 L (8.5-10.3) mg/dL Phosphorus 2.9 (2.5-4.6) mg/dL Magnesium 1.9 2.0 (1.7-2.8) mg/dL Total Bilirubin (0.2-1.0) mg/dL Direct Bilirubin (0.1-0.5) mg/dL AST (10-42) IU/L ALT (10-60) IU/L Alkaline Phosphatase (42-121) IU/L Troponin I High Sens (2.3-19.7) ng/L Total Protein (6.7-8.2) g/dL Albumin (3.2-5.5) g/dL Globulin (2.1-4.2) g/dL Triglycerides ( - 149) mg/dL Cholesterol ( - 199) mg/dL LDL Cholesterol Direct ( - 129) mg/dL LDL Cholesterol, Calc VLDL Cholesterol HDL Cholesterol (60 - ) mg/dL LDL/HDL Ratio dLDL/HDL Ratio (<3.6) Cholesterol/HDL Ratio (<5.0) Amylase (28-100) U/L Lipase (22-51) U/L Nasal Adenovirus (PCR) Nasal B. parapertussis DNA (PCR) Nasal Coronavir 229E PCR Nasal Coronavir HKU1 PCR Nasal Coronavir NL63 PCR Nasal Coronavir OC43 PCR Nasal Enterovir/Rhinovir PCR Nasal Influenza B PCR Nasal Influenza A PCR Nasal Parainfluen 1 PCR Nasal Parainfluen 2 PCR Nasal Parainfluen 3 PCR Nasal Parainfluen 4 PCR Nasal RSV (PCR) Nasal Screen MRSA (PCR) (NEGATIVE) Nasal B.pertussis DNA PCR Nasal C.pneumoniae (PCR) Geoff Human Metapneumo PCR Nasal M.pneumoniae (PCR) Nasal SARS-CoV-2 (PCR) 08/09/20 08/09/20 08/09/20 Range/Units 20:25 20:05 19:01 WBC (4.8-10.8) x10^3/uL RBC (4.70-6.10) 10^6/uL Hgb (14.0-18.0) g/dL Hct (42.0-52.0) % MCV (80.0-94.0) fL MCH (27.0-31.0) pg MCHC (32.0-36.0) g/dL RDW (12.0-15.0) % Plt Count (130-450) 10^3/uL MPV (7.4-11.4) fL Neut # (Auto) Lymph # (Auto) [place] # (Auto) Eos # (Auto) Baso # (Auto) Absolute Nucleated RBC Total Counted Band Neuts % (Manual) (0 - 10) % Abnorm Lymph % (Manual) % Nucleated RBC % Neutrophils # (Manual) (1.5-6.6) 10^3/uL Lymphocytes # (Manual) (1.5-3.5) 10^3/uL Monocytes # (Manual) (0.0-1.0) 10^3/uL Eosinophils # (Manual) (0-0.7) 10^3/uL Basophils # (Manual) (0-0.1) 10^3/uL Differential Comment Platelet Estimate (NORMAL) RBC Morph Micro Appear (NORMAL) Sodium (135-145) mmol/L Potassium (3.5-5.0) mmol/L Chloride (101-111) mmol/L Carbon Dioxide (21-32) mmol/L Anion Gap (6-13) BUN (6-20) mg/dL Creatinine (0.6-1.2) mg/dL Estimated GFR (MDRD) (>89) Glucose (70-100) mg/dL Estimat Average Glucose (70-100) mg/dL Hemoglobin A1c % (4.27-6.07) % Lactic Acid 1.2 (0.5-2.2) mmol/L Calcium (8.5-10.3) mg/dL Phosphorus (2.5-4.6) mg/dL Magnesium (1.7-2.8) mg/dL Total Bilirubin (0.2-1.0) mg/dL Direct Bilirubin (0.1-0.5) mg/dL AST (10-42) IU/L ALT (10-60) IU/L Alkaline Phosphatase (42-121) IU/L Troponin I High Sens (2.3-19.7) ng/L Total Protein (6.7-8.2) g/dL Albumin (3.2-5.5) g/dL Globulin (2.1-4.2) g/dL Triglycerides ( - 149) mg/dL Cholesterol ( - 199) mg/dL LDL Cholesterol Direct ( - 129) mg/dL LDL Cholesterol, Calc VLDL Cholesterol HDL Cholesterol (60 - ) mg/dL LDL/HDL Ratio dLDL/HDL Ratio (<3.6) Cholesterol/HDL Ratio (<5.0) Amylase (28-100) U/L Lipase (22-51) U/L Nasal Adenovirus (PCR) NOT DETECTED Nasal B. parapertussis DNA (PCR) NOT DETECTED Nasal Coronavir 229E PCR NOT DETECTED Nasal Coronavir HKU1 PCR NOT DETECTED Nasal Coronavir NL63 PCR NOT DETECTED Nasal Coronavir OC43 PCR DETECTED A Nasal Enterovir/Rhinovir PCR NOT DETECTED Nasal Influenza B PCR NOT DETECTED Nasal Influenza A PCR NOT DETECTED Nasal Parainfluen 1 PCR NOT DETECTED Nasal Parainfluen 2 PCR NOT DETECTED Nasal Parainfluen 3 PCR NOT DETECTED Nasal Parainfluen 4 PCR NOT DETECTED Nasal RSV (PCR) NOT DETECTED Nasal Screen MRSA (PCR) NEGATIVE (NEGATIVE) Nasal B.pertussis DNA PCR NOT DETECTED Nasal C.pneumoniae (PCR) NOT DETECTED Geoff Human Metapneumo PCR NOT DETECTED Nasal M.pneumoniae (PCR) NOT DETECTED Nasal SARS-CoV-2 (PCR) NOT DETECTED 08/09/20 08/09/20 08/09/20 Range/Units 18:53 18:50 18:50 WBC (4.8-10.8) x10^3/uL RBC (4.70-6.10) 10^6/uL Hgb (14.0-18.0) g/dL Hct (42.0-52.0) % MCV (80.0-94.0) fL MCH (27.0-31.0) pg MCHC (32.0-36.0) g/dL RDW (12.0-15.0) % Plt Count (130-450) 10^3/uL MPV (7.4-11.4) fL Neut # (Auto) Lymph # (Auto) [place] # (Auto) Eos # (Auto) Baso # (Auto) Absolute Nucleated RBC Total Counted Band Neuts % (Manual) (0 - 10) % Abnorm Lymph % (Manual) % Nucleated RBC % Neutrophils # (Manual) (1.5-6.6) 10^3/uL Lymphocytes # (Manual) (1.5-3.5) 10^3/uL Monocytes # (Manual) (0.0-1.0) 10^3/uL Eosinophils # (Manual) (0-0.7) 10^3/uL Basophils # (Manual) (0-0.1) 10^3/uL Differential Comment Platelet Estimate (NORMAL) RBC Morph Micro Appear (NORMAL) Sodium (135-145) mmol/L Potassium (3.5-5.0) mmol/L Chloride (101-111) mmol/L Carbon Dioxide (21-32) mmol/L Anion Gap (6-13) BUN (6-20) mg/dL Creatinine (0.6-1.2) mg/dL Estimated GFR (MDRD) (>89) Glucose (70-100) mg/dL Estimat Average Glucose (70-100) mg/dL Hemoglobin A1c % (4.27-6.07) % Lactic Acid (0.5-2.2) mmol/L Calcium (8.5-10.3) mg/dL Phosphorus 4.1 (2.5-4.6) mg/dL Magnesium 2.1 (1.7-2.8) mg/dL Total Bilirubin (0.2-1.0) mg/dL Direct Bilirubin (0.1-0.5) mg/dL AST (10-42) IU/L ALT (10-60) IU/L Alkaline Phosphatase (42-121) IU/L Troponin I High Sens 15.3 (2.3-19.7) ng/L Total Protein (6.7-8.2) g/dL Albumin (3.2-5.5) g/dL Globulin (2.1-4.2) g/dL Triglycerides 692 H ( - 149) mg/dL Cholesterol 296 H ( - 199) mg/dL LDL Cholesterol Direct 138 H ( - 129) mg/dL LDL Cholesterol, Calc Not Reportable VLDL Cholesterol Not Reportable HDL Cholesterol 25 L (60 - ) mg/dL LDL/HDL Ratio Not Reportable dLDL/HDL Ratio 5.5 (<3.6) Cholesterol/HDL Ratio 11.8 (<5.0) Amylase (28-100) U/L Lipase (22-51) U/L Nasal Adenovirus (PCR) Nasal B. parapertussis DNA (PCR) Nasal Coronavir 229E PCR Nasal Coronavir HKU1 PCR Nasal Coronavir NL63 PCR Nasal Coronavir OC43 PCR Nasal Enterovir/Rhinovir PCR Nasal Influenza B PCR Nasal Influenza A PCR Nasal Parainfluen 1 PCR Nasal Parainfluen 2 PCR Nasal Parainfluen 3 PCR Nasal Parainfluen 4 PCR Nasal RSV (PCR) Nasal Screen MRSA (PCR) (NEGATIVE) Nasal B.pertussis DNA PCR Nasal C.pneumoniae (PCR) Geoff Human Metapneumo PCR Nasal M.pneumoniae (PCR) Nasal SARS-CoV-2 (PCR) 08/09/20 Range/Units 18:50 WBC (4.8-10.8) x10^3/uL RBC (4.70-6.10) 10^6/uL Hgb (14.0-18.0) g/dL Hct (42.0-52.0) % MCV (80.0-94.0) fL MCH (27.0-31.0) pg MCHC (32.0-36.0) g/dL RDW (12.0-15.0) % Plt Count (130-450) 10^3/uL MPV (7.4-11.4) fL Neut # (Auto) Lymph # (Auto) [place] # (Auto) Eos # (Auto) Baso # (Auto) Absolute Nucleated RBC Total Counted Band Neuts % (Manual) (0 - 10) % Abnorm Lymph % (Manual) % Nucleated RBC % Neutrophils # (Manual) (1.5-6.6) 10^3/uL Lymphocytes # (Manual) (1.5-3.5) 10^3/uL Monocytes # (Manual) (0.0-1.0) 10^3/uL Eosinophils # (Manual) (0-0.7) 10^3/uL Basophils # (Manual) (0-0.1) 10^3/uL Differential Comment Platelet Estimate (NORMAL) RBC Morph Micro Appear (NORMAL) Sodium 130 L (135-145) mmol/L Potassium 3.5 (3.5-5.0) mmol/L Chloride 101 (101-111) mmol/L Carbon Dioxide < 6 L* (21-32) mmol/L Anion Gap 23.0 H (6-13) BUN 12 (6-20) mg/dL Creatinine 1.4 H (0.6-1.2) mg/dL Estimated GFR (MDRD) 58 L (>89) Glucose 453 H (70-100) mg/dL Estimat Average Glucose (70-100) mg/dL Hemoglobin A1c % (4.27-6.07) % Lactic Acid (0.5-2.2) mmol/L Calcium 9.3 (8.5-10.3) mg/dL Phosphorus (2.5-4.6) mg/dL Magnesium (1.7-2.8) mg/dL Total Bilirubin (0.2-1.0) mg/dL Direct Bilirubin (0.1-0.5) mg/dL AST (10-42) IU/L ALT (10-60) IU/L Alkaline Phosphatase (42-121) IU/L Troponin I High Sens (2.3-19.7) ng/L Total Protein (6.7-8.2) g/dL Albumin (3.2-5.5) g/dL Globulin (2.1-4.2) g/dL Triglycerides ( - 149) mg/dL Cholesterol ( - 199) mg/dL LDL Cholesterol Direct ( - 129) mg/dL LDL Cholesterol, Calc VLDL Cholesterol HDL Cholesterol (60 - ) mg/dL LDL/HDL Ratio dLDL/HDL Ratio (<3.6) Cholesterol/HDL Ratio (<5.0) Amylase (28-100) U/L Lipase (22-51) U/L Nasal Adenovirus (PCR) Nasal B. parapertussis DNA (PCR) Nasal Coronavir 229E PCR Nasal Coronavir HKU1 PCR Nasal Coronavir NL63 PCR Nasal Coronavir OC43 PCR Nasal Enterovir/Rhinovir PCR Nasal Influenza B PCR Nasal Influenza A PCR Nasal Parainfluen 1 PCR Nasal Parainfluen 2 PCR Nasal Parainfluen 3 PCR Nasal Parainfluen 4 PCR Nasal RSV (PCR) Nasal Screen MRSA (PCR) (NEGATIVE) Nasal B.pertussis DNA PCR Nasal C.pneumoniae (PCR) Geoff Human Metapneumo PCR Nasal M.pneumoniae (PCR) Nasal SARS-CoV-2 (PCR) Assessment/Plan - Problem List (1) Viral pneumonia Impression: He is coronavirus positive with regards to common cold. In rare cases it can cause viral, atypical pneumonia. Treatment is mainly supportive. He is not hypoxic. Appears stable in spite of CT report. Plan: Continue supportive care (2) DKA (diabetic ketoacidoses) Impression: Over the course of the day his bicarb has improved from less than 6 and undetectable anion gap to 12 with an anion gap of 10. He is still on an insulin drip to keep his glucose under control. He is not waking up enough to eat.A1c is 14.3%. His describes weeks of fast breathing and not feeling well with weight loss. He may have had uncontrolled diabetes for quite some time. Plan: Continue to monitor glucose carefully, continue insulin drip until awake enough to eat. We will start diabetic education when he is more awake and aware Qualifiers: Diabetes mellitus complication detail: with coma Qualified Code(s): E08.11 - Diabetes mellitus due to underlying condition with ketoacidosis with coma (2) Encephalopathy Conclusion/Plan: His encephalopathy continues. CT of the head was unremarkable. Although he is responsive to voice and will wake up and respond appropriately, he goes right back to sleep. We will continue to aggressively hydrate, treat his diabetes, and hopefully he will wake up to be baseline. (3) Pancreatitis Conclusion/Plan: Abdomen pelvis CT shows scattered areas of patchy groundglass airspace opacity in both lower lobes as well as the right middle lobe and lingular segment of the left upper lobe. His solid organs show hepatic parenchyma consistent with hepatic steatosis. Dense focal fatty infiltration of the medial left hepatic lobe. Normal-sized liver. No hepatic masses. No intrahepatic or extrahepatic biliary duct dilatation. No pancreatic duct dilatation. Mild peripancreatic fat stranding. Plan is to continue his IV fluids, supportive care, and start to feed low-fat diet when he is more awake. (4) Acute kidney injury Conclusion/Plan: Resolving. Admission creatinine was 1.7 and he is 0.9 by late morning today. This is likely prerenal injury due to dehydration from his diabetic ketoacidosis and poorly controlled diabetes. His urinalysis did reveal RBC casts as well as occult blood. We will continue aggressive IV hydration and monitor his renal function and urine output. (5) Leukocytosis Conclusion/Plan: This is likely reactive. On admission had 15% bands noted and his white count is nearly 20,000. Today 20.3 this morning. 28% bands. His CT of the abdomen shows him to have viral pneumonia. But I would expect lymphocytosis not bandemia. I am still going to hold off on antibiotics and continue to monitor. Blood cultures were not completely obtained and those will be obtained today. (6) Hypokalemia Conclusion/Plan: He is being monitored closely. Continues to be hypokalemic at times and is receiving anywhere from 10 to 20 mEq via his central line.We will continue to m onitor every 4 hours and supplement as needed. (7) Hyponatremia Waxes and wanes. Conclusion/Plan: This is pseudohyponatremia secondary to the hyperglycemia. When corrected for hyperglycemia, his sodium is within normal limits. We will continue to monitor. (8) Marijuana abuse Conclusion/Plan: He does have a history of marijuana use but his tells me that he can quit for up to months at a time. His urine toxicology was positive for marijuana. We will discuss this further with the patient once he is able to participate in a conversation.Today he has not been able to do so. (9) Bipolar disorder Conclusion/Plan: We will need to discuss this further with the patient once he is able to participate in a conversation. We will need to discuss resuming his previous medications and ensuring he has appropriate follow-up. (10) Central line access complication The patient pulled a central line. I spoke to anesthesia who came to replace the line. Repeat chest x-ray is without pneumothorax and the patient can use the line. Qualifiers: Qualified Code(s): E08.11 - Diabetes mellitus due to underlying condition wit h ketoacidosis with coma
[2020-08-10 19:00] LABS: CALCIUM 9.4 mg/dL (8.5-10.3); CREATININE 0.8 mg/dL (0.6-1.2); POTASSIUM 2.6 mmol/L (3.5-5.0)
[2020-08-10 22:25] LABS: MAGNESIUM 1.8 mg/dL (1.7-2.8); POTASSIUM 3.4 mmol/L (3.5-5.0)
[2020-08-10] MEDS ORDERED: INSULIN REGULAR HUMAN 100 UNIT in SODIUM CHLORIDE 0.9% 100ML 99 ML IV SCH (23:00)
[2020-08-11] MEDS: D5.45NS W/20 MEQ KCL 1,000 ML IV SCH ×2 (00:05→02:05)
[2020-08-11] MEDS: POTASSIUM PHOSPHATE 15 MMOL in SODIUM CHLORIDE 0.9% 250 ML IV SCH (00:28)
[2020-08-11] MEDS: SODIUM CHLORIDE 0.9% 500 ML IV PRN (00:28)
[2020-08-11] MEDS: SODIUM CHLORIDE FLUSH 0.9% 10 ML SYRINGE IVP PRN ×2 (00:28→05:12)
[2020-08-11] MEDS ORDERED: POTASSIUM CHLOR 20 MEQ/100 ML 20 MEQ/100 ML BAG IV ONE ×3 (00:57→06:45)
[2020-08-11] MEDS: SODIUM CHLORIDE FLUSH 0.9% 10 ML SYRINGE IVP SCH ×3 (02:20→17:08)
[2020-08-11] MEDS: NS W/20 MEQ KCL 1,000 ML IV SCH ×3 (03:10→15:00)
[2020-08-11 05:26] LABS: BASOPHILS % (AUTO) 0.3 %; EOSINOPHILS % (AUTO) 0.1 %; HCT - HEMATOCRIT 30.8 % (42.0-52.0); HGB - HEMOGLOBIN 11.2 g/dL (14.0-18.0); LYMPHOCYTES % (AUTO) 9.2 %; MEAN CORPUSCULAR HEMOGLOBIN 30.2 pg (27.0-31.0); MEAN CORPUSCULAR HGB CONC 36.4 g/dL (32.0-36.0); MEAN PLATELET VOLUME 9.6 fL (7.4-11.4); MONOCYTES # (AUTO) 1.1 10^3/uL (0.0-1.0); MONOCYTES % (AUTO) 9.9 %; NEUTROPHILS # (AUTO) 8.8 10^3/uL (1.5-6.6); NEUTROPHILS % (AUTO) 80.1 %; PLT - PLATELET COUNT 207 10^3/uL (130-450); RED BLOOD COUNT 3.71 10^6/uL (4.70-6.10); RED CELL DISTRIBUTION WIDTH 16.9 % (12.0-15.0); WHITE BLOOD COUNT 10.9 x10^3/uL (4.8-10.8)
[2020-08-11 05:44] LABS: BILIRUBIN,DIRECT 0.1 mg/dL (0.1-0.5); BILIRUBIN,TOTAL 1.9 mg/dL (0.2-1.0); CALCIUM 8.9 mg/dL (8.5-10.3); MAGNESIUM 1.9 mg/dL (1.7-2.8); PHOSPHORUS 1.9 mg/dL (2.5-4.6); POTASSIUM 3.3 mmol/L (3.5-5.0); TOTAL PROTEIN 5.9 g/dL (6.7-8.2)
[2020-08-11 06:26] LABS: POTASSIUM 3.1 mmol/L (3.5-5.0)
[2020-08-11] MEDS ORDERED: POTASSIUM CHLORIDE 20 MEQ TABLET PO ONE ×2 (06:46→16:55)
[2020-08-11] MEDS ORDERED: NS W/20 MEQ KCL 1,000 ML IV SCH (07:00)
--- NOTE | 2020-08-11 07:26 | PROVIDER PROGRESS NOTE ---
Subjective - Prog Note Date Prog Note Date: 08/11/20 Prog Note Time: 07:23 - Subjective Subjective: His potassium needs agressive intervention for <2.5 at times. When that happens we have to stop his insulin drip and his glucose goes up. We had sucessfully been able to treat enough that C02 went from <6 to 12 and then 16 last night. With stopping insulin, his glucose went up to >200 and C02 was 10 this morning. He sleeps all day and night. He does wake up when we speak to him and touch him. he will answer our questions and then goes back to sleep. Vitals have been stable. No hypoxia. No fever. BP stable. He denies pain, discomfort. Has no appetite and prefers only to drink water. is at the bedside and has cajoled him into eating some food Current Medications - Current Medications Current Medications: Active Medications Acetaminophen (Acetaminophen 325 Mg Tablet) 650 mg PO Q4HR PRN PRN Reason: Pain 1 to 4 Last Admin: 08/11/20 07:30 Dose: 650 mg Documented by: Enoxaparin Sodium (Enoxaparin 40 Mg/0.4 Ml Syringe) 40 mg SUBQ DAILY [facility] Last Admin: 08/11/20 08:40 Dose: 40 mg Documented by: Fenofibrate (Fenofibrate 48 Mg Tablet) 134 mg PO DAILY [facility] Last Admin: 08/11/20 08:38 Dose: 134 mg Documented by: Potassium Chloride/Sodium Chloride (Normal Saline 0.9% W/20 Meq Kcl) 1,000 mls @ 125 mls/hr IV .Q8H JOSHUA Last Infusion: 08/11/20 16:00 Dose: 125 mls/hr Documented by: Sodium Chloride (Normal Saline 0.9%) 500 mls @ 20 mls/hr IV Q24H PRN PRN Reason: TKO RATE Last Infusion: 08/11/20 16:00 Dose: 20 mls/hr Documented by: Insulin Human Regular 100 unit (/ Sodium Chloride) 100 mls @ 1 mls/hr IV .Q72H ONE; Protocol Stop: 08/14/20 08:19 Last Titration: 08/11/20 16:00 Dose: 1.4 unit/hr, 1.4 mls/hr Documented by: Morphine Sulfate (Morphine 2 Mg/Ml Carpuject) 2 mg IVP Q2HR PRN PRN Reason: Pain 8 to 10 Ondansetron HCl (Ondansetron Odt 4 Mg Tablet) 4 mg TL Q6HR PRN PRN Reason: Nausea / Vomiting Ondansetron HCl (Ondansetron 4 Mg/2 Ml Vial) 4 mg IVP Q6HR PRN PRN Reason: Nausea / Vomiting Oxycodone HCl (Oxycodone 5 Mg Tablet) 5 mg PO Q4HR PRN PRN Reason: Pain 5 to 7 Polyethylene Glycol (Polyethylene Glycol 3350 17 Gm Packet) 17 gm PO DAILY [facility] Last Admin: 08/11/20 09:11 Dose: Not Given Documented by: Sodium Chloride (Sodium Chloride Flush 0.9% 10 Ml Syringe) 10 ml IVP 0100,0900,1700 [facility] Last Admin: 08/11/20 09:10 Dose: 10 ml Documented by: Sodium Chloride (Sodium Chloride Flush 0.9% 10 Ml Syringe) 10 ml IVP PRN PRN PRN Reason: NEEDED PER PROVIDER ORDERS Last Admin: 08/10/20 10:14 Dose: 10 ml Documented by: Sodium Chloride (Sodium Chloride Flush 0.9% 10 Ml Syringe) 20 ml IVP PRN PRN PRN Reason: After Blood Draw Last Admin: 08/11/20 05:12 Dose: 20 ml Documented by: Mirtazapine [Remeron] 15 mg PO DAILY 02/19/17 OLANZapine [Zyprexa] 10 mg PO DAILY PM 02/19/17 ARIPiprazole [Abilify] 5 mg PO DAILY 08/10/20 Objective - Vital Signs/Intake & Output Reviewed Vital Signs: Yes Vital Signs: Vital Signs x48h Temp Pulse Resp BP Pulse Ox 08/11/20 07:00 77 19 111/75 08/11/20 06:00 77 25 H 106/72 08/11/20 05:00 37.3 C 84 18 109/78 100 08/11/20 04:00 81 19 104/69 08/11/20 03:00 82 21 101/68 08/11/20 02:00 86 20 101/79 98 08/11/20 01:00 37.4 C 75 18 98/68 99 08/11/20 00:00 79 19 108/68 99 Intake & Output: Intake & Output 08/08/20 08/09/20 08/10/20 05/28/21 23:59 23:59 23:59 23:59 Intake Total 1029.670 2270.738 2091.657 Output Total 2300 6085 1300 Balance 2539.670 -1449.262 791.657 - Objective General Appearance: positive: No acute distress, Lethargic (Is much more easily today when I speak to him. Does not need a sternal rub to wake him up. Will speak in complete full sentences. But then go right back to sleep. He is already been on the phone to speak to his parents and has been speaking to his .) Eyes Bilateral: positive: PERRL ENT: positive: No signs of dehydration Neck: positive: No JVD. negative: Stiff neck Respiratory: positive: No respiratory distress. negative: Wheezes, Rales, R honchi Cardiovascular: positive: Regular rate & rhythm. negative: Gallop/S4, Friction rub Abdomen: positive: Non-tender, No organomegaly, Nml bowel sounds, No distention Skin: positive: Warm, Dry Extremities: positive: Full ROM, No pedal edema Neurologic/Psychiatric: positive: CN's nml (2-12), Motor nml - Lab Results Fish Bones: 08/11/20 05:00 08/11/20 10:53 Other Labs: Lab Results x24hrs 08/11/20 08/11/20 08/11/20 Range/Units 06:05 05:00 05:00 WBC 10.9 H (4.8-10.8) x10^3/uL RBC 3.71 L (4.70-6.10) 10^6/uL Hgb 11.2 L (14.0-18.0) g/dL Hct 30.8 L (42.0-52.0) % MCV 83.0 (80.0-94.0) fL MCH 30.2 (27.0-31.0) pg MCHC 36.4 H (32.0-36.0) g/dL RDW 16.9 H (12.0-15.0) % Plt Count 207 (130-450) 10^3/uL MPV 9.6 (7.4-11.4) fL Neut # (Auto) 8.8 H (1.5-6.6) 10^3/uL Lymph # (Auto) 1.0 L (1.5-3.5) 10^3/uL Jewell # (Auto) 1.1 H (0.0-1.0) 10^3/uL Eos # (Auto) 0.0 (0.0-0.7) 10^3/uL Baso # (Auto) 0.0 (0.0-0.1) 10^3/uL Absolute Nucleated RBC 0.00 x10^3/uL Nucleated RBC % 0.0 /100WBC Sodium 132 L 134 L (135-145) mmol/L Potassium 3.1 L 3.3 L (3.5-5.0) mmol/L Chloride 107 108 (101-111) mmol/L Carbon Dioxide 10 L* 10 L* (21-32) mmol/L Anion Gap 15.0 H 16.0 H (6-13) BUN 11 11 (6-20) mg/dL Creatinine 1.0 1.0 (0.6-1.2) mg/dL Estimated GFR (MDRD) 86 L 86 L (>89) Glucose 295 H 295 H (70-100) mg/dL Estimat Average Glucose (70-100) mg/dL Hemoglobin A1c % (4.27-6.07) % Calcium 9.0 8.9 (8.5-10.3) mg/dL Phosphorus 1.9 L (2.5-4.6) mg/dL Magnesium 1.9 (1.7-2.8) mg/dL Total Bilirubin 1.9 H (0.2-1.0) mg/dL Direct Bilirubin 0.1 (0.1-0.5) mg/dL AST 18 (10-42) IU/L ALT 16 (10-60) IU/L Alkaline Phosphatase 115 (42-121) IU/L Total Protein 5.9 L (6.7-8.2) g/dL Albumin 3.0 L (3.2-5.5) g/dL Globulin 2.9 (2.1-4.2) g/dL 08/11/20 08/10/20 08/10/20 Range/Units 00:30 22:00 18:35 WBC (4.8-10.8) x10^3/uL RBC (4.70-6.10) 10^6/uL Hgb (14.0-18.0) g/dL Hct (42.0-52.0) % MCV (80.0-94.0) fL MCH (27.0-31.0) pg MCHC (32.0-36.0) g/dL RDW (12.0-15.0) % Plt Count (130-450) 10^3/uL MPV (7.4-11.4) fL Neut # (Auto) (1.5-6.6) 10^3/uL Lymph # (Auto) (1.5-3.5) 10^3/uL Jewell # (Auto) (0.0-1.0) 10^3/uL Eos # (Auto) (0.0-0.7) 10^3/uL Baso # (Auto) (0.0-0.1) 10^3/uL Absolute Nucleated RBC x10^3/uL Nucleated RBC % /100WBC Sodium (135-145) mmol/L Potassium 3.2 L 3.4 L (3.5-5.0) mmol/L Chloride (101-111) mmol/L Carbon Dioxide (21-32) mmol/L Anion Gap (6-13) BUN (6-20) mg/dL Creatinine (0.6-1.2) mg/dL Estimated GFR (MDRD) (>89) Glucose (70-100) mg/dL Estimat Average Glucose (70-100) mg/dL Hemoglobin A1c % (4.27-6.07) % Calcium (8.5-10.3) mg/dL Phosphorus < 1.0 L* (2.5-4.6) mg/dL Magnesium 1.8 (1.7-2.8) mg/dL Total Bilirubin (0.2-1.0) mg/dL Direct Bilirubin (0.1-0.5) mg/dL AST (10-42) IU/L ALT (10-60) IU/L Alkaline Phosphatase (42-121) IU/L Total Protein (6.7-8.2) g/dL Albumin (3.2-5.5) g/dL Globulin (2.1-4.2) g/dL 08/10/20 08/10/20 08/10/20 Range/Units 18:35 10:04 04:30 WBC (4.8-10.8) x10^3/uL RBC (4.70-6.10) 10^6/uL Hgb (14.0-18.0) g/dL Hct (42.0-52.0) % MCV (80.0-94.0) fL MCH (27.0-31.0) pg MCHC (32.0-36.0) g/dL RDW (12.0-15.0) % Plt Count (130-450) 10^3/uL MPV (7.4-11.4) fL Neut # (Auto) (1.5-6.6) 10^3/uL Lymph # (Auto) (1.5-3.5) 10^3/uL Jewell # (Auto) (0.0-1.0) 10^3/uL Eos # (Auto) (0.0-0.7) 10^3/uL Baso # (Auto) (0.0-0.1) 10^3/uL Absolute Nucleated RBC x10^3/uL Nucleated RBC % /100WBC Sodium 136 134 L (135-145) mmol/L Potassium 2.6 L 2.7 L (3.5-5.0) mmol/L Chloride 112 H 112 H (101-111) mmol/L Carbon Dioxide 16 L 12 L* (21-32) mmol/L Anion Gap 8.0 10.0 (6-13) BUN 11 11 (6-20) mg/dL Creatinine 0.8 0.9 (0.6-1.2) mg/dL Estimated GFR (MDRD) 111 97 (>89) Glucose 95 186 H (70-100) mg/dL Estimat Average Glucose 364 H (70-100) mg/dL Hemoglobin A1c % 14.3 H (4.27-6.07) % Calcium 9.4 9.1 (8.5-10.3) mg/dL Phosphorus (2.5-4.6) mg/dL Magnesium 1.8 (1.7-2.8) mg/dL Total Bilirubin (0.2-1.0) mg/dL Direct Bilirubin (0.1-0.5) mg/dL AST (10-42) IU/L ALT (10-60) IU/L Alkaline Phosphatase (42-121) IU/L Total Protein (6.7-8.2) g/dL Albumin (3.2-5.5) g/dL Globulin (2.1-4.2) g/dL ABX Reporting Has patient been on IV antibiotics over the past 48 hours?: No Assessment/Plan - Problem List (1) Viral pneumonia Impression: He is coronavirus positive with regards to common cold. In rare cases it can cause viral, atypical pneumonia. Treatment is mainly supportive. He is not hypoxic. Appears stable in spite of CT report. Plan: Continue supportive care (2) DKA (diabetic ketoacidoses)With electrolyte disturbance of low phosphorus, low potassium Impression: Over the course of the day his bicarb has improved from less than 6 and undetectable anion gap to 12 with an anion gap of 10. He is still on an insulin drip to keep his glucose under control. He is not waking up enough to eat.A1c is 14.3%. His describes weeks of fast breathing and not feeling well with weight loss. He may have had uncontrolled diabetes for quite some time. A1c is 14.3%. relates a story of fast breathing and appetite changes for over a month now. But because he was in [place] for so long, she could not tell us what he did in [place]. He continues to have low phosphorus, low potassium and we will stop the insulin drip when his potassium gets too low. Supplement the potassium and then resume the drip. Even at 0.7 units/h, his glucose started to climb back into the 150s so he is down 1.4 units/h.His carbon dioxide had improved yesterday evening. But then we had to stop the insulin drip for the potassium and his carbon dioxide went back down to 10. Today he has been 16 again. Plan: Continue insulin drip until he is awake enough to eat and then I can transition him to Lantus and short acting insulin. Change IV phosphorus to Neutra-Phos Qualifiers: Diabetes mellitus complication detail: with coma Qualified Code(s): E08.11 - Diabetes mellitus due to underlying condition with ketoacidosis with coma (2) Encephalopathy Conclusion/Plan: His encephalopathy Has improved somewhat today. He still sleeps most of the day but is more responsive, more lucid today than he has been since he was admitted. CT of the head was unremarkable. Although he is responsive to voice and will wake up and respond appropriately, he goes right back to sleep. We will continue to aggressively hydrate, treat his diabetes, and hopefully he will wake up to be baseline. (3) Pancreatitis Conclusion/Plan: Abdomen pelvis CT shows scattered areas of patchy groundglass airspace opacity in both lower lobes as well as the right middle lobe and lingular segment of the left upper lobe. His solid organs show hepatic parenchyma consistent with hepatic steatosis. Dense focal fatty infiltration of the medial left hepatic lobe. Normal-sized liver. No hepatic masses. No intrahepatic or extrahepatic biliary duct dilatation. No pancreatic duct dilatation. Mild peripancreatic fat stranding. Plan is to continue his IV fluids, supportive care, and start to feed low-fat diet when he is more awake. (4) Acute kidney injury Conclusion/Plan: Resolving. Admission creatinine was 1.7 and he is 0.9 by late morning Yesterday. Today he is 0.8. This is likely prerenal injury due to dehydration from his diabetic ketoacidosis and poorly controlled diabetes. His urinalysis did reveal RBC casts as well as occult blood. We will continue aggressive IV hydration and monitor his renal function and urine output. (5) Leukocytosis Conclusion/Plan: This is likely reactive. On admission had 15% bands noted and his white count was nearly 20,000>>20.3>[address] . His CT of the abdomen shows him to have viral pneumonia. But I would expect lymphocytosis not bandemia. I am still going to hold off on antibiotics and continue to monitor. 1 set of blood cultures from the is negative. With the improvement today I will continue to hold off on antibiotics (6) Hypokalemia Conclusion/Plan: He is being monitored closely. Continues to be hypokalemic at times and is receiving anywhere from 10 to 20 mEq via his central line.We will continue to monitor every 4 hours and supplement as needed. (7) Hyponatremia Waxes and wanes. Conclusion/Plan: This is pseudohyponatremia secondary to the hyperglycemia. When corrected for hyperglycemia, his sodium is within normal limits. We will continue to monitor. (8) Marijuana abuse Conclusion/Plan: He does have a history of marijuana use but his tells me that he can quit for up to months at a time. His urine toxicology was positive for marijuana. We will discuss this further with the patient once he is able to participate in a conversation.Today he has not been able to do so. (9) Bipolar disorder Conclusion/Plan: We will need to discuss this further with the patient once he is able to participate in a conversation. We will need to discuss resuming his previous medications and ensuring he has appropriate follow-up. (10) Central line access complication The patient pulled a central vin 08/10. I spoke to anesthesia who came to replace the line. Repeat chest x-ray was without pneumothorax and the patient can use the line. (2) DKA (diabetic ketoacidoses) Qualifiers: Qualified Code(s): E08.11 - Diabetes mellitus due to underlying condition with ketoacidosis with coma
[2020-08-11] MEDS: ACETAMINOPHEN 325 MG TABLET PO PRN (07:30)
[2020-08-11] MEDS: POTASSIUM CHLOR 20 MEQ/100 ML 20 MEQ/100 ML BAG IV SCH ×8 (07:32→22:16)
[2020-08-11] MEDS ORDERED: POTASSIUM PHOSPHATE 15 MMOL in SODIUM CHLORIDE 0.9% 250 ML IV ONE (08:00)
[2020-08-11] MEDS ORDERED: SODIUM PHOSPHATE 15 MMOL in SODIUM CHLORIDE 0.9% 250 ML IV ONE (08:20)
[2020-08-11] MEDS ORDERED: INSULIN REGULAR HUMAN 100 UNIT in SODIUM CHLORIDE 0.9% 100ML 99 ML IV ONE (08:20)
[2020-08-11] MEDS: FENOFIBRATE 48 MG TABLET PO SCH (08:38)
[2020-08-11] MEDS: ENOXAPARIN 40 MG/0.4 ML SYRINGE SUBQ SCH (08:40)
[2020-08-11] MEDS: polyethylene glycoL 3350 17 GM PACKET PO SCH (09:11)
[2020-08-11 11:20] LABS: CALCIUM 8.9 mg/dL (8.5-10.3); CREATININE 0.8 mg/dL (0.6-1.2); POTASSIUM 3.1 mmol/L (3.5-5.0)
--- NOTE | 2020-08-11 12:37 | PHARMACY PROGRESS NOTE ---
- Best Possible Medication History Admit Date and Time: 08/09/201931 Processed by: Pharmacy Medication History completed: Yes Patient Interview: Completed Secondary Source(s): Physician records, Insurance records (PATIENT REPORTS HE HAS NOT TAKEN HIS MEDS FOR A FEW MONTHS ) As the person ultimately responsible for medication therapy, providers are able to order a medication from an existing home medication list in [facility] via the "Reconcile Routine" prior to Confirmation of that medication by instructional support technician. Such practice is discouraged except when the physician, in their clinical judgment, deems that a medical need exists for a medication without regard to previous use.
[2020-08-11 16:49] LABS: CALCIUM 8.2 mg/dL (8.5-10.3); CREATININE 0.7 mg/dL (0.6-1.2)
[2020-08-11] MEDS: NEUTRA-PHOS 250 MG TABLET PO SCH (17:14)
[2020-08-11 18:51] LABS: CALCIUM 8.3 mg/dL (8.5-10.3); CREATININE 0.7 mg/dL (0.6-1.2); POTASSIUM 2.7 mmol/L (3.5-5.0)
[2020-08-12] MEDS ORDERED: POTASSIUM CHLOR 20 MEQ/100 ML 20 MEQ/100 ML BAG IV ONE ×2 (00:34)
[2020-08-12] MEDS: POTASSIUM CHLORIDE 20 MEQ TABLET PO ONE ×2 (02:10→02:11)
[2020-08-12] MEDS: SODIUM CHLORIDE FLUSH 0.9% 10 ML SYRINGE IVP SCH ×3 (03:38→17:54)
[2020-08-12 04:56] LABS: BASOPHILS % (AUTO) 0.3 %; EOSINOPHILS % (AUTO) 0.6 %; HCT - HEMATOCRIT 29.7 % (42.0-52.0); HGB - HEMOGLOBIN 10.9 g/dL (14.0-18.0); LYMPHOCYTES # (AUTO) 1.2 10^3/uL (1.5-3.5); LYMPHOCYTES % (AUTO) 16.6 %; MEAN CORPUSCULAR HEMOGLOBIN 30.4 pg (27.0-31.0); MEAN CORPUSCULAR HGB CONC 36.7 g/dL (32.0-36.0); MEAN PLATELET VOLUME 9.4 fL (7.4-11.4); MONOCYTES # (AUTO) 0.7 10^3/uL (0.0-1.0); MONOCYTES % (AUTO) 10.2 %; NEUTROPHILS # (AUTO) 5.1 10^3/uL (1.5-6.6); NEUTROPHILS % (AUTO) 71.9 %; PLT - PLATELET COUNT 187 10^3/uL (130-450); RED BLOOD COUNT 3.58 10^6/uL (4.70-6.10); RED CELL DISTRIBUTION WIDTH 16.8 % (12.0-15.0); WHITE BLOOD COUNT 7.1 x10^3/uL (4.8-10.8)
[2020-08-12 05:11] LABS: ALBUMIN 2.8 g/dL (3.2-5.5); BILIRUBIN,DIRECT 0.2 mg/dL (0.1-0.5); BILIRUBIN,TOTAL 1.6 mg/dL (0.2-1.0); CALCIUM 8.6 mg/dL (8.5-10.3); CREATININE 0.8 mg/dL (0.6-1.2); MAGNESIUM 1.7 mg/dL (1.7-2.8); PHOSPHORUS 1.3 mg/dL (2.5-4.6); POTASSIUM 3.6 mmol/L (3.5-5.0); TOTAL PROTEIN 5.6 g/dL (6.7-8.2)
[2020-08-12] MEDS ORDERED: POTASSIUM PHOSPHATE 21 MMOL in SODIUM CHLORIDE 0.9% 250 ML IV ONE (08:00)
[2020-08-12] MEDS: INSULIN GLARGINE 300 UNIT/3 ML PEN SUBQ SCH (08:05)
[2020-08-12] MEDS: INSULIN ASPART 300 UNIT/3 ML PEN SUBQ SCH ×5 (08:12→21:02)
[2020-08-12] MEDS: NEUTRA-PHOS 250 MG TABLET PO SCH ×3 (08:17→16:58)
[2020-08-12] MEDS: FENOFIBRATE 48 MG TABLET PO SCH (08:58)
[2020-08-12] MEDS: ENOXAPARIN 40 MG/0.4 ML SYRINGE SUBQ SCH (09:00)
[2020-08-12] MEDS: polyethylene glycoL 3350 17 GM PACKET PO SCH (09:01)
--- NOTE | 2020-08-12 12:29 | PROVIDER PROGRESS NOTE ---
Subjective - Prog Note Date Prog Note Date: 08/12/20 Prog Note Time: 12:29 - Subjective Pt reports feeling: Improved Subjective: He is sitting up in a chair, conversing lucidly and extensively for the first time since have seen him. While he has been appropriate and answers questions before, he would immediately fall back asleep. This is the first time I have seen him upright in the chair, talking to the nurse, speaking to me and not falling back asleep. He is also hungry. He is looking forward to lunch and wants a [employer] sandwich. He denies any significant pain. Right now he seems tired, and frowns a little bit as I go over his treatment plan and data. It may be overwhelming for him right now since this is the first time he has been awake and alert enough to converse with us. Insulin drip was stopped yesterday. This morning he is getting Lantus and sliding scale insulin. Current Medications - Current Medications Current Medications: Active Medications Acetaminophen (Acetaminophen 325 Mg Tablet) 650 mg PO Q4HR PRN PRN Reason: Pain 1 to 4 Last Admin: 08/11/20 07:30 Dose: 650 mg Documented by: Enoxaparin Sodium (Enoxaparin 40 Mg/0.4 Ml Syringe) 40 mg SUBQ DAILY JOSHUA Last Admin: 08/12/20 09:00 Dose: Not Given Documented by: Fenofibrate (Fenofibrate 48 Mg Tablet) 144 mg PO DAILY JOSHUA Last Admin: 08/12/20 08:58 Dose: 144 mg Documented by: Potassium Chloride/Sodium Chloride (Normal Saline 0.9% W/20 Meq Kcl) 1,000 mls @ 125 mls/hr IV .Q8H JOSHUA Last Infusion: 08/12/20 00:50 Dose: Infused Documented by: Sodium Chloride (Normal Saline 0.9%) 500 mls @ 20 mls/hr IV Q24H PRN PRN Reason: TKO RATE Last Infusion: 08/11/20 19:00 Dose: 20 mls/hr Documented by: Potassium Phosphate 21 mmol/ (Sodium Chloride) 257 mls @ 42.833 mls/hr IV ONCE ONE Stop: 08/12/20 13:59 Last Admin: 08/12/20 08:02 Dose: 64 mls/hr Documented by: Insulin Aspart (Insulin Aspart 300 Unit/3 Ml Pen) 1 - 9 unit SUBQ 0800,1200,1700,2100 [facility]; Protocol Last Admin: 08/12/20 11:48 Dose: 5 unit Documented by: Insulin Glargine (Insulin Glargine 300 Unit/3 Ml Pen) 5 unit SUBQ QDBREAKFAST [facility] Last Admin: 08/12/20 08:05 Dose: 5 unit Documented by: Insulin Glargine (Insulin Glargine 300 Unit/3 Ml Pen) 10 unit SUBQ QPM [facility] Morphine Sulfate (Morphine 2 Mg/Ml Carpuject) 2 mg IVP Q2HR PRN PRN Reason: Pain 8 to 10 Ondansetron HCl (Ondansetron Odt 4 Mg Tablet) 4 mg TL Q6HR PRN PRN Reason: Nausea / Vomiting Ondansetron HCl (Ondansetron 4 Mg/2 Ml Vial) 4 mg IVP Q6HR PRN PRN Reason: Nausea / Vomiting Oxycodone HCl (Oxycodone 5 Mg Tablet) 5 mg PO Q4HR PRN PRN Reason: Pain 5 to 7 Polyethylene Glycol (Polyethylene Glycol 3350 17 Gm Packet) 17 gm PO DAILY [facility] Last Admin: 08/12/20 09:01 Dose: Not Given Documented by: Sodium Chloride (Sodium Chloride Flush 0.9% 10 Ml Syringe) 10 ml IVP 0100,0900,1700 [facility] Last Admin: 08/12/20 03:38 Dose: 10 ml Documented by: Sodium Chloride (Sodium Chloride Flush 0.9% 10 Ml Syringe) 10 ml IVP PRN PRN PRN Reason: NEEDED PER PROVIDER ORDERS Last Admin: 08/10/20 10:14 Dose: 10 ml Documented by: Sodium Chloride (Sodium Chloride Flush 0.9% 10 Ml Syringe) 20 ml IVP PRN PRN PRN Reason: After Blood Draw Last Admin: 08/11/20 05:12 Dose: 20 ml Documented by: Sodium Phosphate (Neutra-Phos 250 Mg Tablet) 250 mg PO TIDWM [facility] Last Admin: 08/12/20 12:08 Dose: 250 mg Documented by: Mirtazapine [Remeron] 15 mg PO DAILY 02/19/17 OLANZapine [Zyprexa] 10 mg PO DAILY PM 02/19/17 ARIPiprazole [Abilify] 5 mg PO DAILY 08/10/20 Objective - Vital Signs/Intake & Output Reviewed Vital Signs: Yes Vital Signs: Vital Signs x48h Temp Pulse Resp Resp BP Pulse Ox 08/12/20 11:30 15 08/12/20 08:00 36.6 C 84 18 97 08/12/20 06:00 36.6 C 69 13 103/69 99 Intake & Output: Intake & Output 08/09/20 08/10/20 08/11/20 08/12/20 23:59 23:59 23:59 23:59 Intake Total 4839.670 4600.830 6266.088 2415 Output Total 2300 6050 4050 3250 Balance 2539.670 -6576.790 7624.088 -835 - Objective General Appearance: positive: No acute distress, Alert, Other (6 foot inch 69 kg white male. Moderately decreased muscle mass, bitemporal wasting, generalized weakness.) Eyes Bilateral: positive: PERRL, EOMI ENT: positive: No signs of dehydration Neck: positive: No JVD. negative: Stiff neck Respiratory: positive: No respiratory distress. negative: Wheezes, Rales, Rhonchi Cardiovascular: positive: Regular rate & rhythm. negative: Gallop/S4, Friction rub Abdomen: positive: Non-tender, No organomegaly, Nml bowel sounds, No distention Skin: positive: Warm, Dry Extremities: positive: Full ROM, No pedal edema Neurologic/Psychiatric: positive: Oriented x3, CN's nml (2-12), Motor nml, Weakness (Generalized.) - Lab Results Fish Bones: 08/12/20 04:40 08/12/20 12:20 Other Labs: Lab Results x24hrs 08/12/20 08/12/20 08/12/20 Range/Units 04:40 04:40 00:10 WBC 7.1 (4.8-10.8) x10^3/uL RBC 3.58 L (4.70-6.10) 10^6/uL Hgb 10.9 L (14.0-18.0) g/dL Hct 29.7 L (42.0-52.0) % MCV 83.0 (80.0-94.0) fL MCH 30.4 (27.0-31.0) pg MCHC 36.7 H (32.0-36.0) g/dL RDW 16.8 H (12.0-15.0) % Plt Count 187 (130-450) 10^3/uL MPV 9.4 (7.4-11.4) fL Neut # (Auto) 5.1 (1.5-6.6) 10^3/uL Lymph # (Auto) 1.2 L (1.5-3.5) 10^3/uL [place] # (Auto) 0.7 (0.0-1.0) 10^3/uL Eos # (Auto) 0.0 (0.0-0.7) 10^3/uL Baso # (Auto) 0.0 (0.0-0.1) 10^3/uL Absolute Nucleated RBC 0.00 x10^3/uL Nucleated RBC % 0.0 /100WBC Sodium 132 L (135-145) mmol/L Potassium 3.6 3.1 L (3.5-5.0) mmol/L Chloride 103 (101-111) mmol/L Carbon Dioxide 18 L (21-32) mmol/L Anion Gap 11.0 (6-13) BUN 9 (6-20) mg/dL Creatinine 0.8 (0.6-1.2) mg/dL Estimated GFR (MDRD) 111 (>89) Glucose 234 H (70-100) mg/dL Calcium 8.6 (8.5-10.3) mg/dL Phosphorus 1.3 L (2.5-4.6) mg/dL Magnesium 1.7 (1.7-2.8) mg/dL Total Bilirubin 1.6 H (0.2-1.0) mg/dL Direct Bilirubin 0.2 (0.1-0.5) mg/dL AST 15 (10-42) IU/L ALT 14 (10-60) IU/L Alkaline Phosphatase 101 (42-121) IU/L Total Protein 5.6 L (6.7-8.2) g/dL Albumin 2.8 L (3.2-5.5) g/dL Globulin 2.8 (2.1-4.2) g/dL Thyroxine (T4) (6.09-12.23) ug/dL 08/11/20 08/11/20 08/11/20 Range/Units 18:30 18:30 18:30 WBC (4.8-10.8) x10^3/uL RBC (4.70-6.10) 10^6/uL Hgb (14.0-18.0) g/dL Hct (42.0-52.0) % MCV (80.0-94.0) fL MCH (27.0-31.0) pg MCHC (32.0-36.0) g/dL RDW (12.0-15.0) % Plt Count (130-450) 10^3/uL MPV (7.4-11.4) fL Neut # (Auto) (1.5-6.6) 10^3/uL Lymph # (Auto) (1.5-3.5) 10^3/uL [place] # (Auto) (0.0-1.0) 10^3/uL Eos # (Auto) (0.0-0.7) 10^3/uL Baso # (Auto) (0.0-0.1) 10^3/uL Absolute Nucleated RBC x10^3/uL Nucleated RBC % /100WBC Sodium 133 L (135-145) mmol/L Potassium 2.7 L (3.5-5.0) mmol/L Chloride 108 (101-111) mmol/L Carbon Dioxide 18 L (21-32) mmol/L Anion Gap 7.0 (6-13) BUN 9 (6-20) mg/dL Creatinine 0.7 (0.6-1.2) mg/dL Estimated GFR (MDRD) 129 (>89) Glucose 209 H (70-100) mg/dL Calcium 8.3 L (8.5-10.3) mg/dL Phosphorus 1.4 L (2.5-4.6) mg/dL Magnesium (1.7-2.8) mg/dL Total Bilirubin (0.2-1.0) mg/dL Direct Bilirubin (0.1-0.5) mg/dL AST (10-42) IU/L ALT (10-60) IU/L Alkaline Phosphatase (42-121) IU/L Total Protein (6.7-8.2) g/dL Albumin (3.2-5.5) g/dL Globulin (2.1-4.2) g/dL Thyroxine (T4) 4.04 L (6.09-12.23) ug/dL 08/11/20 Range/Units 16:36 WBC (4.8-10.8) x10^3/uL RBC (4.70-6.10) 10^6/uL Hgb (14.0-18.0) g/dL Hct (42.0-52.0) % MCV (80.0-94.0) fL MCH (27.0-31.0) pg MCHC (32.0-36.0) g/dL RDW (12.0-15.0) % Plt Count (130-450) 10^3/uL MPV (7.4-11.4) fL Neut # (Auto) (1.5-6.6) 10^3/uL Lymph # (Auto) (1.5-3.5) 10^3/uL [place] # (Auto) (0.0-1.0) 10^3/uL Eos # (Auto) (0.0-0.7) 10^3/uL Baso # (Auto) (0.0-0.1) 10^3/uL Absolute Nucleated RBC x10^3/uL Nucleated RBC % /100WBC Sodium 133 L (135-145) mmol/L Potassium 3.0 L (3.5-5.0) mmol/L Chloride 109 (101-111) mmol/L Carbon Dioxide 16 L (21-32) mmol/L Anion Gap 8.0 (6-13) BUN 10 (6-20) mg/dL Creatinine 0.7 (0.6-1.2) mg/dL Estimated GFR (MDRD) 129 (>89) Glucose 163 H (70-100) mg/dL Calcium 8.2 L (8.5-10.3) mg/dL Phosphorus (2.5-4.6) mg/dL Magnesium (1.7-2.8) mg/dL Total Bilirubin (0.2-1.0) mg/dL Direct Bilirubin (0.1-0.5) mg/dL AST (10-42) IU/L ALT (10-60) IU/L Alkaline Phosphatase (42-121) IU/L Total Protein (6.7-8.2) g/dL Albumin (3.2-5.5) g/dL Globulin (2.1-4.2) g/dL Thyroxine (T4) (6.09-12.23) ug/dL ABX Reporting Has patient been on IV antibiotics over the past 48 hours?: No Assessment/Plan - Problem List (1) Viral pneumonia Impression: He is coronavirus positive with regards to common cold. In rare cases it can cause viral, atypical pneumonia. Treatment continues to be supportive care. No specific antiviral treatment. No hypoxia. White cell count is normal today. He came in at 19.9, then 20.3, then 10.9 and today 7.1. Plan: Continue supportive care (2) DKA (diabetic ketoacidoses)With electrolyte disturbance of low phosphorus, low potassium Impression: For the first 48 to 72 hours this gentleman's bicarb was less than 6 and so undetectable anion gap was unable to be calculated. We have waxed and waned with her ability to control that, he has required a tremendous amount of potassium and phosphorus supplementation. Insulin drip was started then stopped depending on his potassium. This morning his carbon dioxide is now 18 and consistently staying up. Potassium is 3.6. Glucose is 234 as I stopped his insulin drip. Hopefully he is turned the corner. We will continue to watch carbon dioxide levels. Plan: Lantus 5 units this morning, 10 units tonight. Moderate dose sliding scale. Continue to supplement after monitoring of potassium and phosphorus Qualifiers: Diabetes mellitus complication detail: with coma Qualified Code(s): E08.11 - Diabetes mellitus due to underlying condition with ketoacidosis with coma (2) Encephalopathy resolved. Conclusion/Plan: He Appears to be at baseline today. He was sleeping throughout the day for the last few days. Now he is up in chair, getting ready to eat a good lunch. Speech is lucid, appropriate. Does not remember a lot of the last few days.He has been very weak, bedbound for a few days, and not doing well for a few weeks. I had physical therapy see him today, and while he is weak, he is cooperative and most likely will be able to go home without needing to have physical rehabilitation at a SNF. (3) Pancreatitis Conclusion/Plan: Abdomen pelvis CT shows scattered areas of patchy groundglass airspace opacity in both lower lobes as well as the right middle lobe and lingular segment of the left upper lobe. His solid organs show hepatic parenchyma consistent with hepatic steatosis. Dense focal fatty infiltration of the medial left hepatic lobe. Normal-sized liver. No hepatic masses. No intrahepatic or extrahepatic biliary duct dilatation. No pancreatic duct dilatation. Mild peripancreatic fat stranding. Start low-fat diet. Stop IV fluids if he is can be drinking enough. (4) Acute kidney injury Conclusion/Plan: Resolving. Admission creatinine was 1.7 and he is 0.9 by late morning Yesterday. Today he is 0.8. This is likely prerenal injury due to dehydration from his diabetic ketoacidosis and poorly controlled diabetes. His urinalysis did reveal RBC casts as well as occult blood. We will continue aggressive IV hydration and monitor his renal function and urine output. (5) Leukocytosis resolved. Conclusion/Plan: This is likely reactive. On admission 19>>20.3>10>>[address] of the abdomen shows him to have viral pneumonia. But I would expect lymphocytosis not bandemia. Now 2 sets of blood cultures from the is negative. (6) Hypokalemia Conclusion/Plan: He is being monitored closely. Continues to be hypokalemic at times and is receiving anywhere from 10 to 20 mEq via his central line.We will continue to monitor every 4 hours and supplement as needed. (7) Hyponatremia Waxes and wanes. Conclusion/Plan: This is pseudohyponatremia secondary to the hyperglycemia. When corrected for hyperglycemia, his sodium is within normal limits. We will continue to monitor. (8) Marijuana abuse Conclusion/Plan: He does have a history of marijuana use but his tells me that he can quit for up to months at a time. His urine toxicology was positive for marijuana. We will discuss this further with the patient once he is able to participate in a conversation.Today he has not been able to do so. (9) Bipolar disorder Conclusion/Plan: He is awake today. Will wait to discuss this after food, glucose, intake and output stabilize before introducing of the problems are discussed with him. (10) Central line access complication The patient pulled a central vin 08/10. I spoke to anesthesia who came to replace the line. Repeat chest x-ray was without pneumothorax and the patient c an use the line.
[2020-08-12 12:39] LABS: CALCIUM 8.4 mg/dL (8.5-10.3); CREATININE 0.8 mg/dL (0.6-1.2); POTASSIUM 3.4 mmol/L (3.5-5.0)
[2020-08-12] MEDS: POTASSIUM CHLOR 20 MEQ/100 ML 20 MEQ/100 ML BAG IV SCH ×2 (13:41→14:43)
[2020-08-12] MEDS: APIXABAN 2.5 MG TABLET PO SCH ×2 (14:15→21:02)
[2020-08-12] MEDS: ACETAMINOPHEN 325 MG TABLET PO PRN (16:59)
[2020-08-12] MEDS: SODIUM CHLORIDE 0.9% 500 ML IV PRN (18:18)
[2020-08-12] MEDS ORDERED: INSULIN GLARGINE 300 UNIT/3 ML PEN SUBQ SCH (21:00)
[2020-08-13] MEDS: SODIUM CHLORIDE FLUSH 0.9% 10 ML SYRINGE IVP SCH ×3 (05:00→17:42)
[2020-08-13 05:19] LABS: BASOPHILS % (AUTO) 0.4 %; EOSINOPHILS # (AUTO) 0.1 10^3/uL (0.0-0.7); EOSINOPHILS % (AUTO) 1.3 %; HCT - HEMATOCRIT 30.9 % (42.0-52.0); HGB - HEMOGLOBIN 11.2 g/dL (14.0-18.0); LYMPHOCYTES # (AUTO) 1.3 10^3/uL (1.5-3.5); LYMPHOCYTES % (AUTO) 26.8 %; MEAN CORPUSCULAR HEMOGLOBIN 30.2 pg (27.0-31.0); MEAN CORPUSCULAR HGB CONC 36.2 g/dL (32.0-36.0); MEAN CORPUSCULAR VOLUME 83.3 fL (80.0-94.0); MEAN PLATELET VOLUME 9.2 fL (7.4-11.4); MONOCYTES # (AUTO) 0.5 10^3/uL (0.0-1.0); MONOCYTES % (AUTO) 9.9 %; NEUTROPHILS # (AUTO) 2.8 10^3/uL (1.5-6.6); NEUTROPHILS % (AUTO) 60.7 %; PLT - PLATELET COUNT 211 10^3/uL (130-450); RED BLOOD COUNT 3.71 10^6/uL (4.70-6.10); RED CELL DISTRIBUTION WIDTH 15.9 % (12.0-15.0); WHITE BLOOD COUNT 4.7 x10^3/uL (4.8-10.8)
[2020-08-13 05:34] LABS: ALBUMIN 3.1 g/dL (3.2-5.5); BILIRUBIN,DIRECT 0.2 mg/dL (0.1-0.5); BILIRUBIN,TOTAL 0.9 mg/dL (0.2-1.0); CALCIUM 8.8 mg/dL (8.5-10.3); CREATININE 0.7 mg/dL (0.6-1.2); PHOSPHORUS 3.6 mg/dL (2.5-4.6); POTASSIUM 2.8 mmol/L (3.5-5.0); TOTAL PROTEIN 6.1 g/dL (6.7-8.2)
[2020-08-13] MEDS: POTASSIUM CHLORIDE 20 MEQ TABLET PO SCH ×2 (06:43→10:42)
[2020-08-13] MEDS: SODIUM CHLORIDE 0.9% 500 ML IV PRN (07:21)
[2020-08-13] MEDS: INSULIN ASPART 300 UNIT/3 ML PEN SUBQ SCH ×7 (08:10→20:54)
[2020-08-13] MEDS: INSULIN GLARGINE 300 UNIT/3 ML PEN SUBQ SCH (08:11)
[2020-08-13] MEDS: FENOFIBRATE 48 MG TABLET PO SCH (08:18)
[2020-08-13] MEDS: APIXABAN 2.5 MG TABLET PO SCH ×2 (08:19→20:46)
[2020-08-13] MEDS: NEUTRA-PHOS 250 MG TABLET PO SCH ×3 (08:19→17:38)
[2020-08-13] MEDS: polyethylene glycoL 3350 17 GM PACKET PO SCH (08:26)
[2020-08-13] MEDS ORDERED: INSULIN ASPART 300 UNIT/3 ML PEN SUBQ ONE (17:38)
--- NOTE | 2020-08-13 18:08 | PROVIDER PROGRESS NOTE ---
Progress Note August 13, 2020 17: 59 He has been stable today. Has worked with physical therapy and he is getting stronger. He eats about 25% of his food because "he does not want to hurt my feelings" the food is not good here. He is asked his to go get ribs. Over the course of the day his sugars have been 229, 270, 389. This is on Lantus 5 units in the morning and 10 units at night with sliding scale with each meal. 5 units of aspartate insulin with each meal as well. He denies any significant pain. His main problem is that of depression. He feels overwhelmed, and states sometimes that he wishes he could . But he has no suicidal ideation and that he is not planning to kill himself, feels like he should kill himself. He is just overwhelmed with all of this. His has been at the bedside. Yesterday he was insisting on nicotine gel for his mouth. I could not tell if he was talking about an [id number] nicotine or chew tobacco. I explained that it was not a good idea. No nausea, vomiting. No fever, no chills. No chest pain. Cough is getting better and better. Medication: He is on Tylenol, Eliquis, TriCor, aspartate insulin, Lantus insulin, morphine as needed, Zofran as needed, K-Phos. And potassium supplements as needed. Temperature is 36.6. Heart rate is 62. Blood pressure 110/71. Respirations 19. 96% on room air. He is a tall, alert, oriented white male with cachexia. Comfortable. No diaphoresis. Sitting up in his chair. Neck is supple Lungs are clear to auscultation and percussion with no increased respiratory effort Regular rate and rhythm without a murmur Abdomen is soft, nontender Extremities are very thin, no edema Potassium is 2.8. Again low today. And on ICU supplementation. Phosphorus is now 3.6. White cell count is 4.7. Hemoglobin 11.2. Assessment/plan 1. Viral pneumonia on CT of the chest. He is coronavirus positive with regards to the common cold but not COVID-19. He is only receiving supportive care. 2. DKA with electrolyte disturbance has resolved. Transitioned off of insulin drip yesterday morning and now on Lantus and short acting insulin. I am adjus ting on the basis of his glucose. 3. DKA may be type I. He will need diabetic education with regards to diet, insulin management. He has been very reluctant to check his own glucose and give himself his own injections. He is insinuating that he be me asking his to do these things. However his works during the day and he is going to have to learn how to do this for when she is gone. 4. Encephalopathy resolved. 5. Pancreatitis appears resolved. No abdominal pain. Tolerating food. Pancreatitis was mild. 6. Acute kidney injury resolved 7. Leukocytosis resolved 8. Hypokalemia continues. His phosphorus magnesium and calcium are now normal and we will continue to monitor 9. Bipolar disorder. At this time manifesting as severe depression. Anhedonia. Feeling overwhelmed. No carroll. Once he is through this acute episode of care, he will need to return to psychiatric evaluation and care. He gets his care through the [place] [facility]. 10. With his ICU stay, weakness and not eating in the days before his ICU stay, he has needed physical therapy. He is improving. We will continue to speak to physical therapy daily for their assessment to see where this patient should be placed. Does he needs halfway facility rehab, or he can go home with home health.
[2020-08-13 19:51] LABS: CALCIUM 8.7 mg/dL (8.5-10.3); CREATININE 0.9 mg/dL (0.6-1.2); POTASSIUM 3.3 mmol/L (3.5-5.0)
[2020-08-13] MEDS ORDERED: POTASSIUM CHLORIDE 20 MEQ TABLET PO ONE (19:56)
[2020-08-13] MEDS: oxyCODONE 5 MG TABLET PO PRN (20:46)
[2020-08-13] MEDS ORDERED: INSULIN GLARGINE 300 UNIT/3 ML PEN SUBQ SCH (21:00)
[2020-08-13] MEDS: ACETAMINOPHEN 325 MG TABLET PO PRN (23:08)
[2020-08-14] MEDS: oxyCODONE 5 MG TABLET PO PRN ×4 (03:11→21:11)
[2020-08-14] MEDS: SODIUM CHLORIDE FLUSH 0.9% 10 ML SYRINGE IVP SCH ×5 (04:53→23:31)
[2020-08-14] MEDS: SODIUM CHLORIDE FLUSH 0.9% 10 ML SYRINGE IVP PRN ×2 (04:54)
[2020-08-14 06:14] LABS: BASOPHILS % (AUTO) 0.4 %; EOSINOPHILS # (AUTO) 0.1 10^3/uL (0.0-0.7); EOSINOPHILS % (AUTO) 1.1 %; HCT - HEMATOCRIT 30.6 % (42.0-52.0); LYMPHOCYTES # (AUTO) 1.9 10^3/uL (1.5-3.5); LYMPHOCYTES % (AUTO) 41.6 %; MEAN CORPUSCULAR HEMOGLOBIN 30.1 pg (27.0-31.0); MEAN CORPUSCULAR HGB CONC 35.9 g/dL (32.0-36.0); MEAN CORPUSCULAR VOLUME 83.6 fL (80.0-94.0); MEAN PLATELET VOLUME 9.9 fL (7.4-11.4); MONOCYTES # (AUTO) 0.5 10^3/uL (0.0-1.0); MONOCYTES % (AUTO) 11.9 %; NEUTROPHILS % (AUTO) 44.3 %; PLT - PLATELET COUNT 238 10^3/uL (130-450); RED BLOOD COUNT 3.66 10^6/uL (4.70-6.10); RED CELL DISTRIBUTION WIDTH 15.6 % (12.0-15.0); WHITE BLOOD COUNT 4.5 x10^3/uL (4.8-10.8)
[2020-08-14 06:34] LABS: ALBUMIN 3.1 g/dL (3.2-5.5); BILIRUBIN,DIRECT 0.1 mg/dL (0.1-0.5); BILIRUBIN,TOTAL 0.7 mg/dL (0.2-1.0); CALCIUM 8.9 mg/dL (8.5-10.3); CREATININE 0.7 mg/dL (0.6-1.2); MAGNESIUM 2.1 mg/dL (1.7-2.8); PHOSPHORUS 3.2 mg/dL (2.5-4.6); POTASSIUM 2.8 mmol/L (3.5-5.0); TOTAL PROTEIN 5.9 g/dL (6.7-8.2)
[2020-08-14] MEDS: INSULIN ASPART 300 UNIT/3 ML PEN SUBQ SCH ×8 (08:03→21:14)
[2020-08-14] MEDS: INSULIN GLARGINE 300 UNIT/3 ML PEN SUBQ SCH (08:04)
[2020-08-14] MEDS: POTASSIUM CHLORIDE 20 MEQ TABLET PO SCH ×3 (08:17→21:11)
[2020-08-14] MEDS: NEUTRA-PHOS 250 MG TABLET PO SCH ×3 (08:17→17:02)
[2020-08-14] MEDS: APIXABAN 2.5 MG TABLET PO SCH ×2 (08:20→21:11)
[2020-08-14] MEDS: polyethylene glycoL 3350 17 GM PACKET PO SCH (08:20)
[2020-08-14] MEDS: FENOFIBRATE 48 MG TABLET PO SCH (08:30)
--- NOTE | 2020-08-14 16:57 | PROVIDER PROGRESS NOTE ---
Progress Note August 14, 2020 3:59 PM [facility] He is a 35-year-old male who has a bipolar disorder, chronic back pain, anxiety and depression who presents with increasing fatigue as well as nausea and vomiting. He was in the [place], and while there suffered back pain. He was medically discharged and had increasing problems with opiate use and possibly addiction. This was the beginning of numerous problems for him with regards to his mental status. He became erratic. Very depressed. This did evolved to being diagnosed as a bipolar disorder. He was taking Abilify, lithium, and Zoloft. He then went to [place] 6 weeks prior to admission. His mom wanted to take him there for a second opinion. While there they changed his medications around. Started tapering them. He came back to the [place] and stopped taking all of his medications 2 to 3 weeks ago. He was constantly breathing fast, and started lose weight. He is lost close to 40 pounds in the last couple of months. Thinking that he had a viral infection, his took him to [facility] a few days prior to admission where he was diagnosed with a URI and swab showed coronavirus. Not COVID-19 but regular URI coronavirus. He has been drinking quite a bit of fluids. The last 10 to 15 pounds were lost in the last few weeks. He then developed nausea and vomiting. Right upper quadrant pain. Occasionally smokes cannabis. Has a history of alcohol abuse in the past but no alcohol abuse currently. He was brought into the emergency room and was found to be in DKA. He does not have a previous history of diabetes. He has been very difficult to bring down his glucose. He was on an insulin drip for several days . He has had need of aggressive potassium and phosphorus supplementation on a regular basis. Even now when not on the insulin drip. He has been moved out of ICU to [facility]. I kept him in ICU not so much because of hemodynamic instability or special medication but because he needed such aggressive potassium replacement. I need to the ICU protocol for electrolyte replacement that cannot be done on the floor. His potassium is low again at 2.8 this morning. Over the course of his stay he is required 80 mEq a day at times. He still wants to sleep a lot. But he is eating 100% of his meals. Even with coverage of his Lantus and insulin, yesterday his glucose was 229, 270, 389, and 323 before he went to sleep. I increase his Lantus yesterday evening to 16 units. And I continued 5 units at breakfast. With that his glucose was 174 this morning, 284 with lunch. No nausea, abdominal pain. No cough, no shortness of breath. Medications are Tylenol, Eliquis for DVT prophylaxis (he refused Lovenox), TriCor, K-Phos 3 times a day, oxycodone as needed, Zofran as needed, morphine as needed, Lantus 16 units at night and 5 units in the morning. Sliding scale insulin with meals. Temperature is 37.1, pulse 71, blood pressure 112/59. Respirations 18 and 100% on room air. He is a thin tall white male who looks cachectic with bilateral temporal wasting, rib cage visible. Neck is supple. Lungs are clear to auscultation and percussion with diminished breath sounds at the bases. He has slow shallow unlabored respiration Abdomen is soft, nontender hypoactive bowel sounds Extremities without edema He ambulates in the room with standby assist. He has got moderate weakness and is seeing physical therapy. Potassium was 2.8 again this morning. Given 40 mEq, 2 doses 4 hours apart and his repeat potassium was 3.6. White cell count was elevated on admission to 19.9, then went to 20.3. He was normal on August 12 but has become mildly neutropenic yesterday and today at 4.7 and 4.5. Hemoglobin was 15.3 on admission is 11 on today's evaluation. Assessment/plan 1. Viral pneumonia on CT of chest that is being treated only through supportive measures. Hypoxia has been resolved. 2. DKA with electrolyte disturbance including hypokalemia, hypocalcemia, hypophosphatemia have resolved. Rather all of those resolved except for the low potassium that he needs constant supplementation for. 3. DKA, probably type I. That is his biggest problem right now. Very reluctant to assume responsibility for his own care and indicates that sometimes he wants his to check his sugar and give him insulin. I have asked nursing to make sure that he is checking his own glucose and giving himself his own insulin. He needs medications called in to his pharmacy first thing to make sure that his insurance covers them. I would do that on the first day of service because anticipate he will be discharged till approximately August 16 to make sure his glucose stays under control. 4. Resolved encephalopathy 5. Mild abdominal pain on admission with mildly elevated lipase indicating mild pancreatitis. All of that has resolved 6. Acute kidney injury resolved 7. Leukocytosis resolved 8. Hypokalemia continues and we will start him on 40 mEq twice daily on a regular schedule 9. Bipolar disorder with current phase of severe depression. Work with social work to find out where placement should be for him. He is not suicidal, but occasionally states that he wishes he was because life is no meaning for him. 9. Generalized weakness. Improving with physical therapy. Physical therapy is now leaning toward him going home with home health follow-up.
[2020-08-14] MEDS ORDERED: INSULIN GLARGINE 300 UNIT/3 ML PEN SUBQ SCH (21:00)
[2020-08-15] MEDS: SODIUM CHLORIDE FLUSH 0.9% 10 ML SYRINGE IVP PRN ×2 (04:45)
[2020-08-15 05:08] LABS: BASOPHILS % (AUTO) 0.6 %; EOSINOPHILS # (AUTO) 0.1 10^3/uL (0.0-0.7); EOSINOPHILS % (AUTO) 1.8 %; HCT - HEMATOCRIT 32.4 % (42.0-52.0); HGB - HEMOGLOBIN 11.3 g/dL (14.0-18.0); LYMPHOCYTES # (AUTO) 2.3 10^3/uL (1.5-3.5); LYMPHOCYTES % (AUTO) 44.6 %; MEAN CORPUSCULAR HEMOGLOBIN 30.3 pg (27.0-31.0); MEAN CORPUSCULAR HGB CONC 34.9 g/dL (32.0-36.0); MEAN CORPUSCULAR VOLUME 86.9 fL (80.0-94.0); MEAN PLATELET VOLUME 9.5 fL (7.4-11.4); MONOCYTES # (AUTO) 0.5 10^3/uL (0.0-1.0); MONOCYTES % (AUTO) 9.7 %; NEUTROPHILS # (AUTO) 2.2 10^3/uL (1.5-6.6); NEUTROPHILS % (AUTO) 42.5 %; PLT - PLATELET COUNT 250 10^3/uL (130-450); RED BLOOD COUNT 3.73 10^6/uL (4.70-6.10); RED CELL DISTRIBUTION WIDTH 16.2 % (12.0-15.0); WHITE BLOOD COUNT 5.1 x10^3/uL (4.8-10.8)
[2020-08-15 05:26] LABS: CALCIUM 9.2 mg/dL (8.5-10.3); CREATININE 0.7 mg/dL (0.6-1.2); MAGNESIUM 2.2 mg/dL (1.7-2.8); POTASSIUM 4.1 mmol/L (3.5-5.0)
--- NOTE | 2020-08-15 07:29 | PROVIDER PROGRESS NOTE ---
Assessment/Plan - Current Meds Current Meds: Current Medications Generic Name Dose Route Start Last Admin Trade Name Freq PRN Reason Stop Dose Admin Acetaminophen 650 mg 08/09/20 19:32 08/13/20 23:08 Acetaminophen 325 Mg Tablet PO 650 mg Q4HR PRN Administration Pain 1 to 4 Apixaban 2.5 mg 08/12/20 14:00 08/14/20 21:11 Apixaban 2.5 Mg Tablet PO 2.5 mg BID JOSHUA Administration Fenofibrate 144 mg 08/12/20 09:00 08/14/20 08:30 Fenofibrate 48 Mg Tablet PO 144 mg DAILY JOSHUA Administration Sodium Chloride 500 mls @ 20 mls/hr 08/10/20 21:23 08/14/20 10:11 Normal Saline 0.9% IV Infused Q24H PRN Infusion TKO RATE Insulin Aspart 5 unit 08/12/20 17:00 08/14/20 17:02 Insulin Aspart 300 Unit/3 Ml Pen SUBQ 5 unit TIDWM JOSHUA Administration Protocol Insulin Aspart 2 - 10 unit 08/14/20 21:00 08/14/20 21:14 Insulin Aspart 300 Unit/3 Ml Pen SUBQ 2 unit 0800,1200,1700,2100 JOSHUA Administration Protocol Insulin Glargine 20 unit 08/14/20 21:00 08/14/20 21:13 Insulin Glargine 300 Unit/3 Ml Pen SUBQ 20 unit QPM JOSHUA Administration Oxycodone HCl 5 mg 08/09/20 19:32 08/14/20 21:11 Oxycodone 5 Mg Tablet PO 5 mg Q4HR PRN Administration Pain 5 to 7 Polyethylene Glycol 17 gm 08/11/20 09:00 08/14/20 08:20 Polyethylene Glycol 3350 17 Gm Packet PO Not Given DAILY JOSHUA Potassium Chloride 40 meq 08/14/20 21:00 08/14/20 21:11 Potassium Chloride 20 Meq Tablet PO 40 meq BID JOSHUA Administration Sodium Chloride 10 ml 08/10/20 01:00 08/14/20 23:31 Sodium Chloride Flush 0.9% 10 Ml Syringe IVP 10 ml 0100,0900,1700 JOSHUA Administration Sodium Chloride 10 ml 08/09/20 19:32 08/15/20 04:45 Sodium Chloride Flush 0.9% 10 Ml Syringe IVP 10 ml PRN PRN Administration NEEDED PER PROVIDER ORDERS Sodium Chloride 20 ml 05/27/21 04:46 08/15/20 04:45 Sodium Chloride Flush 0.9% 10 Ml Syringe IVP 20 ml PRN PRN Administration After Blood Draw Sodium Phosphate 250 mg 08/11/20 17:30 08/14/20 17:02 Neutra-Phos 250 Mg Tablet PO 250 mg TIDWM JOSHUA Administration - Lab Result Fish Bone Diagrams: 08/15/20 04:50 08/15/20 04:50 Objective Vital Signs: Vital Signs - 24 hr 08/14/20 08/14/20 08/15/20 12:05 15:48 00:00 Temperature 36.5 C 37.1 C 36.7 C Heart Rate [ 75 Brachial] Heart Rate [ 89 71 Monitoring electrodes] Respiratory 18 18 18 Rate Blood Pressure 113/80 112/59 L 95/53 L [Right Brachial artery] O2 Saturation 100 100 100 Oxygen O2 Source [With Activity] Room air O2 Source Room air I&O (Last 24 Hrs): Intake and Output Totals x24h 08/13/20 08/14/20 08/15/20 23:59 23:59 23:59 Intake Total 1980 2843.266 Output Total 1225 725 Balance 756 2118.266 - Results Results: Laboratory Results WBC 5.1 x10^3/uL (4.8-10.8) 08/15/20 04:50 RBC 3.73 10^6/uL (4.70-6.10) L 08/15/20 04:50 Hgb 11.3 g/dL (14.0-18.0) L 08/15/20 04:50 Hct 32.4 % (42.0-52.0) L 08/15/20 04:50 MCV 86.9 fL (80.0-94.0) 08/15/20 04:50 MCH 30.3 pg (27.0-31.0) 08/15/20 04:50 MCHC 34.9 g/dL (32.0-36.0) 08/15/20 04:50 RDW 16.2 % (12.0-15.0) H 08/15/20 04:50 Plt Count 250 10^3/uL (130-450) 08/15/20 04:50 MPV 9.5 fL (7.4-11.4) 08/15/20 04:50 Neut # (Auto) 2.2 10^3/uL (1.5-6.6) 08/15/20 04:50 Lymph # (Auto) 2.3 10^3/uL (1.5-3.5) 08/15/20 04:50 Luna # (Auto) 0.5 10^3/uL (0.0-1.0) 08/15/20 04:50 Eos # (Auto) 0.1 10^3/uL (0.0-0.7) 08/15/20 04:50 Baso # (Auto) 0.0 10^3/uL (0.0-0.1) 08/15/20 04:50 Absolute Nucleated RBC 0.00 x10^3/uL 08/15/20 04:50 Total Counted 100 08/10/20 04:30 Band Neuts % (Manual) 28 % (0-10) H 08/10/20 04:30 Abnorm Lymph % (Manual) 0 % 08/10/20 04:30 Nucleated RBC % 0.0 /100WBC 08/15/20 04:50 Neutrophils # (Manual) 19.1 10^3/uL (1.5-6.6) H 08/10/20 04:30 Lymphocytes # (Manual) 0.6 10^3/uL (1.5-3.5) L 08/10/20 04:30 Monocytes # (Manual) 0.6 10^3/uL (0.0-1.0) 08/10/20 04:30 Eosinophils # (Manual) 0.0 10^3/uL (0-0.7) 08/10/20 04:30 Basophils # (Manual) 0.0 10^3/uL (0-0.1) 08/10/20 04:30 Differential Comment MANUAL DIFFERENTIAL 08/10/20 04:30 WBC Morphology 2+ TOXIC GRANULATION (NORMAL) 08/09/20 15:36 Platelet Estimate NORMAL (130-450,000) (NORMAL) 08/10/20 04:30 Platelet Morphology NORMAL APPEARANCE (NORMAL) 08/09/20 15:36 RBC Morph Micro Appear NORMAL APPEARANCE (NORMAL) 08/10/20 04:30 VBG pH 6.893 (7.31-7.41) L 08/09/20 17:36 VBG pCO2 19.6 mmHg (41-51) L 08/09/20 17:36 VBG pO2 52.2 mmHg (25-47) H 08/09/20 17:36 VBG HCO3 3.7 mmol/L (23-28) L 08/09/20 17:36 VBG Total CO2 4.3 mmol/L (24-29) L 08/09/20 17:36 VBG O2 Saturation 83.5 % (60-80) H 08/09/20 17:36 VBG Base Excess -28.3 mmol/L (-2 - +2) L 08/09/20 17:36 Sodium 138 mmol/L (135-145) 08/15/20 04:50 Potassium 4.1 mmol/L (3.5-5.0) 08/15/20 04:50 Chloride 96 mmol/L (101-111) L 08/15/20 04:50 Carbon Dioxide 31 mmol/L (21-32) 08/15/20 04:50 Anion Gap 11.0 (6-13) 08/15/20 04:50 BUN 17 mg/dL (6-20) 08/15/20 04:50 Creatinine 0.7 mg/dL (0.6-1.2) 08/15/20 04:50 Estimated GFR (MDRD) 129 (>89) 08/15/20 04:50 Glucose 274 mg/dL (70-100) H 08/15/20 04:50 Estimat Average Glucose 364 mg/dL (70-100) H 08/10/20 04:30 Hemoglobin A1c % 14.3 % (4.27-6.07) H 08/10/20 04:30 Lactic Acid 1.2 mmol/L (0.5-2.2) 08/09/20 20:05 Calcium 9.2 mg/dL (8.5-10.3) 08/15/20 04:50 Phosphorus 3.2 mg/dL (2.5-4.6) 08/14/20 05:00 Magnesium 2.2 mg/dL (1.7-2.8) 08/15/20 04:50 Total Bilirubin 0.7 mg/dL (0.2-1.0) 08/14/20 05:00 Direct Bilirubin 0.1 mg/dL (0.1-0.5) 08/14/20 05:00 AST 16 IU/L (10-42) 08/14/20 05:00 ALT 16 IU/L (10-60) 08/14/20 05:00 Alkaline Phosphatase 94 IU/L (42-121) 08/14/20 05:00 Troponin I High Sens 15.3 ng/L (2.3-19.7) 08/09/20 18:53 Total Protein 5.9 g/dL (6.7-8.2) L 08/14/20 05:00 Albumin 3.1 g/dL (3.2-5.5) L 08/14/20 05:00 Globulin 2.8 g/dL (2.1-4.2) 08/14/20 05:00 Albumin/Globulin Ratio 1.3 (1.0-2.2) 08/09/20 17:36 Triglycerides 692 mg/dL (-149) H 08/09/20 18:50 Cholesterol 296 mg/dL (-199) H 08/09/20 18:50 LDL Cholesterol Direct 138 mg/dL (-129) H 08/09/20 18:50 LDL Cholesterol, Calc Not Reportable 08/09/20 18:50 VLDL Cholesterol Not Reportable 08/09/20 18:50 HDL Cholesterol 25 mg/dL (60-) L 08/09/20 18:50 LDL/HDL Ratio Not Reportable 08/09/20 18:50 dLDL/HDL Ratio 5.5 (<3.6) 08/09/20 18:50 Cholesterol/HDL Ratio 11.8 (<5.0) 08/09/20 18:50 Amylase 292 U/L (28-100) H 08/10/20 04:30 Lipase 213 U/L (22-51) H 08/10/20 04:30 TSH 0.48 uIU/mL (0.34-5.60) 08/09/20 15:36 Thyroxine (T4) 4.04 ug/dL (6.09-12.23) L 08/11/20 18:30 Urine Color YELLOW 08/09/20 15:15 Urine Clarity CLEAR (CLEAR) 08/09/20 15:15 Urine pH 5.5 PH (5.0-7.5) 08/09/20 15:15 Ur Specific [place] >=1.030 (1.002-1.030) H 08/09/20 15:15 Urine Protein 100 mg/dL (NEGATIVE) H 08/09/20 15:15 Urine Glucose (UA) >=1000 mg/dL (NEGATIVE) H 08/09/20 15:15 Urine Ketones >=80 mg/dL (NEGATIVE) H 08/09/20 15:15 Urine Occult Blood MODERATE (NEGATIVE) H 08/09/20 15:15 Urine Nitrite NEGATIVE (NEGATIVE) 08/09/20 15:15 Urine Bilirubin NEGATIVE (NEGATIVE) 08/09/20 15:15 Urine Urobilinogen 0.2 (NORMAL) E.U./dL (NORMAL) 08/09/20 15:15 Ur Leukocyte Esterase NEGATIVE (NEGATIVE) 08/09/20 15:15 Urine RBC 6-10 /HPF (0-5) H 08/09/20 15:15 Urine WBC 0-3 /HPF (0-3) 08/09/20 15:15 Ur Squamous Epith Cells FEW Squamous (<= Few) 08/09/20 15:15 Amorphous Sediment Few /LPF 08/09/20 15:15 Urine Bacteria Rare /HPF (None Seen) 08/09/20 15:15 Urine Casts 6-10 RBC Casts /LPF 08/09/20 15:15 Urine Mucus Few Strands 08/09/20 15:15 Ur Microscopic Review INDICATED 08/09/20 15:15 Urine Culture Comments NOT INDICATED 08/09/20 15:15 Nasal Adenovirus (PCR) NOT DETECTED 08/09/20 19:01 Nasal B. parapertussis DNA (PCR) NOT DETECTED 08/09/20 19:01 Nasal Coronavir 229E PCR NOT DETECTED 08/09/20 19:01 Nasal Coronavir HKU1 PCR NOT DETECTED 08/09/20 19:01 Nasal Coronavir NL63 PCR NOT DETECTED 08/09/20 19:01 Nasal Coronavir OC43 PCR DETECTED A 08/09/20 19:01 Nasal Enterovir/Rhinovir PCR NOT DETECTED 08/09/20 19:01 Nasal Influenza B PCR NOT DETECTED 08/09/20 19:01 Nasal Influenza A PCR NOT DETECTED 08/09/20 19:01 Nasal Parainfluen 1 PCR NOT DETECTED 08/09/20 19:01 Nasal Parainfluen 2 PCR NOT DETECTED 08/09/20 19:01 Nasal Parainfluen 3 PCR NOT DETECTED 08/09/20 19:01 Nasal Parainfluen 4 PCR NOT DETECTED 08/09/20 19:01 Nasal RSV (PCR) NOT DETECTED 08/09/20 19:01 Nasal Screen MRSA (PCR) NEGATIVE (NEGATIVE) 08/09/20 20:25 Nasal B.pertussis DNA PCR NOT DETECTED 08/09/20 19:01 Nasal C.pneumoniae (PCR) NOT DETECTED 08/09/20 19:01 Geoff Human Metapneumo PCR NOT DETECTED 08/09/20 19:01 Nasal M.pneumoniae (PCR) NOT DETECTED 08/09/20 19:01 Nasal SARS-CoV-2 (PCR) NOT DETECTED 08/09/20 19:01 Salicylates < 6.0 mg/dL 08/09/20 15:36 Urine Opiates Screen POSITIVE (NEGATIVE) H 08/09/20 15:15 Ur Oxycodone Screen NEGATIVE (NEGATIVE) 08/09/20 15:15 Urine Methadone Screen NEGATIVE (NEGATIVE) 08/09/20 15:15 Ur Propoxyphene Screen NEGATIVE (NEGATIVE) 08/09/20 15:15 Acetaminophen < 10 ug/mL (10-30) L 08/09/20 15:36 Ur Barbiturates Screen NEGATIVE (NEGATIVE) 08/09/20 15:15 Ur Tricyclics Screen NEGATIVE (NEGATIVE) 08/09/20 15:15 Ur Phencyclidine Scrn NEGATIVE (NEGATIVE) 08/09/20 15:15 Ur Amphetamine Screen NEGATIVE (NEGATIVE) 08/09/20 15:15 U Methamphetamines Scrn NEGATIVE (NEGATIVE) 08/09/20 15:15 U Benzodiazepines Scrn NEGATIVE (NEGATIVE) 08/09/20 15:15 Urine Cocaine Screen NEGATIVE (NEGATIVE) 08/09/20 15:15 U Cannabinoids Screen POSITIVE (NEGATIVE) H 08/09/20 15:15 Ethyl Alcohol < 5.0 mg/dL 08/09/20 15:36 Serum Ketones MODERATE (NEGATIVE) H 08/09/20 17:36 ABX Reporting Has patient been on IV antibiotics over the past 48 hours?: No
[2020-08-15] MEDS ORDERED: INSULIN GLARGINE 300 UNIT/3 ML PEN SUBQ SCH (08:00)
[2020-08-15] MEDS: oxyCODONE 5 MG TABLET PO PRN (08:04)
[2020-08-15] MEDS: INSULIN ASPART 300 UNIT/3 ML PEN SUBQ SCH ×4 (08:04→11:57)
[2020-08-15] MEDS: FENOFIBRATE 48 MG TABLET PO SCH (08:21)
[2020-08-15] MEDS: POTASSIUM CHLORIDE 20 MEQ TABLET PO SCH (08:21)
[2020-08-15] MEDS: SODIUM CHLORIDE FLUSH 0.9% 10 ML SYRINGE IVP SCH (08:22)
[2020-08-15] MEDS: NEUTRA-PHOS 250 MG TABLET PO SCH ×2 (08:22→11:58)
[2020-08-15] MEDS: polyethylene glycoL 3350 17 GM PACKET PO SCH (08:22)
[2020-08-15] MEDS: APIXABAN 2.5 MG TABLET PO SCH (08:22)
[2020-08-15 08:31] VITALS: BP 97/62
--- NOTE | 2020-08-15 09:24 | DISCHARGE SUMMARY ---
"Discharge Summary Admit Date: 08/09/20 Discharge Date: 08/15/20 Discharging Provider: Kulwant Pearcetu Code Status: Attempt Resuscitation Condition at Discharge: Stable Discharge Disposition: 01 Home, Self Care - DIAGNOSES Admission Diagnoses: DKA Encephalopathy Pancreatitis Acute kidney injury Leukocytosis Hypokalemia Hyponatremia Marijuana abuse Bipolar disorder Discharge Diagnoses with Status of Each Condition: Viral pneumonia: Improving. Hypoxia resolved. Continue supportive measures upon discharge. DKA: Acute. Resolved. New onset diabetes mellitus type 1. Encephalopathy: Acute. Resolved. Pancreatitis: Acute. Resolved. Acute kidney injury: Acute. Resolved. Leukocytosis: Acute. Resolved. Hypokalemia: Acute. Resolved. Hyponatremia: Acute. Resolved. Marijuana abuse: Chronic Bipolar disorder: Chronic| Generalized weakness: Daily. Improving. Patient to follow-up with primary care physician for outpatient PT referral - HOSPITAL COURSE Hospital Course: August 14, 2020 3:59 PM Summary for oncoming service. He is a 35-year-old male who has a bipolar disorder, chronic back pain, anxiety and depression who presents with increasing fatigue as well as nausea and vomiting. He was in the [place], and while there suffered back pain. He was medically discharged and had increasing problems with opiate use and possibly addiction. This was the beginning of numerous problems for him with regards to his mental status. He became erratic. Very depressed. This did evolved to being diagnosed as a bipolar disorder. He was taking Abilify, lithium, and Zoloft. He then went to [place] 6 weeks prior to admission. His mom wanted to take him there for a second opinion. While there they changed his medications around. Started tapering them. He came back to the [place] and stopped taking all of his medications 2 to 3 weeks ago. He was constantly breathing fast, and started lose weight. He is lost close to 40 pounds in the last couple of months. Thinking that he had a viral infection, his took him to [facility] a few days prior to admission where he was diagnosed with a URI and swab showed coronavirus. Not COVID-19 but regular URI coronavirus. He has been drinking quite a bit of fluids. The last 10 to 15 pounds were lost in the last few weeks. He then developed nausea and vomiting. Right upper quadrant pain. Occasionally smokes cannabis. Has a history of alcohol abuse in the past but no alcohol abuse currently. He was brought into the emergency room and was found to be in DKA. He does not have a previous history of diabetes. He has been very difficult to bring down his glucose. He was on an insulin drip for several days . He has had need of aggressive potassium and phosphorus supplementation on a regular basis. Even now when not on the insulin drip. He has been moved out of ICU to [facility]. I kept him in ICU not so much because of hemodynamic instability or special medication but because he needed such aggressive potassium replacement. I need to the ICU protocol for electrolyte replacement that cannot be done on the floor. His potassium is low again at 2.8 this morning. Over the course of his stay he is required 80 mEq a day at times. He still wants to sleep a lot. But he is eating 100% of his meals. Even with coverage of his Lantus and insulin, yesterday his glucose was 229, 270, 389, and 323 before he went to sleep. I increase his Lantus yesterday evening to 16 units. And I continued 5 units at breakfast. With that his glucose was 174 this morning, 284 with lunch. No nausea, abdominal pain. No cough, no shortness of breath. Medications are Tylenol, Eliquis for DVT prophylaxis (he refused Lovenox), TriCor, K-Phos 3 times a day, oxycodone as needed, Zofran as needed, morphine as needed, Lantus 16 units at night and 5 units in the morning. Sliding scale insulin with meals. August 15, 2020 Patient was resting comfortably in bed at time of exam. He reports to feeling better today. Denied any pain, difficulty in breathing, nausea, vomiting, fever or chills. He was eager to be discharged. His blood sugar this morning was 274 consequently the Lantus dose upon discharge was change to 30 units every afternoon. He will continue taking NovoLog 5 units 3 times daily with meals and the sliding scale as needed. He is to follow-up with primary care physician and diabetic educators. It is expected that the primary care physician will also make a referral for outpatient physical therapy. - ALLERGIES Allergies/Adverse Reactions: Allergies Allergy/AdvReac Type Severity Reaction Status Date / Time No Known Drug Allergies Allergy Verified 08/09/20 14:53 - MEDICATIONS Home Medications: Ambulatory Orders Medication Instructions Recorded Confirmed Mirtazapine [Remeron] 15 mg PO DAILY 02/19/17 08/11/20 OLANZapine [Zyprexa] 10 mg PO DAILY PM 02/19/17 08/11/20 Tizanidine HCl 4 mg PO TID PRN #25 capsule 03/01/19 08/11/20 LORazepam [Ativan] 1 mg PO TID PRN #15 tablet 03/26/19 08/11/20 traZODone [Desyrel] 50 mg PO HS PRN #15 tablet 03/26/19 08/11/20 ARIPiprazole [Abilify] 5 mg PO DAILY 08/10/20 08/11/20 Blood Sugar Diagnostic [Freestyle 1 each MC TID #1 packet 08/14/20 Lite Test Strip] Blood-Glucose Meter [Glucometer] 1 each MC DAILY #1 each 08/14/20 Insulin Aspart [NovoLOG] 5 unit SUBQ TIDWM #2 pe 08/14/20 Lancets [Blood Lancets] 1 each TID #1 packet 08/14/20 Pen Needle, Diabetic [Insulin Pen 1 each MC TID #1 packet 08/14/20 Needle] Insulin Glargine [Lantus Solostar] 30 unit SUBQ QPM #3 08/15/20 - PHYSICAL EXAM AT DISCHARGE General Appearance: positive: No acute distress, Alert Eyes Bilateral: positive: PERRL, EOMI ENT: positive: No signs of dehydration Neck: positive: No JVD, Trachea midline Respiratory: positive: Chest non-tender, No respiratory distress, Breath sounds nml. negative: Wheezes, Rales, Rhonchi Cardiovascular: positive: Regular rate & rhythm, No murmur Abdomen: positive: Non-tender, Nml bowel sounds, No distention. negative: Guarding, Rebound Back: positive: Nml inspection Skin: positive: Color nml, No rash, Warm, Dry Extremities: positive: Non-tender, Full ROM, Nml appearance, No pedal edema Neurologic/Psychiatric: positive: Oriented x3, Mood/affect nml - LABS Result Diagrams: 08/15/20 04:50 08/15/20 04:50 - TIME SPENT Time Spent in Discharge (Minutes): 25"
--- NOTE | 2020-08-15 09:31 | Discharge Plan ---
Discharge Plan Problem Reviewed?: Yes Disposition: Home, Self Care Condition: Stable Prescriptions: Lancets [Blood Lancets] 1 each TID #1 packet Blood Sugar Diagnostic [Freestyle Lite Test Strip] 1 each TID #1 packet Blood-Glucose Meter [Glucometer] 1 each MC DAILY #1 each Pen Needle, Diabetic [Insulin Pen Needle] 1 each TID #1 packet Insulin Glargine [Lantus Solostar] 30 unit SUBQ QPM #3 Insulin Aspart [NovoLOG] 5 unit SUBQ TIDWM #2 pe Diet: Diabetic Activity Restrictions: Activity as Tolerated Instruction Topics: Hyperglycemia, Hypoglycemia, Blood Sugar Check, Insulin Injected, Diabetes Sick Day Plan, Injection Pens Dc, Diabetes Dx Health Concerns: You were admitted 6 days ago to the ICU for DKA. He also had significant electrolyte imbalances. Over the past 6 days your electrolytes were replaced and you were treated initially with insulin drip and then switched to Lantus and regular insulin. You are currently stable and will be discharged today. You are to take Lantus 30 units subcu in the evening daily. NovoLog which is regular insulin 5 units subcu 3 times daily with meals. You would use a sliding scale insulin as indicated as well. You are to follow-up with your primary care physician and outpatient adaptive physical educator. It is expected that your primary care physician will do a referral for outpatient physical therapy. You will continue taking your other home medications as prescribed. The above was explained to you. You expressed understanding and in agreement. Plan of Treatment: You were admitted 6 days ago to the ICU for DKA. He also had significant electrolyte imbalances. Over the past 6 days your electrolytes were replaced and you were treated initially with insulin drip and then switched to Lantus and regular insulin. You are currently stable and will be discharged today. You are to take Lantus 30 units subcu in the evening daily. NovoLog which is regular insulin 5 units subcu 3 times daily with meals. You would use a sliding scale insulin as indicated as well. You are to follow-up with your primary care physician and outpatient adaptive physical educator. It is expected that your primary care physician will do a referral for outpatient physical therapy. You will continue taking your other home medications as prescribed. The above was explained to you. You expressed understanding and in agreement. Care Goals: You were admitted 6 days ago to the ICU for DKA. He also had significant electrolyte imbalances. Over the past 6 days your electrolytes were replaced and you were treated initially with insulin drip and then switched to Lantus and regular insulin. You are currently stable and will be discharged today. You are to take Lantus 30 units subcu in the evening daily. NovoLog which is regular insulin 5 units subcu 3 times daily with meals. You would use a sliding scale insulin as indicated as well. You are to follow-up with your primary care physician and outpatient adaptive physical educator. It is expected that your primary care physician will do a referral for outpatient physical therapy. You will continue taking your other home medications as prescribed. The above was explained to you. You expressed understanding and in agreement. Assessment: You were admitted 6 days ago to the ICU for DKA. He also had significant elec trolyte imbalances. Over the past 6 days your electrolytes were replaced and you were treated initially with insulin drip and then switched to Lantus and regular insulin. You are currently stable and will be discharged today. You are to take Lantus 30 units subcu in the evening daily. NovoLog which is regular insulin 5 units subcu 3 times daily with meals. You would use a sliding scale insulin as indicated as well. You are to follow-up with your primary care physician and outpatient adaptive physical educator. It is expected that your primary care physician will do a referral for outpatient physical therapy. You will continue taking your other home medications as prescribed. The above was explained to you. You expressed understanding and in agreement. Follow-Up Care: Outpatient Rehab - PT No Smoking: If you smoke, Please STOP! Call for help.
== END 2020-08-15 11:50 | disposition home or self-care (01) | DRG 438 ==
LOC: EDUNIT# → ED 14:42 → ICU 19:32 → MS2 08-14 09:10
PROVIDERS: ADMIT Internal Medicine; ATTEND Internal Medicine
PROC: 02HV33Z Insertion of Infusion Device into Superior Vena Cava, Percutaneous Approach (ICD-10-PCS; principal; 2020-08-09)
DX: K85.90 Acute pancreatitis without necrosis or infection, unspecified (principal); J12.89 Other viral pneumonia; E10.11 Type 1 diabetes mellitus with ketoacidosis with coma; G93.40 Encephalopathy, unspecified; N17.9 Acute kidney failure, unspecified; E87.1 Hypo-osmolality and hyponatremia; B97.29 Other coronavirus as the cause of diseases classified elsewhere; R09.02 Hypoxemia; E87.6 Hypokalemia; E86.0 Dehydration; E83.39 Other disorders of phosphorus metabolism; F12.10 Cannabis abuse, uncomplicated; F31.9 Bipolar disorder, unspecified; D72.829 Elevated white blood cell count, unspecified; K76.0 Fatty (change of) liver, not elsewhere classified; G89.29 Other chronic pain; M54.9 Dorsalgia, unspecified; F41.9 Anxiety disorder, unspecified; F10.11 Alcohol abuse, in remission; Z79.899 Other long term (current) drug therapy
CPT/HCPCS: 0202U; 36415; 36556; 70450; 71045; 74177; 80048; 80053; 80061; 80076; 80306; 80307; 80320; 80329; 81001; 82009; 82150; 82803; 83036; 83605; 83690; 83721; 83735; 84100; 84132; 84436; 84443; 84484; 85025; 87040; 87150; 96365; 96366; 96367; 96375; 97116; 97161; 99285; 99291; A9270; J1650; J1815; J2060; Q9967; 81003; 82947; 87086

== ENCOUNTER 2021-01-11 14:35 | Emergency (ER) | payer OTHER ==
[2021-01-11 15:16] LABS: BASOPHILS % (AUTO) 0.2 %; EOSINOPHILS % (AUTO) 0.2 %; HCT - HEMATOCRIT 45.4 % (42.0-52.0); HGB - HEMOGLOBIN 15.3 g/dL (14.0-18.0); LYMPHOCYTES # (AUTO) 1.2 10^3/uL (1.5-3.5); MEAN CORPUSCULAR HEMOGLOBIN 28.9 pg (27.0-31.0); MEAN CORPUSCULAR HGB CONC 33.7 g/dL (32.0-36.0); MEAN CORPUSCULAR VOLUME 85.8 fL (80.0-94.0); MONOCYTES # (AUTO) 0.5 10^3/uL (0.0-1.0); MONOCYTES % (AUTO) 5.3 %; NEUTROPHILS # (AUTO) 6.9 10^3/uL (1.5-6.6); NEUTROPHILS % (AUTO) 80.2 %; PLT - PLATELET COUNT 263 10^3/uL (130-450); RED BLOOD COUNT 5.29 10^6/uL (4.70-6.10); RED CELL DISTRIBUTION WIDTH 12.3 % (12.0-15.0); WHITE BLOOD COUNT 8.7 x10^3/uL (4.8-10.8)
[2021-01-11 15:30] LABS: ALBUMIN/GLOBULIN RATIO 1.6 (1.0-2.2); ALKALINE PHOSPHATASE 124 IU/L (42-121); ALT ALANINE AMINOTRANSFERASE 20 IU/L (10-60); AST ASPARTATE AMINOTRANSFERASE 20 IU/L (10-42); BILIRUBIN,TOTAL 1.5 mg/dL (0.2-1.0); BUN - BLOOD UREA NITROGEN 14 mg/dL (6-20); CALCIUM 10.2 mg/dL (8.5-10.3); CARBON DIOXIDE - CO2 31 mmol/L (21-32); CHLORIDE 96 mmol/L (101-111); CREATININE 0.9 mg/dL (0.6-1.2); GFR - MDRD 96 (>89); GLUCOSE 237 mg/dL (70-100); MAGNESIUM 1.8 mg/dL (1.7-2.8); POTASSIUM 4.3 mmol/L (3.5-5.0); SODIUM 137 mmol/L (135-145); TOTAL PROTEIN 8.2 g/dL (6.7-8.2); VBG PCO2 55.5 mmHg (41-51); VBG PH 7.342 (7.31-7.41)
[2021-01-11 15:31] LABS: VBG BASE EXCESS 2.3 mmol/L (-2 - +2); VBG HCO3 29.4 mmol/L (23-28); VBG OXYGEN SATURATION 22.4 % (60-80); VBG PO2 < 19.0 mmHg (25-47); VBG TOTAL CO2 31.1 mmol/L (24-29)
[2021-01-11 15:41] LABS: KETONES, SERUM (ACETEST) NEGATIVE (NEGATIVE)
[2021-01-11] MEDS ORDERED: SODIUM CHLORIDE 0.9% 1,000 ML IV STA (17:21)
[2021-01-11] MEDS ORDERED: ONDANSETRON 4 MG/2 ML VIAL IVP STA (17:34)
--- NOTE | 2021-01-11 17:36 | ED Physician Documentation ---
History of Present Illness - Stated complaint Stated Complaint: VOMITING,DIABETIC ISSUE - Chief complaint Chief Complaint: General - Additonal information Additional information: 36-year-old type I diabetic male presents the emergency department for evaluation of nausea and vomiting as well as concerns that his blood sugar has not been well managed. Over the last week he reports that sugars have been as low as 150 and as high as 350. He typically takes Lantus 30 mg each evening as well as regular insulin on a sliding scale. He was seen by [facility] provider [facility] ago and due to an A1c that was 10 a referral to an quality control microbiology supervisor has been made though that has not yet happened. Patient reports he began vomiting yesterday though he has no abdominal pain. He has no fevers or cough. No diarrhea dysuria urgency or frequency. Review of Systems Constitutional: denies: Fever, Chills Eyes: reports: Reviewed and negative Ears: reports: Reviewed and negative Throat: reports: Reviewed and negative Respiratory: reports: Reviewed and negative GI: reports: Nausea, Vomiting. denies: Abdominal Pain, Diarrhea : denies: Dysuria, Frequency, Hesitancy Skin: denies: Rash, Lesions Musculoskeletal: reports: Reviewed and negative Neurologic: reports: Reviewed and negative PD PAST MEDICAL HISTORY - Past Medical History Cardiovascular: Other Respiratory: None Neuro: None Endocrine/Autoimmune: Type 1 diabetes GI: None : None Psych: Depression, Anxiety Musculoskeletal: Chronic back pain Derm: None - Past Surgical History Past Surgical History: Yes - Present Medications Home Medications: Ambulatory Orders Medication Instructions Recorded Confirmed traZODone [Desyrel] 50 mg PO HS PRN #15 tablet 03/26/19 01/11/21 ARIPiprazole [Abilify] 5 mg PO DAILY 08/10/20 01/11/21 Blood Sugar Diagnostic [Freestyle 1 each MC TID #1 packet 08/14/20 01/11/21 Lite Test Strip] Blood-Glucose Meter [Glucometer] 1 each MC DAILY #1 each 08/14/20 01/11/21 Insulin Aspart [NovoLOG] 5 unit SUBQ TIDWM #2 pe 08/14/20 01/11/21 Lancets [Blood Lancets] 1 each MC TID #1 packet 08/14/20 01/11/21 Pen Needle, Diabetic [Insulin Pen 1 each MC TID #1 packet 08/14/20 01/11/21 Needle] Insulin Glargine [Lantus Solostar] 30 unit SUBQ QPM #3 08/15/20 01/11/21 Buprenorphine HCl/Naloxone HCl 1 each SL PRN PRN 01/11/21 01/11/21 [Buprenorphine-Nalox 8-2Mg Film] Insulin Aspart [NovoLOG] 01/11/21 Ondansetron Odt [Zofran] 4 mg TL Q6H PRN #10 tablet 01/11/21 Sertraline HCl 100 mg PO DAILY 01/11/21 01/11/21 - Allergies Allergies/Adverse Reactions: Allergies Allergy/AdvReac Type Severity Reaction Status Date / Time No Known Drug Allergies Allergy Verified 01/11/21 14:39 - Social History Does the pt smoke?: Yes Smoking Status: Current every day smoker Does the pt drink ETOH?: Yes Does the pt have substance abuse?: No - Immunizations Immunizations are current?: Yes PD ED PE EXPANDED - General General: Alert, Well developed/nourished. No: No acute distress - Cardiac Cardiac: Regular Rate, Radial strong equal, Pedal strong equal, Cap refill < 2 sec. No: Murmur Present - Respiratory Respiratory: Clear to ausultation karson. No: Distress, Labored - Abdomen Abdomen: Normal Bowel sounds. No: Tender to palpation - Derm Derm: Normal color, Warm and dry. No: Rash - Extremities Extremities: Normal. No: Deformity, Tenderness - Neuro Neuro: Alert and Oriented X 3, CNII-XII intact - GCS Eye Opening: Spontaneous Motor: Obeys Commands Verbal: Oriented Total: 15 Results - Vitals Vitals: Vital Signs - 24 hr 01/11/21 01/11/21 14:39 17:55 Temperature 36.5 C Heart Rate 87 64 Respiratory 16 14 Rate Blood Pressure 123/86 H 130/97 H O2 Saturation 99 100 Oxygen O2 Source [With Activity] Room air O2 Source Room air - Labs Labs: Laboratory Tests 01/11/21 01/11/21 01/11/21 14:41 15:10 15:10 WBC 8.7 RBC 5.29 Hgb 15.3 Hct 45.4 MCV 85.8 MCH 28.9 MCHC 33.7 RDW 12.3 Plt Count 263 MPV 10.0 Neut # (Auto) 6.9 H Lymph # (Auto) 1.2 L [place] # (Auto) 0.5 Eos # (Auto) 0.0 Baso # (Auto) 0.0 Absolute Nucleated RBC 0.00 Nucleated RBC % 0.0 VBG pH VBG pCO2 VBG pO2 VBG HCO3 VBG Total CO2 VBG O2 Saturation VBG Base Excess Sodium 137 Potassium 4.3 Chloride 96 L Carbon Dioxide 31 Anion Gap 10.0 BUN 14 Creatinine 0.9 Estimated GFR (MDRD) 96 Glucose 237 H POC Whole Bld Glucose 242 H Calcium 10.2 Magnesium 1.8 Total Bilirubin 1.5 H AST 20 ALT 20 Alkaline Phosphatase 124 H Total Protein 8.2 Albumin 5.0 Globulin 3.2 Albumin/Globulin Ratio 1.6 Urine Color Urine Clarity Urine pH Ur Specific [place] Urine Protein Urine Glucose (UA) Urine Ketones Urine Occult Blood Urine Nitrite Urine Bilirubin Urine Urobilinogen Ur Leukocyte Esterase Ur Microscopic Review Urine Culture Comments Serum Ketones NEGATIVE 01/11/21 01/11/21 15:10 18:58 WBC RBC Hgb Hct MCV MCH MCHC RDW Plt Count MPV Neut # (Auto) Lymph # (Auto) [place] # (Auto) Eos # (Auto) Baso # (Auto) Absolute Nucleated RBC Nucleated RBC % VBG pH 7.342 VBG pCO2 55.5 H VBG pO2 < 19.0 L VBG HCO3 29.4 H VBG Total CO2 31.1 H VBG O2 Saturation 22.4 L VBG Base Excess 2.3 H Sodium Potassium Chloride Carbon Dioxide Anion Gap BUN Creatinine Estimated GFR (MDRD) Glucose POC Whole Bld Glucose Calcium Magnesium Total Bilirubin AST ALT Alkaline Phosphatase Total Protein Albumin Globulin Albumin/Globulin Ratio Urine Color YELLOW Urine Clarity CLEAR Urine pH 7.5 Ur Specific [place] 1.020 Urine Protein NEGATIVE Urine Glucose (UA) NEGATIVE Urine Ketones 15 H Urine Occult Blood NEGATIVE Urine Nitrite NEGATIVE Urine Bilirubin NEGATIVE Urine Urobilinogen 0.2 (NORMAL) Ur Leukocyte Esterase NEGATIVE Ur Microscopic Review NOT INDICATED Urine Culture Comments NOT INDICATED Serum Ketones PD MEDICAL DECISION MAKING - ED course Complexity details: reviewed results, re-evaluated patient, considered differential, d/w patient ED course: 36-year-old type I diabetic presents the emergency department with 24 hours of nausea and vomiting as well as concerns that his blood glucose has not been well controlled. Admitted to this hospital in July 2020 with new onset DKA. At that time his hemoglobin A1c was greater than 14. Patient reports that over the last week his blood sugars have ranged from 1 50-3 50. He takes 30 units of Lantus each day as well as regular insulin via sliding scale. He did see his PCP 2 days ago and had an A1c that had reduced to 10. He was referred to an quality control microbiology supervisor. Patient is very concerned that his diabetes is not yet fully controlled. On exam the patient appears very well. No abdominal tenderness was elicited. His vital signs are without acute abnormality and no fevers. Screening labs today though they show hyperglycemia in the 240s, he does not have findings of acidosis or ketones and does not present in DKA. This gentleman was given 2 L of IV fluid as well as some Zofran with marked improvement in his nausea and vomiting. Now tolerating p.o. liquids. I will send a prescription for Zofran to the [facility] in [place]. I encourage close follow-up with his primary care provider and appropriate return precautions were discussed. Departure - Departure Disposition: Home, Self Care Clinical Impression: Hyperglycemia DM I (diabetes mellitus, type I), uncontrolled Qualifiers: Glycemic state: with hyperglycemia Qualified Code(s): E10.65 - Type 1 diabetes mellitus with hyperglycemia Condition: Stable Record reviewed to determine appropriate education?: Yes Follow-Up: ALESSIA CHAMBERS DO [Primary Care Provider] - Prescriptions: Ondansetron Odt [Zofran] 4 mg TL Q6H PRN #10 tablet PRN Reason: Nausea / Vomiting Comments: Greg cormier were seen in the emergency department today for vomiting as well as concerns of elevated blood sugar in the setting of type 1 diabetes. As we discussed at the bedside your blood sugars are elevated but you are not in acidosis. Though your hemoglobin A1c was tested 2 days ago and is 10, it has improved since July when it was 14. It is important that you continue to take your insulin especially the Lantus as already prescribed each day. Eat small frequent meals throughout the day and continue to use your insulin sliding scale. If your blood sugars are greater than 450, you have uncontrolled vomiting, suddenly severe abdominal pain or any fevers then it is important that you return to the ER. Your primary care doctor recently made a referral for you to an quality control microbiology supervisor. It is important that you continue to follow-up with this referral. Long-term control of diabetes is something that takes typically many months if not a year or more in order to obtain good control. You are slowly getting there. Continue to eat lean meats, as well as fresh vegetables and continue to count your carbs as you were shown when hospitalized. I have sent a prescription for some Zofran to the [facility] in [place].
--- NOTE | 2021-01-11 18:11 | XRAY Report ---
PROCEDURE: Chest 1 View X-Ray INDICATIONS: chest pain TECHNIQUE: One view of the chest was acquired. COMPARISON: 08/10/2020 FINDINGS: Surgical changes and devices: None. Lungs and pleura: No pleural effusions or pneumothorax. Lungs are clear. Mediastinum: Mediastinal contours appear normal. Heart size is normal. Bones and chest wall: No suspicious bony lesions. Overlying soft tissues appear unremarkable. IMPRESSION: No acute cardiopulmonary findings Reviewed by: Guanakito Colunga MD on 01/11/2021 5:10 PM AKDT Approved by: Guanakito Colunga MD on 01/11/2021 5:10 PM AKDT Station ID: [id number]
[2021-01-11 19:09] LABS: BILIRUBIN,URINE NEGATIVE (NEGATIVE); GLUCOSE, URINE (UA) NEGATIVE (NEGATIVE); KETONES,URINE (UA) 15 mg/dL (NEGATIVE); LEUKOCYTE ESTERASE, URINE NEGATIVE (NEGATIVE); NITRITE,URINE NEGATIVE (NEGATIVE); OCCULT BLOOD,URINE NEGATIVE (NEGATIVE); PH,URINE 7.5 PH (5.0-7.5); PROTEIN,URINE NEGATIVE (NEGATIVE); UROBILINOGEN,URINE 0.2 (NORMAL) E.U./dL (NORMAL)
[2021-01-11 19:12] LABS: CLARITY,URINE CLEAR (CLEAR)
[2021-01-11 19:29] VITALS: BP 136/98
== END 2021-01-11 19:30 | disposition home or self-care (01) ==
LOC: ED 14:35
DX: E10.65 Type 1 diabetes mellitus with hyperglycemia (principal); R11.2 Nausea with vomiting, unspecified; F17.200 Nicotine dependence, unspecified, uncomplicated; Z79.4 Long term (current) use of insulin
CPT/HCPCS: 36415; 80053; 81001; 81003; 82009; 82803; 83735; 85025; 87086; 96360; 99283